=== PATIENT | female | born 1960 | race Two or more races ===

== ENCOUNTER 2023-03-25 09:50 | Emergency (ER) | payer OTHER, SELFPAY ==
[2023-03-25 10:05] VITALS: BP 140/89; PULSE 82; RESP 18; TEMP 36.1; O2SAT 99; BMI 36.6
[2023-03-25 11:07] LABS: MANUAL DIFF FLAG NO
[2023-03-25 11:17] LABS: Basophils Absolute Auto 0.1 X10*3/uL (0.0-0.2); Basophils Percent Auto 1.4 % (0-2); Eosinophils Absolute Auto 0.2 X10*3/uL (0.0-0.4); Eosinophils Percent Auto 2.7 % (0-4); Hematocrit 43.9 % (37.0-47.0); Hemoglobin 14.4 g/dl (12.0-16.0); Imm Gran Pct Auto 1.5 % (0.0-0.4); Lymphocytes Absolute Auto 2.3 X10*3/uL (1.2-4.9); Lymphocytes Percent Auto 34.7 % (20-40); Mean Corpuscular HGB Conc 32.8 g/dl (31.0-35.0); Mean Corpuscular Hemoglobin 30.3 pg (27.0-33.0); Mean Corpuscular Volume 92.4 fL (80.0-98.0); Mean Platelet Volume 10.2 fL (9.4-12.3); Monocytes Absolute Auto 0.6 X10*3/uL (0.1-1.2); Monocytes Percent Auto 8.3 % (2-11); Neutrophils Absolute Auto 3.4 x10*3/uL (2.0-8.3); Neutrophils Percent Auto 51.4 % (45-73); Platelet Count 320 X10*3/uL (160-400); Red Blood Count 4.75 X10*6/uL (4.20-5.50); White Blood Count 6.7 X10*3/uL (4.8-10.8)
[2023-03-25 12:28] LABS: Anion Gap 15 (12-20); Blood Urea Nitrogen 23 mg/dL (9-16); Calcium 9.6 mg/dL (8.4-10.2); Carbon Dioxide 23 mmol/L (22-29); Chloride 108 mmol/L (96-108); Creatinine Clr Calc Pharmacy 94.4; Estimated Glomerular Filt Rate > 60; Glucose Random 105 mg/dL (60-115); Potassium 4.3 mmol/L (3.3-5.1); Sodium 142 mmol/L (135-145)
== END 2023-03-25 19:51 | disposition left against medical advice (07) ==
PROVIDERS: Emergency Provider Emergency Medicine
DX: R20.0 Anesthesia of skin (principal); Z53.21 Procedure and treatment not carried out due to patient leaving prior to being seen by health care provider
CPT/HCPCS: 36415; 80048; 85025; 99281; 99283

== ENCOUNTER 2023-12-01 12:48 | Outpatient (AMB) | payer OTHER, SELFPAY ==
[2023-12-01 13:25] VITALS: BP 138/96; PULSE 99; O2SAT 96; BMI 37.1
--- NOTE | 2023-12-01 13:25 | MHC.OFFVIS ---
Vital Signs 12/01/23 13:25 Height 5 ft 8 in Weight 244 lb BMI 37.1 BP 138/96 H Blood Pressure Location Rt brachial Position Sitting Pulse 99 Pulse Source Pulse Oximeter Pulse Oximetry (%) 96 Oxygen Delivery Method Room Air Intake Visit Reasons: ENP- Trigeminal Neuralgia - CONF Intake Note: Patient presents for trigeminal neuralgia Allergies Penicillins Allergy (Verified 12/01/23 13:28) Rash Medication List - Last Reconciled 12/01/23 by OLGA Haywood acetaminophen ER 650 mg PO TID albuterol sulfate 90 mcg/actuation (Ventolin HFA) inhalation amlodipine 5 mg PO DAILY atorvastatin 80 mg PO DAILY benzonatate 100 mg PO TID ezetimibe mg PO famotidine 20 mg PO DAILY gabapentin 200 mg PO BID hydrochlorothiazide 25 mg PO DAILY levothyroxine 125 mcg PO DAILY losartan 50 mg PO DAILY metoprolol succinate ER 200 mg PO DAILY omeprazole 20 mg PO DAILY oxybutynin chloride ER 5 mg PO DAILY pregabalin 50 mg PO TID sacubitril-valsartan 49-51 mg (Entresto) 1 tab PO BID sumatriptan succinate mg PO HPI Comments Details: Right-handed 63-yr-old female presents for new pt evaluation of headache disorder. Pt is accompanied by her , Russell. Pt reports she has been having a right sided electrical pain headache for at least a year w/o known precipitating causes. The pain runs from a focal spot in the right frontal area (just above the hairline) and runs down into the right eyebrow. The pain is severe. The pain occurs most mornings when she washes her face and then recurs throughout the day- with or without touch. The headache is not a/w photophobia, phonophobia, N/V, red eyes, focal weakness. Sometimes ice helps, some times not. Tylenol helps some. Previously has tried Gabapentin and Pregabalin- does not think these helped. She also has a h/o migraine- her last attack was 3 weeks ago. It is a severe pressure pain in the mid-frontal region and bilateral eyes a/w photophobia, phonophobia, dizziness, N/V, which lasts 1-2 days, and happens at times. Uses Sumatripatn 100mg prn, helps a little, well-tolerated. Head CT, [facility]- unremarkable. She has a strong family h/o aneurysm- her grandmother and maternal cousin and niece have had intracranial aneurysms. PMH and ROS are notable for:? General: Vision has been blurry but not more with the headaches. Had eye exam 2 weeks ago- plans to have left eye cataract surgery. Musculoskeletal disorders or injury: Chronic lower back pain radiates into RLE. Leg cramps at night. History of concussion/head injury: Unsure- once passed out while talking on the pay phone- this was yrs ago. 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 Pertinent denials include: Mood d/o, Sleep d/o, Clotting or hematology d/o, metabolic d/o, History of seizure PFSH Surgical History (Updated 12/01/23 @ 13:32 by OMER Deras) History of cardiac defibrillator placement H/O hernia repair Hx of tonsillectomy Hx of appendectomy H/O: hysterectomy Family History (Updated 12/01/23 @ 13:33 by OMER Deras) Mother Hyperlipidemia Sister Hyperlipidemia Social History (Updated 12/01/23 @ 13:33 by OMER Deras) Alcohol intake: never Patient Tobacco Use Status: Never used Tobacco Physical Exam Vital Signs: Last Vital Signs Pulse 99 12/01/23 13:25 BP 138/96 H 12/01/23 13:25 Pulse Ox 96 12/01/23 13:25 Oxygen Delivery Method Room Air 12/01/23 13:25 BMI result Body Mass Index 37.1 Const Orientation/consciousness: patient oriented x3 Resp Effort & Inspection: normal respiratory effort and able to speak in complete sentences Neuro Other: Palpable tenderness in right supraorbital and trochlear/supratrochlear distributions from right supraorbital notch and right trchlear notch through forehead and frontal region (does not extend into vertex)- this is more tender in supraorbital pathway. Otherwise no palpable tenderness in right temporal or ON distribution. General: patient oriented x3 Cranial nerves: Yes CN's II-XII intact bilaterally ( limits raising rt eyebrow d/t pain, however can raise both symmetrically) Cognition (Neuro): normal cognition Gait exam (Neuro): Normal gait present Motor exam (neuro): 5/5 motor strength present throughout Deep tendon reflexes (DTR's): Right triceps reflex intensity grade: 2+, Left triceps reflex intensity grade: 2+, Rt Biceps (C5, C6): 2+, Left biceps reflex intensity grade: 2+, Right brachioradialis reflex intensity grade: 2+, Left brachioradialis reflex intensity grade: 2+, Right patellar reflex intensity grade: 2+ and Left patellar reflex intensity grade: 2+ Coordination: [id number] test normal, tandem gait normal and Romberg test negative Pupils: Normal pupillary reactivity/response: bilateral Psych Appearance: grossly normal Mental Status: mental status grossly normal Speech and movement: Normal speech and movement present Affect: normal affect Attitude: cooperative Thought process: Normal thought process present Assessment & Plan Assessment & Plan (1) Neuralgia: Code(s): M79.2 - Neuralgia and neuritis, unspecified Category: Medical (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 Category: Medical (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 Check labs for common etiologies. For overall headache management: Optimize good self-care, including but not limited to maintaining a healthy diet, adequate fluid intake, adequate sleep, and engaging in regular physical activity. Track headaches, especially after any treatment regimen changes. For supraorbital and trochlear neuralgia headache: Trial Carbamazepine ER 100mg qhs x's 1 wk, then 100mg bid. Check baseline labs. Future considerations- nerve block For acute migraine headache treatment: Continue Sumatriptan 100mg prn, MR x's 1 in 2hrs. Previous acute migraine medication trials: no known others Acute migraine medication contraindications: None at this time For migraine headache prevention medication: Continue Metoprolol- used for HTN F/u upon review of above and pt to follow-up in in-clinic in 3 months or sooner prn. Orders: Orders CRP High Sensitivity Today E06.3 - Autoimmune thyroiditis, E78.5 - Hyperlipidemia, unspecified, G43.009 - Migraine without aura, not intractable, without status migrainosus, I10 - Essential (primary) hypertension, M79.2 - Neuralgia and neuritis, unspecified, R53.83 - Other fatigue TSH reflex Free T4 Today E06.3 - Autoimmune thyroiditis, E78.5 - Hyperlipidemia, unspecified, G43.009 - Migraine without aura, not intractable, without status migrainosus, I10 - Essential (primary) hypertension, M79.2 - Neuralgia and neuritis, unspecified, R53.83 - Other fatigue Vitamin B12 and Folate Today E06.3 - Autoimmune thyroiditis, E78.5 - Hyperlipidemia, unspecified, G43.009 - Migraine without aura, not intractable, without status migrainosus, I10 - Essential (primary) hypertension, M79.2 - Neuralgia and neuritis, unspecified, R53.83 - Other fatigue Hemoglobin A1c Today E06.3 - Autoimmune thyroiditis, E78.5 - Hyperlipidemia, unspecified, G43.009 - Migraine without aura, not intractable, without status migrainosus, I10 - Essential (primary) hypertension, M79.2 - Neuralgia and neuritis, unspecified, R53.83 - Other fatigue MR head/brain wo/w con Today G50.0 - Trigeminal neuralgia, H49.10 - Fourth [trochlear] nerve palsy, unspecified eye, Z82.49 - Family history of ischemic heart disease and other diseases of the circulatory system, Z85.118 - Personal history of other malignant neoplasm of bronchus and lung Complete Blood Count Auto Diff Today E06.3 - Autoimmune thyroiditis, E78.5 - Hyperlipidemia, unspecified, G43.009 - Migraine without aura, not intractable, without status migrainosus, I10 - Essential (primary) hypertension, M79.2 - Neuralgia and neuritis, unspecified, R53.83 - Other fatigue Comprehensive Met. Panel Today E06.3 - Autoimmune thyroiditis, E78.5 - Hyperlipidemia, unspecified, G43.009 - Migraine without aura, not intractable, without status migrainosus, I10 - Essential (primary) hypertension, M79.2 - Neuralgia and neuritis, unspecified, R53.83 - Other fatigue Erythrocyte Sedimentation Rate Today E06.3 - Autoimmune thyroiditis, E78.5 - Hyperlipidemia, unspecified, G43.009 - Migraine without aura, not intractable, without status migrainosus, I10 - Essential (primary) hypertension, M79.2 - Neuralgia and neuritis, unspecified, R53.83 - Other fatigue Lyme IgG/IgM w/reflex to WB Today E06.3 - Autoimmune thyroiditis, E78.5 - Hyperlipidemia, unspecified, G43.009 - Migraine without aura, not intractable, without status migrainosus, I10 - Essential (primary) hypertension, M79.2 - Neuralgia and neuritis, unspecified, R53.83 - Other fatigue AMANDA Reflex Titer and Pattern Today E06.3 - Autoimmune thyroiditis, E78.5 - Hyperlipidemia, unspecified, G43.009 - Migraine without aura, not intractable, without status migrainosus, I10 - Essential (primary) hypertension, M79.2 - Neuralgia and neuritis, unspecified, R53.83 - Other fatigue Rheumatoid Factor Today E06.3 - Autoimmune thyroiditis, E78.5 - Hyperlipidemia, unspecified, G43.009 - Migraine without aura, not intractable, without status migrainosus, I10 - Essential (primary) hypertension, M79.2 - Neuralgia and neuritis, unspecified, R53.83 - Other fatigue MR angio head wo con Today G50.0 - Trigeminal neuralgia, H49.10 - Fourth [trochlear] nerve palsy, unspecified eye, Z82.49 - Family history of ischemic heart disease and other diseases of the circulatory system Medications: New carbamazepine ER 100 mg PO BID 30 days 60 caps 3RF Coding Level of Care Code New Pt Level 4 (18735) Diagnoses Neuralgia M79.2 Supraorbital neuralgia G50.0 Trochlear nerve disease or syndrome H49.10 Migraine without aura G43.009 Family history of intracranial aneurysms Z82.49
== END 2023-12-01 14:39 | disposition home or self-care (01) ==
PROVIDERS: Visit Provider Nurse Practitioner Family
DX: G50.0 Trigeminal neuralgia (principal); H49.10 Fourth [trochlear] nerve palsy, unspecified eye; G43.009 Migraine without aura, not intractable, without status migrainosus; Z82.49 Family history of ischemic heart disease and other diseases of the circulatory system
CPT/HCPCS: 99204

== ENCOUNTER → 2023-12-01 12:48 | Outpatient (BNVA) | payer OTHER, SELFPAY | PROVIDERS: Visit Provider Nurse Practitioner Family | DX: G43.009 Migraine without aura, not intractable, without status migrainosus (principal); G50.0 Trigeminal neuralgia; H49.10 Fourth [trochlear] nerve palsy, unspecified eye; M54.50 Low back pain, unspecified; G89.29 Other chronic pain; Z82.49 Family history of ischemic heart disease and other diseases of the circulatory system | CPT/HCPCS: 99202 ==

== ENCOUNTER 2023-12-01 14:41 | Outpatient (REF) | payer OTHER, SELFPAY ==
[2023-12-01 17:43] LABS: MANUAL DIFF FLAG NO
[2023-12-01 17:53] LABS: Basophils Absolute Auto 0.1 X10*3/uL (0.0-0.2); Basophils Percent Auto 0.9 % (0-2); Eosinophils Absolute Auto 0.2 X10*3/uL (0.0-0.4); Eosinophils Percent Auto 2.4 % (0-4); Hematocrit 38.4 % (37.0-47.0); Hemoglobin 12.8 g/dl (12.0-16.0); Imm Gran Abs Auto 0.03 X10*3/uL (0.00-0.03); Imm Gran Pct Auto 0.3 % (0.0-0.4); Lymphocytes Absolute Auto 1.8 X10*3/uL (1.2-4.9); Lymphocytes Percent Auto 21.2 % (20-40); Mean Corpuscular HGB Conc 33.3 g/dl (31.0-35.0); Mean Corpuscular Hemoglobin 29.2 pg (27.0-33.0); Mean Corpuscular Volume 87.7 fL (80.0-98.0); Mean Platelet Volume 9.8 fL (9.4-12.3); Monocytes Absolute Auto 0.6 X10*3/uL (0.1-1.2); Monocytes Percent Auto 7.2 % (2-11); Neutrophils Absolute Auto 5.8 x10*3/uL (2.0-8.3); Platelet Count 280 X10*3/uL (160-400); Red Blood Count 4.38 X10*6/uL (4.20-5.50); Red Cell Distribution Width 13.9 % (11.0-16.0); White Blood Count 8.6 X10*3/uL (4.8-10.8)
[2023-12-01 17:55] LABS: Estimated Average Glucose 100 mg/dL; Hemoglobin A1c % 5.1 % (<6.0)
[2023-12-01 18:04] LABS: Alanine Aminotransferase 22 U/L (0-31); Albumin Level 4.5 g/dL (3.5-5.0); Alkaline Phosphatase 75 U/L (39-117); Anion Gap 14 (12-20); Aspartate Amino Transferase 17 U/L (5-31); Bilirubin Total 0.7 mg/dL (0.0-1.0); Blood Urea Nitrogen 20 mg/dL (9-16); Calcium 9.5 mg/dL (8.4-10.2); Carbon Dioxide 25 mmol/L (22-29); Chloride 108 mmol/L (96-108); Estimated Glomerular Filt Rate > 60; Glucose Random 93 mg/dL (60-115); Potassium 3.9 mmol/L (3.3-5.1); Sodium 143 mmol/L (135-145); Total Protein 7.4 g/dL (6.5-8.0)
[2023-12-01 18:19] LABS: TSH reflex Free T4 1.21 uIU/mL (0.32-4.0)
[2023-12-01 18:30] LABS: Rheumatoid Factor < 13.0 IU/mL (<15.0)
[2023-12-01 18:34] LABS: Folate 10.6 ng/mL (> or = 4.0); Vitamin B12 442 pg/mL (200-900)
[2023-12-01 18:36] LABS: Erythrocyte Sedimentation Rate 7 MM/HR (0-20)
[2023-12-02 12:48] LABS: Lyme Abs Screen <0.90 index
[2023-12-02 12:53] LABS: CRP High Sensitivity 4.3 mg/L
[2023-12-07 09:04] LABS: Anti Nuclear Antibody Screen NEGATIVE (NEGATIVE)
== END 2023-12-01 14:42 | disposition home or self-care (01) ==
LOC: HO.HKASLDS 14:41
PROVIDERS: Visit Provider Nurse Practitioner Family
DX: M79.2 Neuralgia and neuritis, unspecified (principal); G43.009 Migraine without aura, not intractable, without status migrainosus; R53.83 Other fatigue; I10 Essential (primary) hypertension; E78.5 Hyperlipidemia, unspecified; E06.3 Autoimmune thyroiditis
CPT/HCPCS: 36415; 80053; 82607; 82746; 83036; 84443; 85025; 85652; 86038; 86141; 86431; 86617; 86618

== ENCOUNTER 2024-02-08 08:28 | Outpatient (AMB) | payer OTHER, SELFPAY ==
[2024-02-08 09:24] VITALS: BMI 37.9
--- NOTE | 2024-02-08 09:24 | A.OFFVIS_ITS ---
Vital Signs 02/08/24 09:24 Height 5 ft 8 in Weight 249 lb BMI 37.9 Intake Visit Reasons: 3mo F/U Intake Note: Patient presents for 3 month follow up. Allergies Penicillins Allergy (Verified 02/08/24 09:27) Rash Medication List - Last Reconciled 02/08/24 by OLGA Haywood acetaminophen ER 650 mg PO TID albuterol sulfate 90 mcg/actuation (Ventolin HFA) inhalation amlodipine 5 mg PO DAILY atorvastatin 80 mg PO DAILY benzonatate 100 mg PO TID carbamazepine ER 100 mg PO BID 30 days ezetimibe mg PO famotidine 20 mg PO DAILY hydrochlorothiazide 25 mg PO DAILY levothyroxine 125 mcg PO DAILY losartan 50 mg PO DAILY metoprolol succinate ER 200 mg PO DAILY omeprazole 20 mg PO DAILY oxybutynin chloride ER 5 mg PO DAILY sacubitril-valsartan 49-51 mg (Entresto) 1 tab PO BID sumatriptan succinate mg PO HPI Comments Details: 63-yr-old female follows up for right-sided head pain. She continues to have up to 3-4 episodes of right sided facial pain.. Today pt clarifies- the headache starts as a severe electrical pain from a focal spot in the right frontal area (just above the hairline) and runs down into the mid right eyebrow, and takes over her eye and right [place] division I region. The pain is severe, repeated severe pains lasting 20 minutes. A/w restlessness, right eyelid swelling, possibly diaphoresis. Sometimes the pain is so severe she drops to he rknees. The worst attacks are at night between 2-4am, but can recurs up to 4 x's per day. Touching her right eye region can trigger an attack, but attacks can be triggered w/o touch. Attacks are not triggered by light tough, chewing, or wind exposure. Started Crabamazepine- has not helped. She had a [facility] ER eval for this last week- was tx'd w/ toradol- pt states was not very helpful. She has never tried Oxygen tx. She has not had brain ZMRI/MRA yet- unsure why not. HPI from 12/01/23: Right-handed 63-yr-old female presents for new pt evaluation of headache disorder. Pt is accompanied by her , Russell. Pt reports she has been having a right sided electrical pain headache for at least a year w/o known precipitating causes. The pain runs from a focal spot in the right frontal area (just above the hairline) and runs down into the right eyebrow. The pain is severe. The pain occurs most mornings when she washes her face and then recurs throughout the day- with or without touch. The headache is not a/w photophobia, phonophobia, N/V, red eyes, focal weakness. Sometimes ice helps, some times not. Tylenol helps some. Previously has tried Gabapentin and Pregabalin- does not think these helped. She also has a h/o migraine- her last attack was 3 weeks ago. It is a severe pressure pain in the mid-frontal region and bilateral eyes a/w photophobia, phonophobia, dizziness, N/V, which lasts 1-2 days, and happens at times. Uses Sumatripatn 100mg prn, helps a little, well-tolerated. Head CT, [facility]- unremarkable. She has a strong family h/o aneurysm- her grandmother and maternal cousin and niece have had intracranial aneurysms. PMH and ROS are notable for:? General: Vision has been blurry but not more with the headaches. Had eye exam 2 weeks ago- plans to have left eye cataract surgery. Musculoskeletal disorders or injury: Chronic lower back pain radiates into RLE. Leg cramps at night. History of concussion/head injury: Unsure- once passed out while talking on the pay phone- this was yrs ago. Respiratory d/o: Asthma COPD CV disease: HTN HLD Endocrine or metabolic d/o: Thyroid d/o History of syncope- unsure if had had more GI d/o: GERD, Constipation: STAFF PSYCHOLOGIST: post-menopausal Family history of migraine or other headache disorder: her dtr and mother. Pertinent denials include: Mood d/o, Sleep d/o, Clotting or hematology d/o, metabolic d/o, History of seizure PFSH Surgical History History of cardiac defibrillator placement H/O hernia repair Hx of tonsillectomy Hx of appendectomy H/O: hysterectomy Family History Mother Hyperlipidemia Sister Hyperlipidemia Social History Alcohol intake: never Patient Tobacco Use Status: Never used Tobacco Physical Exam Vital Signs: BMI result Body Mass Index 37.9 Const Orientation/consciousness: patient oriented x3 Resp Effort & Inspection: normal respiratory effort and able to speak in complete sentences Neuro Other: Pt declined scalp/forehead/orbital/trochlear palpation today- states will induce headache attack. 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 Category: Medical (3) Migraine without aura: Code(s): G43.009 - Migraine without aura, not intractable, without status migrainosus Category: Medical (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 Will check on status. Recheck ESR For overall headache management: * Optimize good self-care, including but not limited to maintaining a healthy diet, adequate fluid intake, adequate sleep, and engaging in regular physical activity. * Track headaches, especially after any treatment regimen changes. For cluster headache: Start Home high flow O2 12-15 lpm via non-rebreather mask at onset of attack- pt will need both M tank and E-tanks. Continue Sumatriptan 100mg prn, MR x's 1 in 2hrs. Future considerations- trial of verapamil. For supraorbital and trochlear neuralgia headache: Increase Carbamazepine ER from 100mg bid to 200mg bid. Trial adding Melatonin 3mg q evening. Recheck labs in 1 month. Future considerations- nerve block For acute migraine headache treatment: Continue Sumatriptan 100mg prn, MR x's 1 in 2hrs. Previous acute migraine medication trials: no known others Acute migraine medication contraindications: None at this time For migraine headache prevention medication: Continue Metoprolol- used for HTN F/u upon review of above and pt to follow-up in in-clinic in 3 months or sooner prn. Orders: Orders 2 Complete Blood Count Auto Diff 1 Month E78.5 - Hyperlipidemia, unspecified, G44.009 - Cluster headache syndrome, unspecified, not intractable, I10 - Essential (primary) hypertension, M79.2 - Neuralgia and neuritis, unspecified Erythrocyte Sedimentation Rate 02/08/24 E78.5 - Hyperlipidemia, unspecified, I10 - Essential (primary) hypertension, M79.2 - Neuralgia and neuritis, unspecified CRP High Sensitivity 02/08/24 E78.5 - Hyperlipidemia, unspecified, I10 - Essential (primary) hypertension, M79.2 - Neuralgia and neuritis, unspecified Comprehensive Met. Panel 1 Month E78.5 - Hyperlipidemia, unspecified, G44.009 - Cluster headache syndrome, unspecified, not intractable, I10 - Essential (primary) hypertension, M79.2 - Neuralgia and neuritis, unspecified Carbamazepine Tegretol 1 Month E78.5 - Hyperlipidemia, unspecified, G40.909 - Epilepsy, unspecified, not intractable, without status epilepticus, G44.009 - Cluster headache syndrome, unspecified, not intractable, I10 - Essential (primary) hypertension, M79.2 - Neuralgia and neuritis, unspecified Medications: New melatonin 3 mg PO BEDTIME 30 days PRN 30 tabs 3RF sleep Oxygen Home Use 10-15 lpm, at onset of headache, via non-rebreather mask x's up to 20 minutes per headache attack. M-tanks and E-tanks. 2 ea 11RF acute cluster headache treatment G44.009 - Cluster headache syndrome, unspecified, not intractable Changed From carbamazepine ER 100 mg PO BID 30 days 60 caps 3RF To carbamazepine ER 200 mg (2 x 100 mg) PO BID 30 days 120 caps 3RF Coding Level of Care Code Est Pt Level 4 (15879) Diagnoses Cluster headache G44.009 Supraorbital neuralgia G50.0 Migraine without aura G43.009 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
== END 2024-02-08 10:57 | disposition home or self-care (01) ==
PROVIDERS: Visit Provider Nurse Practitioner Family
DX: G44.009 Cluster headache syndrome, unspecified, not intractable (principal); G50.0 Trigeminal neuralgia; G43.009 Migraine without aura, not intractable, without status migrainosus; H49.10 Fourth [trochlear] nerve palsy, unspecified eye; M79.2 Neuralgia and neuritis, unspecified; Z82.49 Family history of ischemic heart disease and other diseases of the circulatory system
CPT/HCPCS: 99214

== ENCOUNTER → 2024-02-08 08:28 | Outpatient (BNVA) | payer OTHER, SELFPAY | PROVIDERS: Visit Provider Nurse Practitioner Family | DX: G44.009 Cluster headache syndrome, unspecified, not intractable (principal); G50.0 Trigeminal neuralgia; H49.10 Fourth [trochlear] nerve palsy, unspecified eye; E78.5 Hyperlipidemia, unspecified; I10 Essential (primary) hypertension; Z82.49 Family history of ischemic heart disease and other diseases of the circulatory system | CPT/HCPCS: 99212 ==

== ENCOUNTER 2024-02-08 11:07 | Outpatient (REF) | payer OTHER, SELFPAY ==
[2024-02-08 14:33] LABS: Erythrocyte Sedimentation Rate 10 MM/HR (0-20)
[2024-02-10 17:47] LABS: CRP High Sensitivity 3.4 mg/L
== END 2024-02-08 11:08 | disposition home or self-care (01) ==
LOC: HO.HKASLDS 11:07
PROVIDERS: Visit Provider Nurse Practitioner Family
DX: M79.2 Neuralgia and neuritis, unspecified (principal); I10 Essential (primary) hypertension; E78.5 Hyperlipidemia, unspecified
CPT/HCPCS: 36415; 85652; 86141

== ENCOUNTER 2024-03-30 09:01 | Outpatient (REF) | payer OTHER, SELFPAY ==
--- NOTE | ~2024-03-30 | MR_ITS ---
EXAMINATION: MR BRAIN WITHOUT AND WITH CONTRAST MR ANGIOGRAPHY BRAIN WITHOUT CONTRAST CLINICAL INFORMATION: Trigeminal neuralgia. 4th nerve palsy. COMPARISON: None available. TECHNIQUE: Multiplanar, multisequence MRI of the brain was obtained using a skull base protocol without intravenous contrast. IV access was not able to be obtained. No contrast was utilized during this exam. 3D [id number] MR angiography was performed through the brain without the use of intravenous gadolinium. 3D postprocessing including acquisition of multiplanar MIP reformats are obtained at the technologist workstation and utilized for image interpretation. Stenoses are assessed in accordance with NASCET criteria unless otherwise indicated. FINDINGS: Brain MRI: No focal restricted diffusion is demonstrated to suggest acute or subacute cerebral ischemia. No evidence of acute or chronic hemorrhagic products on heme-sensitive imaging. Normal parenchymal signal characteristics. The ventricles are normal in morphology and size. No abnormal mass effect. No midline shift. Moderate expansion of the sella turcica with flattening of the pituitary gland. Normal positioning of the cerebellar tonsils. No mass of the cerebellopontine angles. Normal appearance of the cranial nerve V, VII, and VIII nerve roots. No edema or vascular loops near the nerve root entry sites. Normal appearance of the internal auditory canals. Normal appearance of the labyrinthine structures without loss of T2 signal. Normal arterial and venous vascular flow voids are present. No abnormal intracranial contrast enhancement. Normal, homogeneous marrow signal. Mild mucosal thickening of the paranasal sinuses. No signal abnormalities within the mastoids. No demonstrated abnormalities of the orbits on limited evaluation. Head MRA: Normal flow-related signal within the anterior circulation without evidence of focal stenosis or occlusion of the intradural internal carotid, middle cerebral, or anterior cerebral arteries. Normal flow-related signal within the posterior circulation without evidence of focal stenosis or occlusion of the intradural vertebral, basilar, superior cerebellar, or posterior cerebral arteries. No demonstrated intradural aneurysms. MR/MR angio head wo con IMPRESSION: 1. No acute intracranial abnormalities. No abnormal intracranial enhancement. 2. No MRI abnormalities to explain the patient's symptoms. 3. Normal MRA of the head. Electronically signed by: Wes Iverson DO 04/02/2024 03:32 PM [facility] [place]
--- NOTE | ~2024-03-30 | MR_ITS ---
EXAMINATION: MR BRAIN WITHOUT AND WITH CONTRAST MR ANGIOGRAPHY BRAIN WITHOUT CONTRAST CLINICAL INFORMATION: Trigeminal neuralgia. 4th nerve palsy. COMPARISON: None available. TECHNIQUE: Multiplanar, multisequence MRI of the brain was obtained using a skull base protocol without intravenous contrast. IV access was not able to be obtained. No contrast was utilized during this exam. 3D [id number] MR angiography was performed through the brain without the use of intravenous gadolinium. 3D postprocessing including acquisition of multiplanar MIP reformats are obtained at the technologist workstation and utilized for image interpretation. Stenoses are assessed in accordance with NASCET criteria unless otherwise indicated. FINDINGS: Brain MRI: No focal restricted diffusion is demonstrated to suggest acute or subacute cerebral ischemia. No evidence of acute or chronic hemorrhagic products on heme-sensitive imaging. Normal parenchymal signal characteristics. The ventricles are normal in morphology and size. No abnormal mass effect. No midline shift. Moderate expansion of the sella turcica with flattening of the pituitary gland. Normal positioning of the cerebellar tonsils. No mass of the cerebellopontine angles. Normal appearance of the cranial nerve V, VII, and VIII nerve roots. No edema or vascular loops near the nerve root entry sites. Normal appearance of the internal auditory canals. Normal appearance of the labyrinthine structures without loss of T2 signal. Normal arterial and venous vascular flow voids are present. No abnormal intracranial contrast enhancement. Normal, homogeneous marrow signal. Mild mucosal thickening of the paranasal sinuses. No signal abnormalities within the mastoids. No demonstrated abnormalities of the orbits on limited evaluation. Head MRA: Normal flow-related signal within the anterior circulation without evidence of focal stenosis or occlusion of the intradural internal carotid, middle cerebral, or anterior cerebral arteries. Normal flow-related signal within the posterior circulation without evidence of focal stenosis or occlusion of the intradural vertebral, basilar, superior cerebellar, or posterior cerebral arteries. No demonstrated intradural aneurysms. MR/MR head/brain wo con IMPRESSION: 1. No acute intracranial abnormalities. No abnormal intracranial enhancement. 2. No MRI abnormalities to explain the patient's symptoms. 3. Normal MRA of the head. Electronically signed by: Wes Iverson DO 04/02/2024 03:32 PM [facility]
--- OUTSIDE RECORDS SUMMARY | 2024-03-30 09:15 | XMS_ITS | Continuity of Care Document ---
Author Organization [facility] Address [address] [place] [address]- Care Team Providers Care Logistics Team Leader Name Role Phone Karime Mar MD, Nery German Primary Care Physicia n [id number] Date(s): 02/28/24 - 02/29/24 [facility] [address] [place] [address]- Discharge Disposition: A-D/C Walkout Attending Physician: Not on Staff, Attending MD Admitting Physician: Not on Staff, Admitting MD Referring Physician: Not on Staff, Referring MD Encounter Type: Disch ES Allergies, Adverse Reactions, Alerts Substance Criticality Severity Reaction Reaction Severity Status penicillin hives/swelling Acti ve Medications acetaminophen 650 mg oral tablet, extended release 0 Refills, Maintenance, 12/02/21 8:50:00 PM EDT, Partial fill upon patient request if the prescription is for a schedule II opioid drug. Start Date: 12/02/21 Status: Ordered Repeat number: 1 aspirin 81 mg oral delayed release tablet 81 mg, By Mouth, Daily, Refills 0, Maintenance, 12/03/21 5:03:00 PM EDT, Partial fill upon patient request if the prescription is for a schedule II opioid drug. Start Date: 12/03/21 Status: Ordered Repeat number: 1 carBAMazepine 100 mg oral tablet, extended release 200 mg, 2, tablet, By Mouth, 2 times a day, # 120 tablet, Refills 0, Tot. Refills 0, Maintenance, 01/28/24 2:44:00 PM EDT, Route to Pharmacy Electronically, [facility]/pharmacy #[id number], Partial fill upon patient request if the prescription is for a schedule II opioid drug., 170, cm, 01/28/24 13:16:00 EDT, Height, 110, kg, 07/15/23 11:11:00 EDT, Dry Weight Start Date: 01/28/24 Stop Date: 02/27/24 Status: Ordered Quantity: 120.0 Unit: tablet Repeat number: 1 diclofenac potassium 50 mg oral tablet TOME PHYLLIS TABLETA DOS VECES AL D A CUANDO SEA NECESARIO Start Date: 12/02/21 Status: Ordered Repeat number: 1 dicyclomine 10 mg oral capsule TAKE 1 CAPSULE BY MOUTH 3 TIMES DAILY NEEDED FOR DIARRHEA Start Date: 12/02/21 Status: Ordered Repeat number: 1 docusate sodium 100 mg oral capsule TOME PHYLILS C PSULA DOS VECES AL D A POR 10 D Start Date: 12/02/21 Status: Ordered Repeat number: 1 ezetimibe 10 mg oral tablet 1 tablet = 10 mg, By Mouth, Daily, 0 Refills, Maintenance, 10/26/23 6:48:00 AM EDT, Partial fill uponpatient request if the prescription is for a schedule II opioid drug. Start Date: 10/26/23 Status: Ordered Repeat number: 1 famotidine 20 mg oral tablet TAKE 1 TABLET BY MOUTH AT BEDTIME NEEDED FOR HEARTBURN. Start Date: 12/02/21 Status: Ordered Repeat number: 1 fluticasone 50 mcg/inh nasal spray 1 sprays, Nares, Both, 2 times a day, # 16 Gm, 0 Refills, Maintenance, 12/02/21 8:50:00 PM EDT, [facility], Partial fill upon patient request if the prescription is for a schedule II opioid drug. Start Date: 12/02/21 Status: Ordered Quantity: 16.0 Unit: g Repeat number: 1 gabapentin 300 mg oral capsule 300 mg, 1, capsule, By Mouth, Daily, Refills 0, Maintenance, 12/02/21 8:55:00 PM EDT, Partial fill upon patient request if the prescription is for a schedule II opioid drug. Start Date: 12/02/21 Status: Ordered Repeat number: 1 hydrochlorothiazide 25 mg oral tablet 25 mg, 1, tablet, By Mouth, Daily, 0 Refills Start Date: 08/05/07 Status: Ordered Repeat number: 1 levothyroxine 0.137 mg oral tablet TOME PHYLLIS TABLETA TODOS LOS D Start Date: 12/02/21 Status: Ordered Repeat number: 1 losartan 50 mg oral tablet TOME PHYLLIS TABLETA ESPINOSA D Start Date: 12/02/21 Status: Ordered Repeat number: 1 ondansetron 4 mg oral tablet, disintegrating 1 tablet = 4 mg, By Mouth, Every 8 hours, PRN Nausea & Vomiting, # 15 tablet, 0 Refills, Acute 03/25/24 3:00:00 AM EST, 02/24/24 3:54:00 AM EST, Tablet, [facility]/pharmacy #[id number], Partial fill upon patient request if the prescription is for a schedule II opioid drug., 173, cm, 02/23/24 22:33:00 EST, Height, 113.4, kg, 02/23/24 22:33:00 EST, Dry Weight Start Date: 02/24/24 Stop Date: 03/25/24 Status: Ordered Quantity: 15.0 Unit: tablet Repeat number: 1 oxybutynin 5 mg/24 hours oral tablet, extended release JOSEPH FERGUSON TABLETA BRUNO D Start Date: 12/02/21 Status: Ordered Repeat number: 1 pregabalin 50 mg oral capsule 1 capsule = 50 mg, By Mouth, 3 times a day, # 42 capsule, 0 Refills, Maintenance, 07/15/23 1:13:00 PM EDT, Capsule, [facility]/pharmacy #[id number], Partial fill upon patient request if the prescription is for a schedule II opioid drug., 173, cm, 07/15/23 11:11:00 EDT, Height, 110, kg, 07/15/23 11:11:00 EDT, DryWeight Start Date: 07/15/23 Stop Date: 07/29/23 Status: Ordered Quantity: 42.0 Unit: capsule Repeat number: 1 ProAir HFA 90 mcg/inh inhalation aerosol with adapter Refills 0, Maintenance, 12/02/21 8:51:00 PM EDT Start Date: 12/02/21 Status: Ordered Repeat number: 1 SUMAtriptan 100 mg oral tablet TAKE 1 TABLET BY MOUTH NEEDED FOR MIGRAINE. MAY RPT ONCE AFTER 2 HRS IF NEEDED MAX 2 TABLETS/DAY Start Date: 12/02/21 Status: Ordered Repeat number: 1 Problem List Condition Confirmation Course Effective Dates Status H ealth Status Informant Hyperlipidemia Confirmed Active Hypothyroid Confirmed Active Migraine Confirmed Active Severe obesity (BMI 35.0-39.9) with comorbidity Confirmed Active Vital Signs Most recent to oldest [Reference Range]: 1 2 Height 173 cm (02/28/24 9:59 PM) 173 cm (02/28/24 9:05 PM) Weight 112.5 kg (02/28/24 9:59 PM) 112.5 kg (02/28/24 9:05 PM) Oxygen Saturation [94-100 %] 100 % (02/29/24 12:49 AM) 99 % (02/28/24:05 PM) Pulse Rate [55-90 bpm] 81 bpm (02/29/24 12:49 AM) 80 bpm (02/28/24:05 PM) Body Mass Index [18.5-24.99 kg/m2] 37.59 kg/m2 *>HHI* (02/28/24:05 PM) Blood Pressure [90-138/55-84 mm Hg] 138/ 83mm Hg (02/29/24 12:49 AM) 151/94mm Hg *H* (02/28/24:05 PM) Respiratory Rate [16-30 br/min] 22 br/mi n (02/28/24:05 PM) Temperature [96.8-100.4 DegF] 98.2 DegF (02/29/24 12:49 AM) 97.7 DegF (02/28/24:05 PM) Mode of Delivery (Oxygen) Room air (02/28/24 9:05 PM) Blood pressure sites Arm, right (02/29/24 12:49 AM) Arm, left (02/28/24 9:05 PM) Temperature Route Oral (02/29/24 12:49 AM) Oral (02/28/24 9:05 PM) Dry Weight 112.5 kg (02/28/24 9:59 PM) 112.5 kg (02/28/24 9:05 PM) Weight Obtained Via Standing scale (02/28/24 9:05 PM) Dry Weight Obtained Via Standing scale (02/28/24 9:05 PM) Patient Care team information Care Team Personnel Name: Nery Valentine MD Position: Reference Physician Member Role: PCP Address: [address] [place] [address] [facility] [place] [phone] [place] [employer]: Care Team Related Persons Name: FAMILIA REN Name: TERRELL OTOOLE Name: YAMILE ROSARIO Insurance Providers Guarantor name: JUAN RASHID Health Plan Information #: 1 Payer: [employer] Member Number: [id number] Policy Number: NA Group Number: NA Health Plan Information #: 2 Payer: [employer] Member Number: [id number] Policy Number: NA Group Number: NA
== END 2024-03-30 09:02 | disposition home or self-care (01) ==
LOC: HO.MRI 09:01
PROVIDERS: PCP Internal Medicine; Visit Provider Nurse Practitioner Family
DX: G50.0 Trigeminal neuralgia (principal); H49.10 Fourth [trochlear] nerve palsy, unspecified eye; Z82.49 Family history of ischemic heart disease and other diseases of the circulatory system
CPT/HCPCS: 70544; 70551

== ENCOUNTER 2024-06-14 09:48 | Outpatient (AMB) | payer OTHER, SELFPAY ==
--- NOTE | 2024-06-14 09:55 | A.OFFVIS_ITS ---
Vital Signs 06/14/24 09:56 Height 5 ft 8 in Weight 245 lb BMI 37.2 BP 140/90 H Blood Pressure Location Rt brachial Position Sitting Pulse 75 Pulse Source Pulse Oximeter Pulse Oximetry (%) 96 Oxygen Delivery Method Room Air Intake Visit Reasons: Follow Up Intake Note: Patient presents follow up headaches. Labs in chart Relief Pilot Services: Relief Pilot Offered & Declined Allergies Penicillins Allergy (Verified 07/03/24 09:09) Rash Medication List - Last Reconciled 06/14/24 by OLGA Haywood acetaminophen ER 650 mg PO TID albuterol sulfate 90 mcg/actuation (Ventolin HFA) inhalation amlodipine 5 mg PO DAILY atorvastatin 80 mg PO DAILY benzonatate 100 mg PO TID carbamazepine ER 200 mg (2 x 100 mg) PO BID 30 days diclofenac potassium 50 mg PO BID PRN 30 days MDD max 15 days per month ezetimibe mg PO famotidine 20 mg PO DAILY hydrochlorothiazide 25 mg PO DAILY levothyroxine 125 mcg PO DAILY losartan 50 mg PO DAILY melatonin 3 mg PO BEDTIME PRN 30 days metoprolol succinate ER 200 mg PO DAILY omeprazole 20 mg PO DAILY oxybutynin chloride ER 5 mg PO DAILY Oxygen Home Use 10-15 lpm, at onset of headache, via non-rebreather mask x's up to 20 minutes per headache attack. M-tanks and E-tanks. sacubitril-valsartan 49-51 mg (Entresto) 1 tab PO BID sumatriptan succinate mg PO HPI Comments Details: History of Present Illness The patient is a 64-year-old female presenting with concerns regarding persistent cluster headaches and right facial pain. Denies significant interval medical history changes or hospitalizations. Her cluster headaches have improved. The cluster headaches still occur mostly during the middle of the night. However, they resolve with using p.r.n. O2 at 25 lpm via a non-rebreather mask after approximately 5 minutes. She continues have right facial pain- described as severe pulse-like bursts of right supratrocheear and right trochlear region. This is also a/w right eye redness/ptosis, Triggers include light touch, cold. Since the last visit, patient started on carbamazepine, which has had partial benefit. She has not has follow-up labs yet. Sumatriptan provides partial relief. Interval March 2024 brain MRI with and without contrast and brain MRA without contrast: Within normal limits 02/08/2024 follow-up HPI: She continues to have up to 3-4 episodes of right sided facial pain.. Today pt clarifies- the headache starts as a severe electrical pain from a focal spot in the right frontal area (just above the hairline) and runs down into the mid right eyebrow, and takes over her eye and right TN division I region. The pain is severe, repeated severe pains lasting 20 minutes. A/w restlessness, right eyelid swelling, possibly diaphoresis. Sometimes the pain is so severe she drops to he rknees. The worst attacks are at night between 2-4am, but can recurs up to 4 x's per day. Touching her right eye region can trigger an attack, but attacks can be triggered w/o touch. Attacks are not triggered by light tough, chewing, or wind exposure. Started Crabamazepine- has not helped. She had a [facility] ER eval for this last week- was tx'd w/ toradol- pt states was not very helpful. She has never tried Oxygen tx. She has not had brain ZMRI/MRA yet- unsure why not. HPI from 12/01/23: Right-handed 63-yr-old female presents for new pt evaluation of headache disorder. Pt is accompanied by her , Russell. Pt reports she has been having a right sided electrical pain headache for at least a year w/o known precipitating causes. The pain runs from a focal spot in the right frontal area (just above the hairline) and runs down into the right eyebrow. The pain is severe. The pain occurs most mornings when she washes her face and then recurs throughout the day- with or without touch. The headache is not a/w photophobia, phonophobia, N/V, red eyes, focal weakness. Sometimes ice helps, some times not. Tylenol helps some. Previously has tried Gabapentin and Pregabalin- does not think these helped. She also has a h/o migraine- her last attack was 3 weeks ago. It is a severe pressure pain in the mid-frontal region and bilateral eyes a/w photophobia, phonophobia, dizziness, N/V, which lasts 1-2 days, and happens at times. Uses Sumatripatn 100mg prn, helps a little, well-tolerated. Head CT, [facility]- unremarkable. She has a strong family h/o aneurysm- her grandmother and maternal cousin and niece have had intracranial aneurysms. PMH and ROS are notable for:? General: Vision has been blurry but not more with the headaches. Had eye exam 2 weeks ago- plans to have left eye cataract surgery. Musculoskeletal disorders or injury: Chronic lower back pain radiates into RLE. Leg cramps at night. History of concussion/head injury: Unsure- once passed out while talking on the pay phone- this was yrs ago. 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 Pertinent denials include: Mood d/o, Sleep d/o, Clotting or hematology d/o, metabolic d/o, History of seizure PFSH Surgical History History of cardiac defibrillator placement H/O hernia repair Hx of tonsillectomy Hx of appendectomy H/O: hysterectomy Family History Mother Hyperlipidemia Sister Hyperlipidemia Social History Alcohol intake: never Patient Tobacco Use Status: Never used Tobacco Physical Exam Vital Signs: Last Vital Signs Pulse 75 06/14/24 09:56 BP 140/90 H 06/14/24 09:56 Pulse Ox 96 06/14/24 09:56 Oxygen Delivery Method Room Air 06/14/24 09:56 BMI result Body Mass Index 37.2 Const Orientation/consciousness: patient oriented x3 Resp Effort & Inspection: normal respiratory effort and able to speak in complete sentences Neuro Other: Right scalp/forehead/orbital- tender to palpation Attempted Right trochlear- however patient reticent to have this area touched General: patient oriented x3 Cranial nerves: Yes CN's II-XII intact bilaterally ( limits raising rt eyebrow d/t pain, however can raise both symmetrically) Cognition (Neuro): normal cognition Gait exam (Neuro): Normal gait present Motor exam (neuro): 08/21 motor strength present throughout Psych Appearance: grossly normal Mental Status: mental status grossly normal Speech and movement: Normal speech and movement present Affect: normal affect Assessment & Plan Assessment & Plan (1) Cluster headache: Code(s): G44.009 - Cluster headache syndrome, unspecified, not intractable Category: Medical Qualifiers: Headache chronicity pattern: unspecified pattern Intractability: not intractable Qualified Code(s): G44.009 - Cluster headache syndrome, unspecified, not intractable (2) Supraorbital neuralgia: Comment: Right Code(s): G50.0 - Trigeminal neuralgia Category: Medical (3) Migraine without aura: Code(s): G43.009 - Migraine without aura, not intractable, without status migrainosus Category: Medical (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 We explored further management options for right facial neuralgia headache, such as increasing carbamazepine dosage and considering nerve block therapy to alleviate facial neuralgia. The necessity for blood tests due to carbamazepine side effects, along with proper monitoring, was emphasized. Referral to a pain clinic for nerve block assessment was agreed upon as a critical step forward. I also advised continuing with sumatriptan for acute headache relief, ensuring that a coordinated approach involving all current therapeutic modalities is maintained. Patient was informed and verbally consented to the use of an ambient scribefor clinic note documentation during this visit. For overall headache management: * Reviewed Brain MRI w/wo and Brain MRA results, which were within normal limits. * Optimize good self-care, including but not limited to maintaining a healthy diet, adequate fluid intake, adequate sleep, and engaging in regular physical activity. * Track headaches, especially after any treatment regimen changes. * Await contact from the pain clinic for potential nerve block evaluation. * Call the clinic if there are any significant changes in symptoms or lack of contact from the pain clinic. For cluster headache: Information shared on patient resources, such as clusterbusters.org. Continue Home high flow O2 15-25 lpm via non-rebreather mask at onset of attack- pt requires both M tank and E-tanks. Continue Sumatriptan 100mg prn, MR blackwell'radha Cadena in 2hrs. Future considerations- trial of verapamil, Emgality 300 mg subQ monthly during cluster attack. For supraorbital and trochlear neuralgia headache: Increase Carbamazepine ER from 100mg bid to 200mg bid. Trial adding Melatonin 3mg q evening. Recheck labs in 1 month. We will request pain management consult. For acute migraine headache treatment: Continue Sumatriptan 100mg prn, MR blackwell'radha 1 in 2hrs. Previous acute migraine medication trials: no known others Acute migraine medication contraindications: None at this time For migraine headache prevention medication: Continue Metoprolol- used for HTN Carbamazepine as ordered above Will follow-up upon review of above and patient to follow-up in clinic in 3-4 months or sooner prn. Orders: Orders Complete Blood Count Auto Diff 06/14/24 G44.009 - Cluster headache syndrome, unspecified, not intractable, H49.10 - Fourth [trochlear] nerve palsy, unspecified eye, G50.0 - Trigeminal neuralgia, I10 - Essential (primary) hypertension Comprehensive Met. Panel 06/14/24 G44.009 - Cluster headache syndrome, unspecified, not intractable, H49.10 - Fourth [trochlear] nerve palsy, unspecified eye, G50.0 - Trigeminal neuralgia, I10 - Essential (primary) hypertension Carbamazepine Tegretol 06/14/24 G40.909 - Epilepsy, unspecified, not intractable, without status epilepticus, G44.009 - Cluster headache syndrome, unspecified, not intractable, H49.10 - Fourth [trochlear] nerve palsy, unspecified eye, G50.0 - Trigeminal neuralgia, I10 - Essential (primary) hypertension Referrals Pain Management Referral H49.10 - Fourth [trochlear] nerve palsy, unspecified eye, G50.0 - Trigeminal neuralgia Coding Level of Care Code Est Pt Level 4 (04192) Complex EM visit Add On G2211 Diagnoses Cluster headache, not intractable, unspecified chronicity pattern G44.009 Headache chronicity pattern: unspecified pattern Intractability: not intractable Supraorbital neuralgia G50.0 Migraine without aura G43.009 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
[2024-06-14 09:56] VITALS: BP 140/90; PULSE 75; O2SAT 96; BMI 37.2
--- OUTSIDE RECORDS SUMMARY | 2024-06-14 11:28 | XMS_ITS | Encounter Summary ---
Author Organization Address [address] [place] [address] Care Team Providers Care Foam Fabricator Name Role Phone Nery Holly MD Primary Care Prov ider Reason for Visit * Reason Onset Date Comments follow up appt 06/12/2024 LVM for patient Encounter Details Date Type Department Care Team ([facility] Contact Info) Description 06/12/2024 Telephone Thoracic Surgery - [place] [address] [facility] [address] [place] [phone] Ivanna Last PA [address] [facility], [address] [id number] follow up appt (LVM for patient) Social History Tobacco Use Types Packs/Day Years [...] for your loved ones. 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 [...] on file documented as of this encounter Functional Status * Are you deaf or do you have serious difficulty hearing? Answer Date of Assessment Author No 03/16/2024 5:37 AM Elaine Cain RN * Are you blind or do you have serious difficulty seeing, even when wearing glasses? Answer Date of Assessment Author No 03/16/2024 5:37 AM Elaine Cain RN * Do you have serious difficulty walking or climbing stairs? Answer Date of Assessment Author No 03/16/2024 5:37 AM Elaine Cain RN * Do you have serious difficulty dressing or bathing? Answer Date of Assessment Author No 03/16/2024 5:37 AM Elaine Cain RN * Because of a physical, mental, or emotional condition, do you have serious difficulty doing errandsalone such as visiting the doctor? Answer Date of Assessment Author No 03/16/2024 5:37 AM Elaine Cain RN documented as of this encounter Mental Status * Because of a physical, mental, or emotional condition, do you have serious difficulty concentrating, remembering, or making decisions? 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 documented in this encounter Plan of Treatment Upcoming Encounters Date Type Department Care Team (Late st Contact Info) Description 08/02/2024 9:00 AM EDT Office Visit Adult Medicine [address] [phone] Nery Holly MD [address] [place] [id number] 09/22/2024 1:30 PM EDT Appointment Radiology Department - [address] [phone] 02/26/2025 9:00 AM EST Office Visit [facility] Hematology Oncology [address] [place] [phone] Darrell Randolph MD [address] [place] [address] documented as of this encounter Visit Diagnoses Not on filedocumented in this encounter Additional Health Concerns Assessment Noted Time PHQ-9 Depression Total Score: 0 04/11/20 9:58 AM EST documented as of this encounter Care Teams Foam Fabricator Relationship Specialty Start Date End Date Nery Holly MD [address] [place] [id number] PCP - General Internal Medicine 02/22/24 documented as of this encounter
--- OUTSIDE RECORDS SUMMARY | 2024-06-14 11:28 | XMS_ITS | Encounter Summary ---
Author Organization [facility] Address [address] [place] [address] Care Team Providers Care Edger Liner Name Role Phone Nery Holly MD Primary Care Prov ider Reason for Referral * Imaging (Routine) - Pending Review Specialty Diagnoses / Procedures Referred By Contac t Referred To Contact Radiology Diagnoses Abnormal CT of spine Procedures MR Cervical Spine wo and w Contrast Nery Holly MD [address] [place] [phone] Phone: tel: fax: [address] [phone] Phone: tel: Referral ID Status Reason Start Date Expiration Date V isits Requested Visits Authorized [id number] Pending Review 05/08/2024 05/08/2025 1 1 Reason for Visit * Imaging (Routine) - Pending Review Specialty Diagnoses / Procedures Referred By Contac t Referred To Contact Radiology Diagnoses Abnormal CT of spine Procedures MR Cervical Spine wo and w Contrast Nery Holly MD [address] [place] [address] Phone: tel: fax: [address] [phone] Phone: tel: Referral ID Status Reason Start Date Expiration Date V isits Requested Visits Authorized [id number] Pending Review 05/08/2024 05/08/2025 1 1 Encounter Details Date Type Department Care Team (Latest Contact Info) Description 05/30/2024 9:57 AM EST - 05/30/2024 11:59 PM EST Hospital Encounter [facility] [address] [place] [address] of spine Discharge Disposition: Home or Self Care Social History Tobacco Use Types Packs/Day Years [...] your loved ones. For example, early childhood special educator or elderly care for an older adult? [...] Elaine Cain RN documented in this encounter Medications at Time of Discharge acetaminophen (TYLENOL 8 HOUR) 650 mg 8 hr tablet Take 1 tablet (650 mg total) by mouth. 10/24/2019 albuterol 2.5 mg /3 mL (0.083 %) nebulizer solution Inhale 3 mL (2.5 mg total) into the lungs. 12/18/2019 aspirin 81 mg EC tablet Take 1 tablet (81 mg total) by mouth 1 (one) time each day. 12/03/2021 carbamide peroxide (Ear Drops, carbamide peroxide,) 6.5 % otic solution Place 5 drops in ear(s). 10/23/2020 cyclobenzaprine (FLEXERIL) 5 mg tablet Take 1 tablet (5 mg total) by mouth. 08/26/2020 diclofenac (VOLTAREN) 1 % topical gelIndications:Prima ry osteoarthritis of right knee,Primary osteoarthritis of left knee,History of recent fall Apply 4 g topically 4 (four) times a day if needed (pain or swelling). 100 g 2 03/22/2024 fluticasone propionate (FLONASE) 50 mcg/actuation nasal spray Two sprays per nostril once daily as needed for allergies 06/24/2020 gabapentin (NEURONTIN) 300 mg capsule Take 1 capsule (300 mg total) by mouth. 06/24/2020 hydroCHLOROthiazide (HYDRODIURIL) 25 mg tabletIndications:Es sential (primary) hypertension TOME 1 TABLETA POR VIA ORAL TODOS LOS BENJAMIN 90 tablet 1 02/22/2024 levothyroxine (SYNTHROID, LEVOTHROID) 150 mcg tablet Take 1 tablet (150 mcg total) by mouth 1 (one) time each day. 90 each 3 05/03/2024 losartan (COZAAR) 50 mg tablet Take 1 tablet (50 mg total) by mouth daily. 06/24/2020 meclizine (ANTIVERT) 25 mg tablet Take 1 tablet (25 mg total) by mouth. 12/18/2019 methocarbamoL (ROBAXIN) 500 mg tablet TAKE 1 TABLET (ORAL) 3 TIMES PER DAY CUANDO SEA NECESARIO FOR 5 DAYS 08/20/2020 ofloxacin (OCUFLOX) 0.3 % ophthalmic solution PUT 1 DROP INTO LEFT EYE 4 TIMES DAILY.. AFTER EYE SHIELD IS REMOVED IN OFFICE DAY AFTER SURGERY 04/18/2024 omeprazole (PriLOSEC) [address] capsule Take 1 capsule (40 mg total) by mouth. 09/12/2020 ondansetron (ZOFRAN) 4 mg tablet Take 1 tablet (4 mg total) by mouth. 09/05/2019 oxyBUTYnin XL (DITROPAN-XL) 5 mg 24 hr tablet Take 1 tablet (5 mg total) by mouth daily. 06/24/2020 oxyCODONE (ROXICODONE) 5 mg immediate release tablet TOME PHYLLIS TABLETA POR V A ORAL CADA CUATRO A SEIS HORAS CUANDO SEA NECESARIO PARA EL DOLOR 11/12/2020 senna 8.6 mg tablet TOME DOS TABLETAS POR V A ORAL AL ACOSTARSE 11/15/2020 sucralfate (CARAFATE) 1 gram tablet TAKE 1 TABLET BY MOUTH 2 TIMES DAILY (BEFORE MEALS) 11/11/2020 SUMAtriptan (IMITREX) 100 mg tablet Take 1 tablet (100 mg total) by mouth. 10/24/2019 documented as of this encounter Discharge Disposition Disposition Code Departure Means Destination Home or Self Care documented in this encounter Plan of Treatment Upcoming Encounters Date Type Department Care Team (Late st Contact Info) Description 08/02/2024 9:00 AM EDT Office Visit Adult Medicine [address] [phone] Nery Holly MD [address] [place] [phone] 09/22/2024 1:30 PM EDT Appointment Radiology Department - [address] [phone] 02/26/2025 9:00 AM EST Office Visit [facility] Hematology Oncology [address] [place] [phone] Darrell Randolph MD [address] [place] [address] documented as of this encounter Procedures Procedure Name Priority Date/Time Associated Diagnosis Comments MR CERVICAL SPINE WO AND W CONTRAST Routine 05/30/2024 11:[address] of spine documented in this encounter Results * MR Cervical Spine wo and w Contrast (05/30/2024 11:14 AM EST) Anatomical Region Laterality Modality C-spine, Spine Magnetic Resonan ce 05/30/2024 11:1 5 AM EST Impressions 05/30/2024 11:28 AM EST Stable subcentimeter enhancing intramedullary lesion at the level of C4 which may reflect sequelae of remote neurocysticercosis or a benign cavernous malformation, unchanged dating back to 2021. -------- FINAL REPORT -------- Dictated By: PRINCESS VEGA Dictated Date: 05/30/2024 11:15 ET Assigned Physician: PRINCESS VEGA Reviewed and Electronically Signed By: PRINCESS VEGA Signed Date: 05/30/2024 11:28 ET Workstation ID: [id number] Transcribed By: Self Edit Transcribed Date: 05/30/2024 11:15 ET Narrative 05/30/2024 11:28 AM EST PROCEDURE: Cervical spine MRI INDICATION: Abnormal CT, mass TECHNIQUE: Multiplanar, multisequence MRI of the Cervical spine without and with contrast. ??20 mL Dotarem injected intravenously without complication. COMPARISON: ??12/14/2021, 12/27/2021 FINDINGS: Mild anterolisthesis at C6-7 and C7-T1 related to degenerative facet arthritis. No fracture or suspicious marrow replacing lesion. Mild multilevel degenerative loss of normal disc height and signal with associated degenerative discogenic endplate change. 5 mm intramedullary signal abnormality at the level of C4 is similar compared to 2021 and demonstrates peripheral T1 hyperintensity and central low signal corresponding to calcification seen on CT. ??There is unchanged mild enhancement associated with lesions. No new cord signal abnormality or new abnormal enhancement within the spinal canal. ??No epidural collection. Paraspinal muscles are within normal limits. ??Foramen magnum and visualized intracranial structures are normal. Findings by level: C2-C3: No foraminal or spinal canal stenosis C3-C4: Mild right and no left foraminal stenosis secondary to uncovertebral spurring and facet arthropathy. ??No spinal canal stenosis. C4-C5: No foraminal or spinal canal stenosis C5-C6: No foraminal or spinal canal stenosis C6-C7: No foraminal or spinal canal stenosis C7-T1: Right facet arthropathy results in mild right and no left foraminal stenosis. ??No spinal canal stenosis. Procedure Note Princess Vega MD - 05/30/2024 PROCEDURE: Cervical spine MRI INDICATION: Abnormal CT, mass TECHNIQUE: Multiplanar, multisequence MRI of the Cervical spine withoutand with contrast. 20 mL Dotarem injected intravenously withoutcomplication. COMPARISON: 12/14/2021, 12/27/2021 FINDINGS: Mild anterolisthesis at C6-7 and C7-T1 related to degenerative facetarthritis. No fracture or suspicious marrow replacing lesion. Mild multilevel degenerative loss of normal disc height and signal withassociated degenerative discogenic endplate change. 5 mm intramedullary signal abnormality at the level of C4 is similarcompared to 2021 and demonstrates peripheral T1 hyperintensity and centrallow signal corresponding to calcification seen on CT. There is unchangedmild enhancement associated with lesions. No new cord signal abnormality or new abnormal enhancement within thespinal canal. No epidural collection. Paraspinal muscles are within normal limits. Foramen magnum andvisualized intracranial structures are normal. Findings by level: C2-C3: No foraminal or spinal canal stenosis C3-C4: Mild right and no left foraminal stenosis secondary touncovertebral spurring and facet arthropathy. No spinal canal stenosis. C4-C5: No foraminal or spinal canal stenosis C5-C6: No foraminal or spinal canal stenosis C6-C7: No foraminal or spinal canal stenosis C7-T1: Right facet arthropathy results in mild right and no left foraminalstenosis. No spinal canal stenosis. IMPRESSION: Stable subcentimeter enhancing intramedullary lesion at the level of [id number] may reflect sequelae of remote neurocysticercosis or a benigncavernous malformation, unchanged dating back to 2021. -------- FINAL REPORT -------- Dictated By: PRINCESS VEGA Dictated Date: 05/30/2024 11:15 ET Assigned Physician: PRINCESS VEGA Reviewed and Electronically Signed By: PRINCESS VEGA Signed Date: 05/30/2024 11:28 ET Workstation ID: [id number] Transcribed By: Self Edit Transcribed Date: 05/30/2024 11:15 ET Nery Holly MD IMG MRI PROCEDURES Final Result documented in this encounter Visit Diagnoses Diagnosis Abnormal CT of spine documented in this encounter Administered Medications Inactive Administered Medications - up to 3 most recent administrations Medication Order MAR Action Action Date Dose Rate Site gadoterate meglumine (CLARISCAN, DOTAREM) injection 20 mL 20 mL, intravenous, Once in imaging, Starting on Tu05/30/24 at 1036, For 1 dose Given 05/30/2024 11:14 AM EST 20 mL documented in this encounter Orders Medications Ordered That Cornell ht Not Have Been Administered Count Last Ordered Date First Ordered Date gadoterate meglumine (FLORENCE CAN, DOTAREM) injection 20 mL 1 05/30/2024 documented in this encounter Additional Health Concerns Assessment Noted Time PHQ-9 Depression Total Score: 0 04/11/20 9:58 AM EST documented as of this encounter Care Teams Edger Liner Relationship Specialty Start Date End Date Nery Holly MD [address] [place] [phone] PCP - General Internal Medicine 02/22/24 documented as of this encounter
--- OUTSIDE RECORDS SUMMARY | 2024-06-14 11:28 | XMS_ITS | Encounter Summary ---
Author Organization [facility] Address [address] [place] [address] Care Team Providers Care Mercerizer Name Role Phone María Cruz MD Primary Care Provider Mary wick Encounter Details Date Type Department Care Team (Late st Contact Info) Description 01/27/2024 9:30 AM EDT Hospital Encounter TH HISTORIC ENCOUNTERS EASTERN CONVERSION ONLY Darrell Randolph MD [address] [place] [phone] Social History Tobacco Use Types Packs/Day Years [...] for your loved ones. For example, child life assistant or elderly care for an older adult? [...] 9:00 AM EDT Office Visit Adult Medicine [facility] - [address] [phone] Nery Holly MD [address] [place] [phone] 09/22/2024 1:30 PM EDT Appointment Radiology Department - [address] [phone] 02/26/2025 9:00 AM EST Office Visit [facility] Hematology Oncology [address] [place] [phone] Darrell Randolph MD [address] [place] [phone] documented as of this encounter Visit Diagnoses Not on filedocumented in this encounter Care Teams Mercerizer Relationship Specialty Start Date End Date María Cruz MD Need Updated Address PCP - General 01/27/24 02/21/24 documented as of this encounter
--- OUTSIDE RECORDS SUMMARY | 2024-06-14 11:28 | XMS_ITS | Encounter Summary ---
Author Organization [facility] Address [address] [place] [address] Care Team Providers Care Fire Protection Specialist Name Role Phone María Cruz MD Primary Care Provider Mary wick Encounter Details Date Type Department Care Team (Late st Contact Info) Description 01/27/2024 8:40 AM EDT Hospital Encounter TH HISTORIC ENCOUNTERS EASTERN CONVERSION ONLY Darrell Randolph MD [address] [place] [phone] Social History Tobacco Use Types Packs/Day Years [...] for your loved ones. For example, child day care center worker or elderly care for an older adult? [...] is a 63 y.o. female. HPI: 63-year-old Kittitian-speaking female (history and physical done with the [...] respiratory symptom and have work-up by a meteorological observer including CT scan that showed left lung [...] lung (HCC) ADENOCARCINOMA OF LEFT LUNG 63-year-old Kittitian-speaking female, history and physical done with the [...] 9:00 AM EDT Office Visit Adult Medicine [address] [phone] Nery Holly MD [address] [place] [address] 09/22/2024 1:30 PM EDT Appointment Radiology Department - [address] [phone] 02/26/2025 9:00 AM EST Office Visit [facility] Hematology Oncology [address] [place] [phone] Darrell Randolph MD [address] [place] [address] documented as of this encounter Visit Diagnoses Not on filedocumented in this encounter Care Teams Fire Protection Specialist Relationship Specialty Start Date End Date María Cruz MD Need Updated Address PCP - General 01/27/24 02/21/24 documented as of this encounter
--- OUTSIDE RECORDS SUMMARY | 2024-06-14 11:28 | XMS_ITS | Clinical Summary ---
Author Organization [facility] Address [address] [place] [address] Phone Care Team Providers Care Travel Med Surg Rn Name Role Phone Nery Holly MD Primary Care Prov ider Allergies Active Allergy Reactions Criticality Noted Date Comments Penicillins Hives 09/02/2010 Medications acetaminophen (TYLENOL 8 HOUR) 650 mg 8 hr tablet Take 1 tablet (650 mg total) by mouth. 0 Active albuterol 2.5 mg /3 mL (0.083 %) nebulizer solution Inhale 3 mL (2.5 mg total) into the lungs. 0 Active carbamide peroxide (Ear Drops, carbamide peroxide,) 6.5 % otic solution Place 5 drops in ear(s). 1 Active cyclobenzaprine (FLEXERIL) 5 mg tablet Take 1 tablet (5 mg total) by mouth. 1 Active fluticasone propionate (FLONASE) 50 mcg/actuation nasal spray Two sprays per nostril once daily as needed for allergies 1 Active gabapentin (NEURONTIN) 300 mg capsule Take 1 capsule (300 mg total) by mouth. 1 Active losartan (COZAAR) 50 mg tablet Take 1 tablet (50 mg total) by mouth daily. 1 Active meclizine (ANTIVERT) 25 mg tablet Take 1 tablet (25 mg total) by mouth. 0 Active methocarbamoL (ROBAXIN) 500 mg tablet TAKE 1 TABLET (ORAL) 3 TIMES PER DAY CUANDO SEA NECESARIO FOR 5 DAYS 1 Active omeprazole (PriLOSEC) [address] capsule Take 1 capsule (40 mg total) by mouth. 1 Active ondansetron (ZOFRAN) 4 mg tablet Take 1 tablet (4 mg total) by mouth. 0 Active oxyBUTYnin XL (DITROPAN-XL) 5 mg 24 hr tablet Take 1 tablet (5 mg total) by mouth daily. 1 Active oxyCODONE (ROXICODONE) 5 mg immediate release tablet TOME PHYLLIS TABLETA POR V A ORAL CADA CUATRO A SEIS HORAS CUANDO SEA NECESARIO PARA EL DOLOR 1 Active senna 8.6 mg tablet TOME DOS TABLETAS POR V A ORAL AL ACOSTARSE 1 Active sucralfate (CARAFATE) 1 gram tablet TAKE 1 TABLET BY MOUTH 2 TIMES DAILY (BEFORE MEALS) 1 Active SUMAtriptan (IMITREX) 100 mg tablet Take 1 tablet (100 mg total) by mouth. 0 Active hydroCHLOROthiazid e (HYDRODIURIL) 25 mg tabletIndications: Essential (primary) hypertension TOME 1 TABLETA POR VIA ORAL TODOS LOS BENJAMIN 90 tablet 1 4 Active diclofenac (VOLTAREN) 1 % topical gelIndications:Susan manoj osteoarthritis of right knee,Primary osteoarthritis of left knee,History of recent fall Apply 4 g topically 4 (four) times a day if needed (pain or swelling). 100 g 2 4 Active aspirin 81 mg EC tablet Take 1 tablet (81 mg total) by mouth 1 (one) time each day. 2 Active ofloxacin (OCUFLOX) 0.3 % ophthalmic solution PUT 1 DROP INTO LEFT EYE 4 TIMES DAILY.. AFTER EYE SHIELD IS REMOVED IN OFFICE DAY AFTER SURGERY 4 Active levothyroxine (SYNTHROID, LEVOTHROID) 150 mcg tablet Take 1 tablet (150 mcg total) by mouth 1 (one) time each day. 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 States that her symptoms overall have decreased, but does continue to have some discomfort over her left chest wall. Even with her ongoing discomfort she states she is sleeping better and the pain she is experiencing currently is not interfering with her daily activities. ?? Patient continues to decline referral to a pain specialist. She would like to continue on the current dose of gabapentin. ?? I have sent in a refill for gabapentin 100 mg capsules with instructions to take 1 capsule 3 times daily. ?? Given that this is becoming a chronic medication for her, I would suggest the primary care physician take over this medication for closer monitoring and management. Patient is educated to call the office should she have any questions or concerns prior to her next appointment which will be following her CT scan in October 2023. Kati's thyroiditis 10/09/2022 Thyroid nodule 05/26/2022 Enlarged thyroid 05/07/2022 Overview (05/02/2024): Last Assessment & Plan: Palpably diffusely enlarged. No discrete nodules palpated. I recommended an US and if abnormal, will refer to PCP and ENT. She agrees to schedule this. Rhinitis 11/28/2021 Acute cystitis without hematuria 11/28/2021 Hyperlipidemia 11/20/2020 Assessment & Plan (05/05/2024 5:42 PM EST): Not on medications. Last LDL was 173. Pending to recheck labs and restart statins. She follows regularly with cardiology. Will recheck a lipid profile before her next visit. Orders: Lipid panel with reflex to direct LDL; Future DJD (degenerative joint disease) of knee 021 Fatty liver 07/12/2020 Overview (01/07/2024): Noted on US 2020 Helicobacter pylori gastritis 10/02/2019 Overview (01/07/2024): On EGD 09/26/2019 (Dr. Miller) Migraine without status migrainosus, not intract able 09/05/2019 Venous insufficiency 02/23/2018 Asthma-COPD overlap syndrome 08/27/2017 Assessment & Plan (05/05/2024 5:42 PM EST): No recent exacerbations, no visits to ER. Continue albuterol prn. Will continue to monitor. Pneumonitis 08/27/2017 Lung cancer 11/20/2014 Overview (01/07/2024): Left PET scan done [facility] 11/15/14 CT 07/11/2020 enlarging : Wedge resection converted to Left lower Lobectomy 10/29/2020 w/ pos intraoperative DX HTN (hypertension) 10/27/2013 Assessment & Plan (05/05/2024 5:42 PM EST): Today 102/72. Patient currently on Losartan, hctz. Recommended to follow a low- salt diet and exercise as much as she can. Mastalgia 02/20/2013 Sebaceous cyst 02/20/2013 Overview (05/02/2024): Last Assessment & Plan: I counseled her these are not worrisome. She is bothered by them and will return for excision. Diverticulitis 02/07/2013 Overview (01/07/2024): 01/2013 [facility] Lumbar facet arthropathy 01/21/2011 Hypothyroidism 09/02/2010 Assessment & Plan (05/05/2024 5:42 PM EST): Recent TSH 17.5. Will increase levothyroxine to 150mcg. Will recheck levels in 6 weeks. Orders: Thyroid stimulating hormone; Future Encounters Date Type Department Care Team Description 06/12/2024 Telephone Thoracic Surgery - [place] [address] [phone] Ivanna Last PA follow up appt (LVM for patient) 06/08/2024 Telephone Thoracic Surgery - [place] [address] [phone] Vanessa Gibbs MA 05/30/2024 9:57 AM EST - 05/30/2024 11:59 PM EST Hospital Encounter [facility] MRI [address] [place] [phone] of spine Discharge Disposition: Home or Self Care 05/08/2024 Telephone Adult Medicine [address] [phone] Nery Eden MD 05/04/2024 11:00 AM EST Office Visit Orthopedic [facility] [address] [phone] Yajaira Kunz NP Primary osteoarthritis of right knee (Primary Dx); Contusion of right knee, subsequent encounter; History of recent fall 05/03/2024 10:00 AM EST Office Visit Adult Medicine [address] [phone] Nery Eden MD Primary hypertension (Primary Dx); Mixed hyperlipidemia; Hypothyroidism, unspecified type; Asthma-COPD overlap syndrome (CMS/HCC) 05/01/2024 9:30 AM EST Office Visit [facility] Hematology Oncology [address] [place] [phone] Darrell Randolph MD Malignant neoplasm of lower lobe of left lung (CMS/HCC) (Primary Dx) 04/20/2024 Telephone Adult Medicine [address] [phone] Nery Eden MD offfice notes 04/11/2024 10:00 AM EST Consult Adult Medicine [address] [phone] Dominic Gramajo MD Preop examination (Primary Dx) 03/22/2024 11:30 AM EST Office Visit Orthopedic [facility] [address] [phone] Yajaira Kunz NP Primary osteoarthritis of right knee (Primary Dx); Primary osteoarthritis of left knee; History of recent fall; Contusion of right knee, subsequent encounter 03/16/2024 4:57 AM EST - 03/16/2024 10:33 AM EST Emergency [facility] Emergency [address] [place] [address] Contusion of soft tissue (Primary Dx) Discharge Disposition: Home or Self Care from Last 3 Months Surgical History Surgery Date Site/Laterality Comments EYE SURGERY PROCEDURE: HISTORICAL EYE SURGERY; COMMENT: left eye - glaucoma HERNIA REPAIR PROCEDURE: HISTORICAL HERNIA REPAIR/ING; COMMENT: left HYSTERECTOMY PROCEDURE: HISTORICAL TOTAL HYSTERECTOMY WITH BSO; COMMENT: in 3 different operations CHOLECYSTECTOMY PROCEDURE: HISTORICAL CHOLECYSTECTOMY CARPAL TUNNEL RELEASE PROCEDURE: HISTORICAL CARPAL TUNNEL REL; COMMENT: left COLONOSCOPY 11/10/2013 PROCEDURE: HISTORICAL COLONOSCOPY; COMMENT: tics; repeat in 10 yrs OTHER SURGICAL HISTORY 10/29/2020 PROCEDURE: HISTORY OTHER; COMMENT: VATS LLL lobectomy BREAST SURGERY 04/19/2016 Right PROCEDURE: MO UNLISTED PROCEDURE BREAST; COMMENT: neg Medical History Medical History Date Comments Essential hypertension, benign D X:Essential hypertension, benign Hypothyroidism DX:Hypothyroidis m Hyperlipidemia DX:Hyperlipidemi a Diverticulitis 02/07/2013 DX:Diverticuliti s; COMMENT: 01/2013 [facility] Sebaceous cyst 02/20/2013 DX:Sebaceous cys t Mastalgia 02/20/2013 DX:Mastalgia Moderate persistent asthma w ithout complication 04/08/2016 DX:Moderate persistent asthm a without complication Lumbar facet arthropathy 01/21/2011 DX:Lumb ar facet arthropathy Venous insufficiency 02/23/2018 DX:Venous i nsufficiency DJD (degenerative joint dise ase) of knee 09/19/2020 DX:DJD (degenerative joint d isease) of knee Lung cancer ([facility]/HCC) 11/20/2014 DX:Lung ca ncer (HCC); COMMENT: Left PET scan done [facility] 11/15/14 CT 07/11/2020 enlarging : Wedge resection converted to Left lower Lobectomy 10/29/2020 w/ pos intraoperative DX Family History Medical History Relation Name Comments Other: brain tumor Aunt 1 maternal maternal Breast cancer Aunt 2 maternal Hypertension Mother thyroid disorde r, hypercholesterolemia, arthritis Lung cancer Mother Other: brain tumor Other maternal first cou sin Colon cancer Neg Hx Diabetes Neg Hx Ovarian cancer Neg Hx Pancreatic cancer Neg Hx Prostate cancer Neg Hx Uterine cancer Neg Hx Relation Name Status Comments Aunt 1 maternal Aunt 2 maternal Alive Aunt 3 Daughter Alive Father Mother Other maternal Sister x 5 Alive Son x 4 Alive Social History Tobacco Use Types Packs/Day Years Used Date Smoking Tobacco: Never Smokeless Tobacco: Never Tobacco Cessation:Counseling Given: Not Answered Alcohol Use Standard Drinks/Week Comments No 0 [...] your loved ones. For example, child welfare manager or elderly care for an older [...] on file Sexual Orientation Not on file Obstetrics History Last Filed Vital Signs Vital Sign Reading Time Taken Comments Blood Pressure 108/72 05/03/2024 10:06 AM EST Pulse 92 05/03/2024 10:06 AM EST Temperature 36.2 ??C (97.1 ??F) 05/03/2024 10:[address] Respiratory Rate 16 05/03/2024 10:06 AM EST Oxygen Saturation 99% 05/01/2024 9:31 AM EST Inhaled Oxygen Concentration - - Weight 112 kg (246 lb) 05/03/2024 10:06 AM EST Height 170.2 cm (5' 7 ) 04/11/2024 9:58 AM EST Body Mass Index 38.53 04/11/2024 9:58 AM EST Plan of Treatment Upcoming Encounters Date Type Department Care Team (Late st Contact Info) Description 08/02/2024 9:00 AM EDT Office Visit Adult Medicine [address] [phone] Nery Holly MD [address] [place] [address] 09/22/2024 1:30 PM EDT Appointment Radiology Department - [address] [phone] 02/26/2025 9:00 AM EST Office Visit [facility] Hematology Oncology [address] [place] [phone] Darrell Randolph MD [address] [place] [address] Health Maintenance Due Date Last Done Comments Zoster Vaccines (1 of 2) 1980 Pneumococcal Vaccine: 50+ Years (2 of 2 - PCV) 04/30/2017 04/30/2016 Pneumococcal Vaccine: Pediatrics (0 to 5 Years) and At-Risk Patients (6 to 64 Years) (2 of 2 - PCV) 04/30/2017 04/30/2016 RSV Immunization Patients 60+ Years Old (1 - Risk 60-74 years 1-dose series) 2021 Colorectal Cancer Screening: Colonoscopy 03/28/2022 HIV Screening 03/28/2022 Hepatitis C Screening 03/28/2022 COVID-19 Vaccine ( season) 2023 06/09/2022, 06/14/2021, 10/09/2020, Additional history exists Influenza Vaccine (#1) 2023 12/24/2022, 2020 Hypertension/CHF/CAD Annual BMP Blood Test 03/22/2025 03/22/2024, 03/16/2024, 08/20/2023 Depression Screening 04/11/2025 04/11/2024 Social Influencers of Health Screening 04/11/2025 04/11/2024 Breast Cancer Screening 09/09/2025 09/10/19, 09/10/2023, 03/24/2023, Additional history exists Cholesterol Screening (Lipid Panel) 03/22/2029 03/22/2024 DTaP,Tdap,and Td Vaccines (3 - Td or Tdap) 10/23/2030 10/23/2020, 09/02/2010 HIB Vaccines Aged Out No longer eligi ble based on patient's age to complete this topic HPV Vaccines Aged Out No longer eligi ble based on patient's age to complete this topic Hepatitis A Vaccines Aged Out No long er eligible based on patient's age to complete this topic Hepatitis B Vaccines Aged Out No long er eligible based on patient's age to complete this topic IPV Vaccines Aged Out No longer eligi ble based on patient's age to complete this topic MMR Vaccines Aged Out No longer eligi ble based on patient's age to complete this topic Meningococcal ACWY Vaccine Aged Out N o longer eligible based on patient's age to complete this topic Meningococcal B Vacine Aged Out No lo nger eligible based on patient's age to complete this topic RSV Immunization Patients Under 20 months Aged Out No longer eligible based on patient's age to complete this topic Varicella Vaccines Aged Out No longer eligible based on patient's age to complete this topic Procedures Procedure Name Priority Date/Time Associated Diagnosis Comments MR CERVICAL SPINE WO AND W CONTRAST Routine 05/30/2024 11:[address] of spine MO ARTHROCENTESIS/ASPIRA TION/INJECTION MAJOR JOINT/BURSA W/O U/S GUIDANCE Routine 05/04/2024 11:00 AM EST Primary osteoarthritis of right knee ..MISCELLANEOUS REFERENCE LAB TEST 05/01/2024 THYROID STIMULATING HORMONE Routine 04/14/2024 9:50 AM EST Hypothyroidism, unspecified type LIPID PANEL WITH REFLEX TO DIRECT LDL Routine 03/22/2024 1:01 PM EST Hypothyroidism, adult Hematuria syndrome Essential hypertension, malignant THYROID STIMULATING HORMONE Routine 03/22/2024 1:01 PM EST Hypothyroidism, adult Hematuria syndrome Essential hypertension, malignant BASIC METABOLIC PANEL Routine 03/22/2024 1:01 PM EST Hypothyroidism, adult Hematuria syndrome Essential hypertension, malignant XR TIBIA FIBULA 2 VIEWS LEFT STAT 03/16/2024 9:16 AM EST XR KNEE 1-2 VIEWS RIGHT STAT 03/16/2024 9:16 AM EST XR ANKLE 3+ VIEWS RIGHT STAT 03/16/2024 9:16 AM EST XR FOOT 3+ VIEWS RIGHT STAT 03/16/2024 9:16 AM EST TROPONIN I HIGH SENSITIVITY STAT 03/16/2024 7:[address] CHEST WO CONTRAST STAT 03/16/2024 7:[address] CERVICAL SPINE WO CONTRAST STAT 03/16/2024 7:[address] MAXILLOFACIAL WO CONTRAST STAT 03/16/2024 7:[address] HEAD WO CONTRAST STAT 03/16/2024 7 :28 AM EST CBC WITH AUTO DIFFERENTIAL STAT 03/16/2024 6:10 AM EST TROPONIN I HIGH SENSITIVITY STAT 03/16/2024 6:10 AM EST MAGNESIUM STAT 03/16/2024 6:10 AM EST BASIC METABOLIC PANEL STAT 03/16/2024 6:10 AM EST CBC AND DIFFERENTIAL STAT 03/16/2024 6:10 AM EST ECG 12-LEAD STAT 03/16/2024 5:55 AM EST ECG ANNOTATED 03/16/2024 DIAGNOSTIC MAMMOGRAPHY INCLUDING CAD BILATERAL Routine 09/10/2023 1:06 PM EDT Other abnormal and inconclusive findings on diagnostic imaging of breast from Last 3 Months or Most Recently Relevant to Health Maintenance Results * MR Cervical Spine wo and [...] 2021. -------- FINAL REPORT -------- Dictated By: AMBROCIO HALL Dictated Date: 05/30/2024 11:15 ET Assigned Physician: AMBROCIO HALL Reviewed and Electronically Signed By: AMBROCIO HALL Signed Date: 05/30/2024 11:28 ET Workstation ID: [id number] Transcribed By: Self Edit Transcribed Date: 05/30/2024 [...] stenosis. ??No spinal canal stenosis. Procedure Note Ambrocio Hall MD - 05/30/2024 PROCEDURE: Cervical spine MRI [...] enhancing intramedullary lesion at the level of [id number] may reflect sequelae of remote neurocysticercosis or a benigncavernous malformation, unchanged dating back to 2021. -------- FINAL REPORT -------- Dictated By: AMBROCIO HALL Dictated Date: 05/30/2024 11:15 ET Assigned Physician: AMBROCIO HALL Reviewed and Electronically Signed By: AMBROCIO HALL Signed Date: 05/30/2024 11:28 ET Workstation ID: [id number] Transcribed By: Self Edit Transcribed Date: 05/30/2024 11:15 ET Nery Holly MD IMG MRI PROCEDURES Final Result * MO ARTHROCENTESIS/ASPIRATION/INJECTION MAJOR JOINT/BURSA W/O U/S GUIDANCE (05/04/2024 11:00 AM EST) Narrative Cedric Whitehead MD - 05/04/2024 11:00 AM EST Yajaira Kunz NP ? 05/05/2024 11:45 AM L Inj/Asp: R knee Indications: pain Details: 25 G needle, anterolateral approach Medications: 40 mg triamcinolone acetonide 40 mg/mL Outcome: tolerated well, no immediate complications Informed Consent: ??Laterality: ??Right ??Relevant images/test results available and reviewed: yes ?Health status cleared: ??Yes ??Procedure/treatment, purpose, treatment alternatives, risks/potential complications and benefits explained: yes ?Patient questions answered: yes ?Patient agrees, verbalizes understanding, and wants to proceed: yes ?Consent given by: ??Patient ??Informed consent discussion completed by Physician/MANUEL with patient: ?? Verbal ??Pre-procedure timeout performed: yes ?? Yajaira Kunz NP IN CLINIC/BEDSIDE ORDER SHADI Final Result * Miscellaneous reference lab test (05/01/2024) Provider Onbase LAB BLOOD ORDERABLES Final Re sult * (ABNORMAL) Thyroid stimulating hormone (04/14/2024 9:50 AM EST) Only the most recent of2 resultswithin the time period is included. TSH 17.50(H) 0.40 - 4.00 mcIU/mL LAB CHEMISTRY METHOD 04/14/2024 10:53 AM [facility] Blood Venous blood specimen / Unknown Venipuncture / Unknown 04/14/2024 9:50 AM EST 04/14/2024 10:04 AM EST Nery Holly MD LAB BLOOD ORDERABL ES Final Result [facility] [address] [place] [address], * (ABNORMAL) Lipid panel with reflex to direct LDL (03/22/2024 1:01 PM EST) Cholesterol 308(H) 0 - 200 mg/dL LAB CHEMISTRY METHOD 03/22/2024 4:43 PM EST [facility] Triglycerides 447(H) 0 - 150 mg/dL LAB CHEMISTRY METHOD 03/22/2024 4:43 PM [facility] HDL 46 >=40 mg/dL LAB CHEMISTRY METHOD 03/22/2024 4:43 PM EST [facility] LDL Calculated 173(H) 0 - 100 mg/dL LAB CHEMISTRY METHOD 03/22/2024 4:43 PM [facility] Comment:Unable to calculate when triglycerides >400 mg/dL. VLDL Cholesterol Daniel 89.4 mg/dL LAB CHEMISTRY METHOD 03/22/2024 4:43 PM [facility] Comment:Unable to calculate when triglycerides >400 mg/dL. Non HDL Chol. (LDL+VLDL) 262(H) <145 mg/dL LAB CHEMISTRY METHOD 03/22/2024 4:43 PM [facility] Comment:Unable to calculate when triglycerides >400 mg/dL. Chol/HDL Ratio 6.7(H) 0.0 - 4.4 LAB CHEMISTRY METHOD 03/22/2024 4:43 PM [facility] Blood Venous blood specimen / Unknown Venipuncture / Unknown 03/22/2024 1:01 PM EST 03/22/2024 1:01 PM EST us Nery Holly MD LAB BLOOD ORDERABL ES Final Result [facility] [address] [place] [address], * (ABNORMAL) Basic metabolic panel (03/22/2024 1:01 PM EST) Only the most recent of2 resultswithin the time period is included. Sodium 143 133 - 145 mmol/L LAB CHEMISTRY METHOD 03/22/2024 4:39 PM [facility] Potassium 3.8 3.5 - 5.5 mmol/L LAB CHEMISTRY METHOD 03/22/2024 4:39 PM [facility] Chloride 109 96 - 110 mmol/L LAB CHEMISTRY METHOD 03/22/2024 4:39 PM [facility] CO2 27 21 - 32 mmol/L LAB CHEMISTRY METHOD 03/22/2024 4:39 PM [facility] Anion Gap 7 3 - 11 LAB CHEMISTRY METHOD 03/22/2024 4:39 PM [facility] Glucose 107(H) 70 - 100 mg/dL LAB CHEMISTRY METHOD 03/22/2024 4:39 PM [facility] BUN 22 5 - 25 mg/dL LAB CHEMISTRY METHOD 03/22/2024 4:39 PM [facility] Creatinine 0.83 0.50 - 1.10 mg/dL LAB CHEMISTRY METHOD 03/22/2024 4:39 PM [facility] eGFR 79 >=60 mL/min/1. 73m2 LAB CHEMISTRY METHOD 03/22/2024 4:39 PM [facility] Comment:Calculation based on the??Chronic Kidney Disease Epidemiology Collaboration (CKD-EPI) equation refit??without adjustment for race. BUN/Creatinine Ratio 26.5 LAB CHEMISTRY METHOD 03/22/2024 4:39 PM [facility] Calcium 9.2 8.5 - 10.5 mg/dL LAB CHEMISTRY METHOD 03/22/2024 4:39 PM [facility] Blood Venous blood specimen / Unknown Venipuncture / Unknown 03/22/2024 1:01 PM EST 03/22/2024 1:01 PM EST us Nery Holly MD LAB BLOOD ORDERABL ES Final Result [facility] [address] [place] [address], [place] [phone] * XR Foot 3+ Views Right (03/16/2024 9:16 AM EST) Anatomical Region Laterality Modality Lower Extremities, Foot Right [facility] 03/16/2024 9:22 AM EST Impressions 03/16/2024 9:23 AM EST No acute findings. -------- FINAL REPORT -------- Dictated By: Silviano Levi Dictated Date: 03/16/2024 09:22 ET Assigned Physician: Silviano Levi Reviewed and Electronically Signed By: Silviano Levi Signed Date: 03/16/2024 09:23 ET Workstation ID: [id number] Transcribed By: Self Edit Transcribed Date: 03/16/2024 09:22 ET Narrative 03/16/2024 9:23 AM EST Multiple views of the right foot, 03/16/2024. HISTORY: accidental fall. COMPARISON: None. FINDINGS: Bones appear demineralized. ??Mild degenerative changes throughout the interphalangeal joints. ??No fracture or focal bony lesion. ??Normal soft tissues. Procedure Note Silviano Levi MD - 03/16/2024 Multiple views of the right foot, 03/16/2024. HISTORY: accidental fall. COMPARISON: None. FINDINGS: Bones appear demineralized. Mild degenerative changes throughout theinterphalangeal joints. No fracture or focal bony lesion. Normal softtissues. IMPRESSION: No acute findings. -------- FINAL REPORT -------- Dictated By: Silviano Levi Dictated Date: 03/16/2024 09:22 ET Assigned Physician: Silviano Levi Reviewed and Electronically Signed By: Silviano Levi Signed Date: 03/16/2024 09:23 ET Workstation ID: [id number] Transcribed By: Self Edit Transcribed Date: 03/16/2024 09:22 ET [facility] XR PROCEDURES Final Result * XR Ankle 3+ Views Right (03/16/2024 9:16 AM EST) Anatomical Region Laterality Modality Lower Extremities, Ankle Right Radiogr [facility] Imaging 03/16/2024 9:23 AM EST Impressions 03/16/2024 9:24 AM EST No acute findings. -------- FINAL REPORT -------- Dictated By: Silviano Levi Dictated Date: 03/16/2024 09:23 ET Assigned Physician: Silviano Levi Reviewed and Electronically Signed By: Silviano Levi Signed Date: 03/16/2024 09:24 ET Workstation ID: [id number] Transcribed By: Self Edit Transcribed Date: 03/16/2024 09:23 ET Narrative 03/16/2024 9:24 AM EST Multiple views of the right ankle, 03/16/2024. HISTORY: accidental fall. COMPARISON: None. FINDINGS: Bones appear demineralized. ??Symmetric mortise. ??Normal talar dome. ??No joint effusion. ??Normal soft tissues. Procedure Note Silviano Levi MD - 03/16/2024 Multiple views of the right ankle, 03/16/2024. HISTORY: accidental fall. COMPARISON: None. FINDINGS: Bones appear demineralized. Symmetric mortise. Normal talar dome. Nojoint effusion. Normal soft tissues. IMPRESSION: No acute findings. -------- FINAL REPORT -------- Dictated By: Silviano Levi Dictated Date: 03/16/2024 09:23 ET Assigned Physician: Silviano Levi Reviewed and Electronically Signed By: Silviano Levi Signed Date: 03/16/2024 09:24 ET Workstation ID: [id number] Transcribed By: Self Edit Transcribed Date: 03/16/2024 09:23 ET [facility] IM[facility] XR PROCEDURES Final Result * XR Tibia Fibula 2 Views Left (03/16/2024 9:16 AM EST) Anatomical Region Laterality Modality Lower Extremities, Lower Leg Left Rad iographic Imaging 03/16/2024 9:24 AM EST Impressions 03/16/2024 9:24 AM EST No acute findings. -------- FINAL REPORT -------- Dictated By: Silviano Levi Dictated Date: 03/16/2024 09:24 ET Assigned Physician: Silviano Levi Reviewed and Electronically Signed By: Silviano Levi Signed Date: 03/16/2024 09:24 ET Workstation ID: [id number] Transcribed By: Self Edit Transcribed Date: 03/16/2024 09:24 ET Narrative 03/16/2024 9:24 AM EST Multiple views of the left tibia and fibula, 03/16/2024. HISTORY: accidental fall. COMPARISON: None. FINDINGS: Bones appear demineralized. ??Mild degenerative changes of the knee. ??No focal bony lesion or fracture. ??Soft tissues are unremarkable. Procedure Note Silviano Levi MD - 03/16/2024 Multiple views of the left tibia and fibula, 03/16/2024. HISTORY: accidental fall. COMPARISON: None. FINDINGS: Bones appear demineralized. Mild degenerative changes of the knee. Nofocal bony lesion or fracture. Soft tissues are unremarkable. IMPRESSION: No acute findings. -------- FINAL REPORT -------- Dictated By: Silviano Levi Dictated Date: 03/16/2024 09:24 ET Assigned Physician: Silviano Levi Reviewed and Electronically Signed By: Silviano Levi Signed Date: 03/16/2024 09:24 ET Workstation ID: [id number] Transcribed By: Self Edit Transcribed Date: 03/16/2024 09:24 ET [facility] XR PROCEDURES Final Result * XR Knee 1-2 Views Right (03/16/2024 9:16 AM EST) Anatomical Region Laterality Modality Lower Extremities, Knee Right [facility] 03/16/2024 9:20 AM EST Impressions 03/16/2024 9:22 AM EST No acute findings. -------- FINAL REPORT -------- Dictated By: Silviano Levi Dictated Date: 03/16/2024 09:20 ET Assigned Physician: Silviano Levi Reviewed and Electronically Signed By: Silviano Levi Signed Date: 03/16/2024 09:22 ET Workstation ID: [id number] Transcribed By: Self Edit Transcribed Date: 03/16/2024 09:20 ET Narrative 03/16/2024 9:22 AM EST Multiple radiographs of the right knee, 03/16/2024 9:20 AM. HISTORY: accidental fall. COMPARISON: None. FINDINGS: No joint effusion. ??Bones appear mildly demineralized. ??No focal bony lesion or fracture. ??Mild degenerative irregularity of the patellofemoral compartment. ??Small quadriceps insertion enthesophyte. Procedure Note Silviano Levi MD - 03/16/2024 Multiple radiographs of the right knee, 03/16/2024 9:20 AM. HISTORY: accidental fall. COMPARISON: None. FINDINGS: No joint effusion. Bones appear mildly demineralized. No focal bonylesion or fracture. Mild degenerative irregularity of the patellofemoralcompartment. Small quadriceps insertion enthesophyte. IMPRESSION: No acute findings. -------- FINAL REPORT -------- Dictated By: Silviano Levi Dictated Date: 03/16/2024 09:20 ET Assigned Physician: Silviano Levi Reviewed and Electronically Signed By: Silviano Levi Signed Date: 03/16/2024 09:22 ET Workstation ID: [id number] Transcribed By: Self Edit Transcribed Date: 03/16/2024 09:20 ET [facility] XR PROCEDURES Final Result * Troponin I high sensitivity (03/16/2024 7:44 AM EST) Only the most recent of2 resultswithin the time period is included. High Sensitivity Troponin I 10 <=54 ng/L LAB CHEMISTRY METHOD 03/16/2024 8:26 AM EST [facility] Blood Venous blood specimen / Unknown Venipuncture / Unknown 03/16/2024 7:44 AM EST 03/16/2024 7:56 AM EST Narrative [facility] - 03/16/2024 8:26 AM EST High levels of biotin in samples may falsely decrease hsTroponin values. ??Use caution when interpreting hsTroponin results in patients taking biotin who exhibit renal impairment (eGFR <60) or in patients taking more than 20 mg/day of biotin. us [facility] LAB BLOOD ORDERABLES Final Resul t [facility] [place] ([facility] [address] [place] [address], [place] [phone] * CT Cervical Spine wo Contrast (03/16/2024 7:28 AM EST) Anatomical Region Laterality Modality Spine, C-spine Computed Tomogra phy 03/16/2024 8:23 AM EST Impressions 03/16/2024 8:37 AM EST 1. ??No acute fracture or traumatic subluxation of the cervical spine. 2. ??Calcification in the anterior cervical cord at C4-5. ??Recommend further evaluation with a contrast-enhanced MRI of the cervical spine to exclude an associated mass. -------- FINAL REPORT -------- Dictated By: Silviano Levi Dictated Date: 03/16/2024 08:23 ET Assigned Physician: Silviano Levi Reviewed and Electronically Signed By: Silviano Levi Signed Date: 03/16/2024 08:37 ET Workstation ID: [id number] Transcribed By: Self Edit Transcribed Date: 03/16/2024 08:23 ET Narrative 03/16/2024 8:[address] cervical spine, 03/16/2024. HISTORY: Neck trauma, midline tenderness (Age 16-64y). TECHNIQUE: Noncontrast CT of the cervical spine with coronal and sagittal reformats. COMPARISON: None. Dose length product: ??Total for all concurrently acquired exams was 4439 mGy- cm. FINDINGS: Scattered atherosclerotic calcifications. ??Partially visible cardiac pacemaker leads. ??Mildly enlarged thyroid gland with suggestion of a small left thyroid nodule. ??The thyroid gland be better evaluated with ultrasound. ??Visualized lung apices are clear. No prevertebral soft tissue swelling or CT evidence of an acute epidural hematoma. There is a small calcification in the anterior cervical cord at C4-5. ??On axial images (series 8, image 93) there is a possible rim calcified structure to the right of the calcification. ??This is only seen on one axial image and may be artifactual. The visualized portions of the skull base are normal. Slight anterolisthesis at C7-T1. ??No fracture. ??Mild degenerative irregularity of the vertebral endplates and facet joints. ??No significant spinal stenosis. Procedure Note Silviano Levi MD - 03/16/2024 CT cervical spine, 03/16/2024. HISTORY: Neck trauma, midline tenderness (Age 16-64y). TECHNIQUE: Noncontrast CT of the cervical spine with coronal and sagittalreformats. COMPARISON: None. Dose length product: Total for all concurrently acquired exams was 4439mGy-cm. FINDINGS: Scattered atherosclerotic calcifications. Partially visible cardiacpacemaker leads. Mildly enlarged thyroid gland with suggestion of a smallleft thyroid nodule. The thyroid gland be better evaluated withultrasound. Visualized lung apices are clear. No prevertebral soft tissue swelling or CT evidence of an acute epiduralhematoma. There is a small calcification in the anterior cervical cord at C4-5. Onaxial images (series 8, image 93) there is a possible rim calcifiedstructure to the right of the calcification. This is only seen on oneaxial image and may be artifactual. The visualized portions of the skull base are normal. Slight anterolisthesis at C7-T1. No fracture. Mild degenerativeirregularity of the vertebral endplates and facet joints. No significantspinal stenosis. IMPRESSION: 1. No acute fracture or traumatic subluxation of the cervical spine. 2. Calcification in the anterior cervical cord at C4-5. Recommendfurther evaluation with a contrast-enhanced MRI of the cervical spine toexclude an associated mass. -------- FINAL REPORT -------- Dictated By: Silviano Levi Dictated Date: 03/16/2024 08:23 ET Assigned Physician: Silviano Levi Reviewed and Electronically Signed By: Silviano Levi Signed Date: 03/16/2024 08:37 ET Workstation ID: [id number] Transcribed By: Self Edit Transcribed Date: 03/16/2024 08:23 ET us [facility] CT PROCEDURES Final Result * CT Chest wo Contrast (03/16/2024 7:28 AM EST) Anatomical Region Laterality Modality Body Computed Tomogra phy 03/16/2024 8:23 AM EST Impressions 03/16/2024 8:33 AM EST 1. ??No acute traumatic findings. 2. ??4 mm right lower lobe pulmonary nodule. ??This does not require further follow-up per current [employer] society recommendations in the absence of risk factors for lung cancer. ??If there are lung cancer risk factors, recommendations are for an optional follow-up CT in one year. -------- FINAL REPORT -------- Dictated By: Silviano Levi Dictated Date: 03/16/2024 08:23 ET Assigned Physician: Silviano Levi Reviewed and Electronically Signed By: Silviano Levi Signed Date: 03/16/2024 08:33 ET Workstation ID: [id number] Transcribed By: Self Edit Transcribed Date: 03/16/2024 08:23 ET Narrative 03/16/2024 8:[address], 03/16/2024. TECHNIQUE: CT of the chest without intravenous contrast administration. ??Coronal and sagittal reformats and MIP reconstructions were created. Dose length product: Total for all concurrently acquired exams was 4439 mGy-cm. HISTORY: Chest trauma, minor COMPARISON: 02/15/2024. FINDINGS: Lungs/pleura: The central airways are clear and normal in caliber. ??Mild dependent atelectasis bilaterally. ??4 mm nodule at the right costophrenic angle, series 16 image 224. Lungs are otherwise clear. ??No pleural effusion. ??No pneumothorax. Mediastinum/jl: Mildly prominent heterogeneous thyroid gland with a possible nodule on the left. ??The thyroid could be further evaluated with ultrasound. ??No mediastinal mass or lymphadenopathy. ??No appreciable hilar lymphadenopathy on limited noncontrast evaluation. Vasculature: Normal caliber pulmonary arteries. ??Mild atherosclerotic calcifications. Cardiac: Biventricular and right atrial pacemaker leads. ??Upper normal heart size. Chest wall: Pacemaker generator in the left anterior chest wall. ??No mass or lymphadenopathy. Limited abdomen: Small low-attenuation lesion in the liver dome, probably a cyst but too small for definitive characterization. ??Benign-appearing rim calcified structure in the posterior right hepatic lobe. ??Cholecystectomy clips. Bones: No fracture. ??Degenerative changes of the spine. Procedure Note Silviano Levi MD - 03/16/[address], 03/16/2024. TECHNIQUE: CT of the chest without intravenous contrast administration.Coronal and sagittal reformats and MIP reconstructions were created. Dose length product: Total for all concurrently acquired exams was 4439mGy-cm. HISTORY: Chest trauma, minor COMPARISON: 02/15/2024. FINDINGS: Lungs/pleura: The central airways are clear and normal in caliber. Milddependent atelectasis bilaterally. 4 mm nodule at the right costophrenicangle, series 16 image 224. Lungs are otherwise clear. No pleuraleffusion. No pneumothorax. Mediastinum/lj: Mildly prominent heterogeneous thyroid gland with apossible nodule on the left. The thyroid could be further evaluated withultrasound. No mediastinal mass or lymphadenopathy. No appreciable hilarlymphadenopathy on limited noncontrast evaluation. Vasculature: Normal caliber pulmonary arteries. Mild atheroscleroticcalcifications. Cardiac: Biventricular and right atrial pacemaker leads. Upper normalheart size. Chest wall: Pacemaker generator in the left anterior chest wall. No massor lymphadenopathy. Limited abdomen: Small low-attenuation lesion in the liver dome, probablya cyst but too small for definitive characterization. Benign-appearingrim calcified structure in the posterior right hepatic lobe.Cholecystectomy clips. Bones: No fracture. Degenerative changes of the spine. IMPRESSION: 1. No acute traumatic findings. 2. 4 mm right lower lobe pulmonary nodule. This does not require furtherfollow- up per current Dejuan society recommendations in the absence ofrisk factors for lung cancer. If there are lung cancer risk factors,recommendations are for an optional follow-up CT in one year. -------- FINAL REPORT -------- Dictated By: Silviano Levi Dictated Date: 03/16/2024 08:23 ET Assigned Physician: Silviano Levi Reviewed and Electronically Signed By: Silviano Levi Signed Date: 03/16/2024 08:33 ET Workstation ID: [id number] Transcribed By: Self Edit Transcribed Date: 03/16/2024 08:23 ET [facility] CT PROCEDURES Final Result * CT Maxillofacial wo Contrast (03/16/2024 7:28 AM EST) Anatomical Region Laterality Modality Head and Neck Computed Tomogra phy 03/16/2024 8:10 AM EST Impressions 03/16/2024 8:17 AM EST No facial fracture. Small calcification in the anterior cervical cord at C4-5. ??Please see the discussion on accompanying cervical spine CT report. -------- FINAL REPORT -------- Dictated By: Silviano Levi Dictated Date: 03/16/2024 08:10 ET Assigned Physician: Silviano Levi Reviewed and Electronically Signed By: Silviano Levi Signed Date: 03/16/2024 08:17 ET Workstation ID: [id number] Transcribed By: Self Edit Transcribed Date: 03/16/2024 08:10 ET Narrative 03/16/2024 8:[address] of the face, 03/16/2024. HISTORY: Facial trauma. ??Fall. COMPARISON: None. TECHNIQUE: Noncontrast CT of the face with coronal and sagittal reformats. Dose length product: Total for all concurrently acquired exams was 4439 mGy-cm. FINDINGS: There is a small calcification in the anterior cervical cord at C4-5. ??Mild scattered atherosclerotic calcifications. ??Skull base soft tissues are otherwise unremarkable. Orbits are normal. Mastoids and middle ear spaces are clear. ??Skull base foramina are normal. ??The paranasal sinuses are clear. ??There is a small right maria d bullosa and slight leftward bowing of the inferior nasal septum. No fracture or suspicious bony lesion. ??Partially visible mild degenerative changes of the cervical spine. Procedure Note Silviano Levi MD - 03/16/2024 CT of the face, 03/16/2024. HISTORY: Facial trauma. Fall. COMPARISON: None. TECHNIQUE: Noncontrast CT of the face with coronal and sagittalreformats. Dose length product: Total for all concurrently acquired exams was 4439mGy-cm. FINDINGS: There is a small calcification in the anterior cervical cord at C4-5.Mild scattered atherosclerotic calcifications. Skull base soft tissuesare otherwise unremarkable. Orbits are normal. Mastoids and middle ear spaces are clear. Skull base foramina are normal.The paranasal sinuses are clear. There is a small right maria d bullosaand slight leftward bowing of the inferior nasal septum. No fracture or suspicious bony lesion. Partially visible milddegenerative changes of the cervical spine. IMPRESSION: No facial fracture. Small calcification in the anterior cervical cord at C4-5. Please see thediscussion on accompanying cervical spine CT report. -------- FINAL REPORT -------- Dictated By: Silviano Levi Dictated Date: 03/16/2024 08:10 ET Assigned Physician: Silviano Levi Reviewed and Electronically Signed By: Silviano Levi Signed Date: 03/16/2024 08:17 ET Workstation ID: [id number] Transcribed By: Self Edit Transcribed Date: 03/16/2024 08:10 ET [facility] CT PROCEDURES Final Result * CT Head wo Contrast (03/16/2024 7:28 AM EST) Anatomical Region Laterality Modality Head and Neck Computed Tomogra phy 03/16/2024 8:17 AM EST Impressions 03/16/2024 8:19 AM EST No acute intracranial findings. -------- FINAL REPORT -------- Dictated By: Silviano Lvei Dictated Date: 03/16/2024 08:17 ET Assigned Physician: Silviano Levi Reviewed and Electronically Signed By: Silviano Levi Signed Date: 03/16/2024 08:19 ET Workstation ID: [id number] Transcribed By: Self Edit Transcribed Date: 03/16/2024 08:17 ET Narrative 03/16/2024 8:[address] dated 03/16/2024. HISTORY: Head trauma, minor, normal mental status (Age 19-64y). COMPARISON: None. TECHNIQUE: Noncontrast head CT with coronal and sagittal reformats. Dose length product: Total for all concurrently acquired exams was 4439 ??mGy- cm. FINDINGS: Brain: No hemorrhage, edema, mass, or extra-axial fluid collection. ??No CT evidence of an acute large vessel infarct. ??Ventricles and sulci are age commensurate. ??Small partially empty sella. Sinuses/mastoids: The paranasal sinuses are clear. ??Hypoplastic right and non pneumatized left frontal sinus. Orbits: Normal. Calvarium: Normal. Other: The skull base soft tissues are normal. Procedure Note Silviano Levi MD - 03/16/[address] dated 03/16/2024. HISTORY: Head trauma, minor, normal mental status (Age 19-64y). COMPARISON: None. TECHNIQUE: Noncontrast head CT with coronal and sagittal reformats. Dose length product: Total for all concurrently acquired exams was 4439mGy-cm. FINDINGS: Brain: No hemorrhage, edema, mass, or extra-axial fluid collection. No CTevidence of an acute large vessel infarct. Ventricles and sulci are agecommensurate. Small partially empty sella. Sinuses/mastoids: The paranasal sinuses are clear. Hypoplastic right andnon pneumatized left frontal sinus. Orbits: Normal. Calvarium: Normal. Other: The skull base soft tissues are normal. IMPRESSION: No acute intracranial findings. -------- FINAL REPORT -------- Dictated By: Silviano Levi Dictated Date: 03/16/2024 08:17 ET Assigned Physician: Silviano Levi Reviewed and Electronically Signed By: Silviano Levi Signed Date: 03/16/2024 08:19 ET Workstation ID: [id number] Transcribed By: Self Edit Transcribed Date: 03/16/2024 08:17 ET [facility] CT PROCEDURES Final Result * CBC auto differential (03/16/2024 6:10 AM EST) [facility] WBC 8.2 4.8 - 10.8 K/mcL LAB HEMETOLOGY METHOD 03/16/2024 6:31 AM [facility] RBC 4.20 3.80 - 4.80 M/mcL LAB HEMETOLOGY METHOD 03/16/2024 6:31 AM [facility] Hemoglobin 12.3 11.5 - 16.0 g/dL LAB HEMETOLOGY METHOD 03/16/2024 6:31 AM [facility] Hematocrit 37.2 35.0 - 47.0 % LAB HEMETOLOGY METHOD 03/16/2024 6:31 AM [facility] MCV 89.6 79.0 - 98.0 FL LAB HEMETOLOGY METHOD 03/16/2024 6:31 AM [facility] MCH 29.6 27.0 - 32.0 pcg LAB HEMETOLOGY METHOD 03/16/2024 6:31 AM [facility] MCHC 33.1 32.0 - 37.0 g/dL LAB HEMETOLOGY METHOD 03/16/2024 6:31 AM [facility] RDW 14.0 11.0 - 15.0 % LAB HEMETOLOGY METHOD 03/16/2024 6:31 AM [facility] Platelets 273 130 - 400 K/[facility] LAB HEMETOLOGY METHOD 03/16/2024 6:31 AM [facility] MPV 9.3 7.0 - 11.0 FL LAB HEMETOLOGY METHOD 03/16/2024 6:31 AM [facility] NRBC 0.0 <1.0 % LAB HEMETOLOGY METHOD 03/16/2024 6:31 AM [facility] NRBC Absolute 0.00 <0.10 K/mcL LAB HEMETOLOGY METHOD 03/16/2024 6:31 AM [facility] Neutrophils Relative 75.8 % LAB HEMETOLOGY METHOD 03/16/2024 6:31 AM [facility] Lymphocytes Relative 13.9 % LAB HEMETOLOGY METHOD 03/16/2024 6:31 AM [facility] Monocytes Relative 7.6 % LAB HEMETOLOGY METHOD 03/16/2024 6:31 AM [facility] Eosinophils Relative 1.8 % LAB HEMETOLOGY METHOD 03/16/2024 6:31 AM [facility] Basophils Relative 0.7 % LAB HEMETOLOGY METHOD 03/16/2024 6:31 AM [facility] Immature Granulocytes Relative 0.2 % LAB HEMETOLOGY METHOD 03/16/2024 6:31 AM [facility] Neutrophils Absolute 6.22 1.50 - 7.00 K/mcL LAB HEMETOLOGY METHOD 03/16/2024 6:31 AM [facility] Lymphocytes Absolute 1.14 1.00 - 5.00 K/mcL LAB HEMETOLOGY METHOD 03/16/2024 6:31 AM [facility] Monocytes Absolute 0.62 0.20 - 1.00 K/mcL LAB HEMETOLOGY METHOD 03/16/2024 6:31 AM [facility] Eosinophils Absolute 0.15 0.00 - 0.50 K/mcL LAB HEMETOLOGY METHOD 03/16/2024 6:31 AM [facility] Basophils Absolute 0.06 0.00 - 0.20 K/mcL LAB HEMETOLOGY METHOD 03/16/2024 6:31 AM [facility] Immature Granulocytes Absolute 0.02 0.00 - 0.03 K/mcL LAB HEMETOLOGY METHOD 03/16/2024 6:31 AM [facility] Blood Venous blood specimen / Unknown Venipuncture / Unknown 03/16/2024 6:10 AM EST 03/16/2024 6:16 AM EST [facility] LAB BLOOD ORDERABLES Final Resul t [facility] [address] [place] [address], [place] [phone] * Magnesium (03/16/2024 6:10 AM EST) Magnesium 1.9 1.9 - 2.6 mg/dL LAB CHEMISTRY METHOD 03/16/2024 6:48 AM EST [facility] Blood Venous blood specimen / Unknown Venipuncture / Unknown 03/16/2024 6:10 AM EST 03/16/2024 6:16 AM EST [facility] LAB BLOOD ORDERABLES Final Resul t Performing Organization Address [facility] Co de Phone Number [facility] [address] [place] [address], [place] [phone] * ECG 12 lead (03/16/2024 5:55 AM EST) Ventricular Rate ECG 77 BPM [facility] Atrial Rate 77 BPM [facility] P-R Interval 156 ms [facility] QRS Duration 138 ms GEM[facility] Q-T Interval 452 ms GEM[facility] QTc 511 ms GEMUSE P Wave [place] 57 degrees GEMUSE R [place] 22 degrees GEMUSE T [place] 52 degrees GEMUSE ECG Interpretation Atrial-sensed ventricular-pa olu rhythm Abnormal ECG When compared with ECG of 16-MAR-2023 16:01, Electronic ventricular pacemaker has replaced Sinus rhythm Confirmed by ANA MARIA MOYER ([id number]) on 03/16/2024 2:31:01 PM [facility] 03/16/2024 5:55 AM EST 03/16/2024 2:31 PM EST [facility] ECG ORDERABLES Final Result Performing Organization Address City/[facility]/ZIP Co de Phone Number GEMUSE * ECG-Annotated (03/16/2024) us Provider Onbase ECG ORDERABLES Final Result * DIAGNOSTIC MAMMOGRAPHY INCLUDING CAD BILATERAL (09/10/2023 1:06 PM EDT) Anatomical Region Laterality Modality Mammography 03/24/2023 9:06 AM EST Narrative 09/10/2023 1:55 PM EDT This is a summary report. The complete report is available in the patient's medical record. If you cannot access the medical record, please contact the sending organization for a detailed fax or copy. Bilateral mammogram. History follow-up on asymmetric opacity in the right breast. Full-field digital 2D C views and tomosynthesis mammograms of both breast were obtained as well as spot compression views of the right breast with 2D and tomosynthesis in CC and MLO projections. ??Compared with prior studies, latest from 03/24/2023. Asymmetry of concern in the upper central right breast appears to be less conspicuous. ??There is no new suspicious masses, architectural distortion or microcalcifications. Conclusions: Probably benign asymmetric opacity in the right upper breast. ??Follow-up mammogram in 1 year with additional set of spot compression views. ??Appointment is scheduled. BI-RADS 3, probably benign findings. Procedure Note Anne Archibald MD - 12/06/2023 This is a summary report. The complete report is available in thepatient's medical record. If you cannot access the medical record, pleasecontact the sending organization for a detailed fax or copy. Bilateral mammogram. History follow-up on asymmetric opacity in the right breast. Full-field digital 2D C views and tomosynthesis mammograms of both breastwere obtained as well as spot compression views of the right breast with2D and tomosynthesis in CC and MLO projections. Compared with priorstudies, latest from 03/24/2023. Asymmetry of concern in the upper central right breast appears to be lessconspicuous. There is no new suspicious masses, architectural distortionor microcalcifications. Conclusions: Probably benign asymmetric opacity in the right upper breast.Follow-up mammogram in 1 year with additional set of spot compressionviews. Appointment is scheduled. BI-RADS 3, probably benign findings. us Addis Cope MD IMG BI PROCEDURES Final Res ult from Last 3 Months or Most Recently Relevant to Health Maintenance Insurance [facility] [employer] Care Teams Travel Med Surg Rn Relationship Specialty Start Date End Date Nery Holly MD [address] [place] [id number] PCP - General Internal Medicine 02/22/24
--- OUTSIDE RECORDS SUMMARY | 2024-06-14 11:28 | XMS_ITS | Encounter Summary ---
[facility] Address [address] [place] [address] Care Team Providers Care Tester Food Products Name Role Phone Nery Holly MD Primary Care Prov ider Reason for Referral * Imaging (Routine) - Pending Review Specialty Diagnoses / Procedures Referred By Contac t Referred To Contact Radiology Diagnoses Abnormal CT of spine Procedures MR Cervical Spine wo and w Contrast Nery Holly MD [address] [place] [address] Phone: tel: fax: [address] [address] Phone: tel: Referral ID Status Reason Start Date Expiration Date V isits Requested Visits Authorized [id number] Pending Review 05/08/2024 05/08/2025 1 1 Encounter Details Date Type Department Care Team (Late st Contact Info) Description 05/08/2024 Telephone Adult Medicine [address] [phone] Nery Holly MD [address] [place] [address] Social History Tobacco Use Types Packs/Day Years [...] documented in this encounter Progress Notes * Cassi Borja RN - 05/16/2024 1:18 PM EST Call to the pt and advised per provider A gentleman translating for her gave her the information * Nery Holly MD - 05/08/2024 1:28 PM EST Please call this patient and let her know that I ordered an MRI of her cervical spine as per radiology recommendation. * Nery Holly MD - 05/08/2024 1:26 PM EST ----- Message from Cassandra Harmon sent at 05/08/2024 8:49 AM EST ----- The attached patient report was identified in the FIND (Following INcidental Disease) Program. The recommendation of the Radiology Department is for your patient be scheduled for a??thyroid ultrasound and a cervical spine MRI, if appropriate. ? If it is not appropriate for the patient to receive this follow up or if patient has already received follow-up elsewhere or declined, please let us know so we can close this patients case.?? Otherwise, please move forward with ordering or scheduling the follow-up for your patient.?? Any questions,please contact us directly at [phone] [place] ([phone]). Kind Regards, [facility] FIND (Following INcidental Disease) Program documented in this encounter Plan of Treatment Upcoming Encounters Date Type Department Care Team (Late st Contact Info) Description 08/02/2024 9:00 AM EDT Office Visit Adult Medicine [address] [phone] Nery Holly MD [address] [place] [address] 09/22/2024 1:30 PM EDT Appointment Radiology Department [address] [phone] 02/26/2025 9:00 AM EST Office Visit [facility] Hematology Oncology [address] [place] [phone] Darrell Randolph MD [address] [place] [address] documented as of this encounter Results * MR Cervical Spine [...] Signed Date: 05/30/2024 11:28 ET Workstation ID: [id number] Transcribed By: Self Edit Transcribed Date: 05/30/2024 [...] enhancing intramedullary lesion at the level of R0vexxy may reflect sequelae of remote neurocysticercosis or a benigncavernous malformation, unchanged dating back to 2021. -------- FINAL REPORT -------- Dictated By: PRINCESS VEGA Dictated Date: 05/30/2024 11:15 ET Assigned Physician: PRINCESS VEGA Reviewed and Electronically Signed By: PRINCESS VEGA Signed Date: 05/30/2024 11:28 ET Workstation ID: [id number] Transcribed By: Self Edit Transcribed Date: 05/30/2024 11:15 ET us Nery Holly MD IMG MRI PROCEDURES Final Result documented in this encounter Visit Diagnoses Diagnosis Abnormal CT of spine- Primary Abnormal CT of spine documented in this encounter Additional Health Concerns Assessment Noted Time PHQ-9 Depression Total Score: 0 04/11/20 9:58 AM EST documented as of this encounter Care Teams Tester Food Products Relationship Specialty Start Date End Date Nery Holly MD [address] [place] [id number] PCP - General Internal Medicine 02/22/24 documented as of this encounter
--- OUTSIDE RECORDS SUMMARY | 2024-06-14 11:28 | XMS_ITS | Clinical Summary ---
[facility] Address [address] [place] [address] Care Team Providers Care Laborer/Grade Check Name Role Phone María Cruz MD Primary Care Provider [phone] Allergies Active Allergy Reactions Criticality Noted Date Comments Penicillins Hives 09/02/2010 Medications Medication Sig Dispensed Refills Start Date End Date Status acetaminophen (TYLENOL) 650 MG CR tablet Take 1 tablet (650 mg total) by mouth. 0 10/24/2019 Active albuterol (PROVENTIL) (2.5 MG/3ML) 0.083% nebulizer solution Inhale 3 mL (2.5 mg total) into the lungs. 0 12/18/2019 Active carbamide peroxide (DEBROX) 6.5 % otic solution Place 5 drops in ear(s). 0 10/23/2020 Active cyclobenzaprine (FLEXERIL) 5 MG tablet Take 1 tablet (5 mg total) by mouth. 0 08/26/2020 Active fluticasone (FLONASE) 50 MCG/ACT nasal spray Two sprays per nostril once daily as needed for allergies 0 06/24/2020 Active gabapentin (NEURONTIN) 300 MG capsule Take 1 capsule (300 mg total) by mouth. 0 06/24/2020 Active hydroCHLOROthiazide (HYDRODIURIL) tablet 25 mg Take 1 tablet (25 mg total) by mouth daily. 0 06/24/2020 Active levothyroxine (SYNTHROID) tablet 137 mcg Take 1 tablet (137 mcg total) by mouth daily. 0 11/18/2020 Active losartan (COZAAR) tablet 50 mg Take 1 tablet (50 mg total) by mouth daily. 0 06/24/2020 Active meclizine (ANTIVERT) 25 MG tablet Take 1 tablet (25 mg total) by mouth. 0 12/18/2019 Active methocarbamol (ROBAXIN) 500 MG tablet TAKE 1 TABLET (ORAL) 3 TIMES PER DAY CUANDO SEA NECESARIO FOR 5 DAYS 0 08/20/2020 Active omeprazole (PriLOSEC) 40 MG capsule Take 1 capsule (40 mg total) by mouth. 0 09/12/2020 Active ondansetron (ZOFRAN) 4 MG tablet Take 1 tablet (4 mg total) by mouth. 0 09/05/2019 Active oxybutynin (DITROPAN-XL) 5 MG 24 hr tablet Take 1 tablet (5 mg total) by mouth daily. 0 06/24/2020 Active oxyCODONE (ROXICODONE) 5 MG immediate release tablet TOME PHYLLIS TABLETA POR V A ORAL CADA CUATRO A SEIS HORAS CUANDO SEA NECESARIO PARA EL DOLOR 0 11/12/2020 Active Senna-Time 8.6 MG tablet TOME DOS TABLETAS POR V A ORAL AL ACOSTARSE 0 11/15/2020 Active sucralfate (CARAFATE) 1 g tablet TAKE 1 TABLET BY MOUTH 2 TIMES DAILY (BEFORE MEALS) 0 11/11/2020 Active SUMAtriptan (IMITREX) 100 MG tablet Take 1 tablet (100 mg total) by mouth. 0 10/24/2019 Active Active Problems Problem Noted Date Diagnosed Date Hyperlipidemia 11/20/2020 DJD (degenerative joint disease) of knee 021 Fatty liver 07/12/2020 Overview: Noted on US 2020 Helicobacter pylori gastritis 10/02/2019 Overview: On EGD 09/26/2019 (Dr. Miller) Migraine without status migrainosus, not intract able 09/05/2019 Venous insufficiency 02/23/2018 Asthma-COPD overlap syndrome 08/27/2017 Pneumonitis 08/27/2017 Lung cancer 11/20/2014 Overview: Left PET scan done [facility] 11/15/14 CT 07/11/2020 enlarging : Wedge resection converted to Left lower Lobectomy 10/29/2020 w/ pos intraoperative DX HTN (hypertension) 10/27/2013 Mastalgia 02/20/2013 Diverticulitis 02/07/2013 Overview: 01/[address] [facility] Lumbar facet arthropathy 01/21/2011 Hypothyroidism 09/02/2010 Family History Medical History Relation Name Comments Cancer Maternal Aunt Breast Cancer Mother Thyroid Relation Name Status Comments Maternal Aunt Mother Social History Tobacco Use Types Packs/Day Years Used Date Smoking Tobacco: Never Smokeless Tobacco: Never Alcohol Use Standard Drinks/Week Comments Never 0 (1 standard drink = 0.6 oz pur e alcohol) Sex and Gender Information Value Date Recorded Sex Assigned at Not on file Gender Identity Not on file Sexual Orientation Not on file Job Start Date Occupation Industry Not on file Not on file Not on file Last Filed Vital Signs Vital Sign Reading Time Taken Comments Blood Pressure 157/94 01/27/2024 9:32 AM EDT Pulse 83 01/27/2024 9:32 AM EDT Temperature 36.6 ??C (97.9 ??F) 01/27/2024 9:32 AM ED T Respiratory Rate - - Oxygen Saturation 100% 01/27/2024 9:32 AM EDT Inhaled Oxygen Concentration - - Weight 112 kg (247 lb) 01/27/2024 9:32 AM EDT Height 168.9 cm (5' 6.5 ) 08/10/2023 10:01 AM ED T Body Mass Index 39.27 08/10/2023 10:01 AM EDT Plan of Treatment Health Maintenance Due Date Last Done Comments Hepatitis C Screening 1961 COVID-19 Vaccine (#1) 1966 Depression Screening 1973 Preventative Health Evaluation 1979 Shingrix-Zoster Vaccine (1 o f 2) 1980 Cervical Cancer Screening (Pap Smear) 1982 Colon Cancer Screening (Colonoscopy) 2006 Breast Cancer Screening (Mammogram) 2011 Pneumococcal Vaccine (2 of 2 - PCV) 04/30/2017 04/30/2016 RSV Adult > 60+ Yrs or (1 - Risk 60-74 years 1-dose series) 2021 Influenza Vaccine (#1) 2023 3, 03/05/2021 DTap / Tdap / Td (3 - Td or Tdap) 10/23/2030 10/23/2020, 09/02/2010 Hepatitis B Vaccines Aged Out No long er eligible based on patient's age to complete this topic RSV Ped < 20 months Aged Out No longe r eligible based on patient's age to complete this topic Care Teams Laborer/Grade Check Relationship Specialty Start Date End Date María Cruz MD PCP - General Internal Medicine 11/13/20
--- OUTSIDE RECORDS SUMMARY | 2024-06-14 11:28 | XMS_ITS | Encounter Summary ---
Author Organization [facility] Address [address] [place] [address] Care Team Providers Care Stone Hand Name Role Phone Nery Holly MD Primary Care Prov ider Encounter Details Date Type Department Care Team ([facility] st Contact Info) Description 06/08/2024 Telephone Thoracic Surgery - [place] [address] [place] [address] Vanessa Gibbs MA Social History Tobacco Use Types Packs/Day Years [...] care for your loved ones. For example, director child development center or elderly care for an older adult? [...] Elaine Cain RN documented in this encounter Plan of Treatment Upcoming Encounters Date Type Department Care Team (Late st Contact Info) Description 08/02/2024 9:00 AM EDT Office Visit Adult Medicine East - [address] [phone] Nery Holly MD [address] [place] [address] 09/22/2024 1:30 PM EDT Appointment Radiology Department - [address] [phone] 02/26/2025 9:00 AM EST Office Visit [facility] Hematology Oncology [address] [place] [phone] Darrell Randolph MD [address] [place] [address] documented as of this encounter Visit Diagnoses Not on filedocumented in this encounter Additional Health Concerns Assessment Noted Time PHQ-9 Depression Total Score: 0 04/11/20 9:58 AM EST documented as of this encounter Care Teams Stone Hand Relationship Specialty Start Date End Date Nery Holly MD [address] [place] [address] PCP - General Internal Medicine 02/22/24 documented as of this encounter
== END 2024-06-14 10:36 | disposition home or self-care (01) ==
PROVIDERS: Visit Provider Nurse Practitioner Family
DX: G44.009 Cluster headache syndrome, unspecified, not intractable (principal); G50.0 Trigeminal neuralgia; G43.009 Migraine without aura, not intractable, without status migrainosus; H49.10 Fourth [trochlear] nerve palsy, unspecified eye; M79.2 Neuralgia and neuritis, unspecified; Z82.49 Family history of ischemic heart disease and other diseases of the circulatory system
CPT/HCPCS: 99214; G2211

== ENCOUNTER 2024-06-14 09:48 | Outpatient (REF) | payer OTHER, SELFPAY ==
--- OUTSIDE RECORDS SUMMARY | 2024-06-14 13:55 | XMS_ITS | Encounter Summary ---
[facility] Address [address] [place] [address] Care Team Providers Care Clinical Psychiatrist Name Role Phone Nery Holly MD Primary Care Prov ider Reason for Referral * Imaging (Routine) - Pending Review Specialty Diagnoses / Procedures Referred By Contac t Referred To Contact Radiology Diagnoses Abnormal CT of spine Procedures MR Cervical Spine wo and w Contrast Nery Holly MD [address] [place] [address] Phone: tel: fax: [address] [phone] Phone: tel: Referral ID Status Reason Start Date Expiration Date V isits Requested Visits Authorized [id number] Pending Review 05/08/2024 05/08/2025 1 1 Encounter Details Date Type Department Care Team (Late st Contact Info) Description 05/08/2024 Telephone Adult Medicine [address] [phone] Nery Holly MD [address] [place] [address] Social History Tobacco Use Types Packs/Day Years [...] care for your loved ones. For example, children teacher or elderly care for an older adult? [...] patient.?? Any questions,please contact us directly at [phone] [employer] ([phone]). Kind Regards, [facility] FIND (Following INcidental Disease) Program documented in this encounter Plan of Treatment Upcoming Encounters Date Type Department Care Team (Late st Contact Info) Description 08/02/2024 9:00 AM EDT Office Visit Adult Medicine [address] [phone] Nery Holly MD [address] [place] [address] 09/22/2024 1:30 PM EDT Appointment Radiology Department [address] [phone] 02/26/2025 9:00 AM EST Office Visit [facility] Hematology Oncology [address] [place] [phone] Darrell Randolph MD [address] [place] [address] documented as of this encounter Results * [...] Signed Date: 05/30/2024 11:28 ET Workstation ID: [id number] Transcribed By: Self Edit Transcribed Date: 05/30/2024 [...] enhancing intramedullary lesion at the level of [id number] may reflect sequelae of remote neurocysticercosis or a benigncavernous malformation, unchanged dating back to 2021. -------- FINAL REPORT -------- Dictated By: PRINCESS VEGA Dictated Date: 05/30/2024 11:15 ET Assigned Physician: PRINCESS VEGA Reviewed and Electronically Signed By: PRINCESS VEGA Signed Date: 05/30/2024 11:28 ET Workstation ID: [id number] Transcribed By: Self Edit Transcribed Date: 05/30/2024 11:15 ET us Nery Holly MD IMG MRI PROCEDURES Final Result documented in this encounter Visit Diagnoses Diagnosis Abnormal CT of spine- Primary Abnormal CT of spine documented in this encounter Additional Health Concerns Assessment Noted Time PHQ-9 Depression Total Score: 0 04/11/20 9:58 AM EST documented as of this encounter Care Teams Clinical Psychiatrist Relationship Specialty Start Date End Date Nery Holly MD [address] [place] [id number] PCP - General Internal Medicine 02/22/24 documented as of this encounter
--- OUTSIDE RECORDS SUMMARY | 2024-06-14 13:55 | XMS_ITS | Encounter Summary ---
Author Organization [facility] Address [address] [place] [address] Care Team Providers Care Manufacturing Operator Name Role Phone Nery Holly MD Primary Care Prov ider Encounter Details Date Type Department Care Team ([facility] st Contact Info) Description 06/08/2024 Telephone Thoracic Surgery - [place] [address] [place] [address] Vanessa Gibbs MA Social History [...] loved ones. For example, child day care provider or elderly care for an older adult? [...] EDT Office Visit Adult Medicine East - [address] [phone] Nery Holly MD [address] [place] [address] 09/22/2024 1:30 PM EDT Appointment Radiology Department - [address] [phone] 02/26/2025 9:00 AM EST Office Visit [facility] Hematology Oncology [address] [place] [address] Darrell Randolph MD [address] [place] [address] documented as of this encounter Visit Diagnoses Not on filedocumented in this encounter Additional Health Concerns Assessment Noted Time PHQ-9 Depression Total Score: 0 04/11/20 9:58 AM EST documented as of this encounter Care Teams Manufacturing Operator Relationship Specialty Start Date End Date Nery Holly MD [address] [place] [address] PCP - General Internal Medicine 02/22/24 documented as of this encounter
--- OUTSIDE RECORDS SUMMARY | 2024-06-14 13:55 | XMS_ITS | Encounter Summary ---
Author Organization [facility] Address [address] [place] [address] Care Team Providers Care Muffler Hand Name Role Phone María Cruz MD Primary Care Provider Mary wick Encounter Details Date Type Department Care Team (Late st Contact Info) Description 01/27/2024 8:40 AM EDT Hospital Encounter TH HISTORIC ENCOUNTERS EASTERN CONVERSION ONLY Darrell Randolph MD [address] [place] [phone] Social History Tobacco Use Types Packs/Day Years [...] for your loved ones. For example, children's tutor nursery or elderly care for an older adult? [...] is a 63 y.o. female. HPI: 63-year-old [place]-speaking female (history and physical done with the [...] respiratory symptom and have work-up by a welder tech including CT scan that showed left lung [...] lung (HCC) ADENOCARCINOMA OF LEFT LUNG 63-year-old [place]-speaking female, history and physical done with the [...] AM EDT Office Visit Adult Medicine [address] [phone] Nery Holly MD [address] [place] [address] 09/22/2024 1:30 PM EDT Appointment Radiology Department - [address] [phone] 02/26/2025 9:00 AM EST Office Visit [facility] Hematology Oncology [address] [place] [phone] Darrell Randolph MD [address] [place] [address] documented as of this encounter Visit Diagnoses Not on filedocumented in this encounter Care Teams Muffler Hand Relationship Specialty Start Date End Date María Cruz MD Need Updated Address PCP - General 01/27/24 02/21/24 documented as of this encounter
--- OUTSIDE RECORDS SUMMARY | 2024-06-14 13:55 | XMS_ITS | Clinical Summary ---
Author Organization [facility] Address [address] [place] [address] Phone Care Team Providers Care Button Breaker Name Role Phone Nery Holly MD Primary [...] 11/20/2014 Overview (01/07/2024): Left PET scan done [facility] 11/15/14 CT 07/11/2020 enlarging : Wedge resection [...] for excision. Diverticulitis 02/07/2013 Overview (01/07/2024): 01/2013 [facility] Lumbar facet arthropathy 01/21/2011 Hypothyroidism 09/02/2010 Assessment & Plan (05/05/2024 5:42 PM EST): Recent TSH 17.5. Will increase levothyroxine to 150mcg. Will recheck levels in 6 weeks. Orders: Thyroid stimulating hormone; Future Encounters Date Type Department Care Team Description 06/12/2024 Telephone Thoracic Surgery - [place] [address] [phone] Ivanna Last PA follow up appt (LVM for patient) 06/08/2024 Telephone Thoracic Surgery - [place] [address] [phone] Vanessa Gibbs MA 05/30/2024 9:57 AM EST - 05/30/2024 11:59 PM EST Hospital Encounter [facility] MRI [address] [place] [phone] of spine Discharge Disposition: Home or Self Care 05/08/2024 Telephone Adult Medicine [address] [phone] Nery Eden MD 05/04/2024 11:00 AM EST Office Visit Orthopedic [facility] [address] [phone] Yajaira Kunz NP Primary osteoarthritis of right knee (Primary Dx); Contusion of right knee, subsequent encounter; History of recent fall 05/03/2024 10:00 AM EST Office Visit Adult Medicine [address] [phone] Nery Eden MD Primary hypertension (Primary Dx); Mixed hyperlipidemia; Hypothyroidism, unspecified type; Asthma-COPD overlap syndrome (CMS/HCC) 05/01/2024 9:30 AM EST Office Visit [facility] Hematology Oncology [address] [place] [phone] Darrell Randolph MD Malignant neoplasm of lower lobe of left lung (CMS/HCC) (Primary Dx) 04/20/2024 Telephone Adult Medicine [address] [phone] Nery Eden MD offfice notes 04/11/2024 10:00 AM EST Consult Adult Medicine [address] [phone] Dominic Gramajo MD Preop examination (Primary Dx) 03/22/2024 11:30 AM EST Office Visit Orthopedic [facility] [address] [phone] Yajaira Kunz NP Primary osteoarthritis of right knee (Primary Dx); Primary osteoarthritis of left knee; History of recent fall; Contusion of right knee, subsequent encounter 03/16/2024 4:57 AM EST - 03/16/2024 10:33 AM EST Emergency [facility] Emergency [address] [place] [address] Contusion of soft tissue (Primary [...] LLL lobectomy BREAST SURGERY 04/19/2016 Right PROCEDURE: OK UNLISTED PROCEDURE BREAST; COMMENT: neg Medical History Medical History Date Comments Essential hypertension, benign D X:Essential hypertension, benign Hypothyroidism DX:Hypothyroidis m Hyperlipidemia DX:Hyperlipidemi a Diverticulitis 02/07/2013 DX:Diverticuliti s; COMMENT: 01/2013 [facility] Sebaceous cyst 02/20/2013 DX:Sebaceous cys t Mastalgia 02/20/2013 DX:Mastalgia Moderate persistent asthma w ithout complication 04/08/2016 DX:Moderate persistent asthm a without complication Lumbar facet arthropathy 01/21/2011 DX:Lumb ar facet arthropathy Venous insufficiency 02/23/2018 DX:Venous i nsufficiency DJD (degenerative joint dise ase) of knee 09/19/2020 DX:DJD (degenerative joint d isease) of knee Lung cancer ([facility]/HCC) 11/20/2014 DX:Lung ca ncer (HCC); COMMENT: Left PET scan done [facility] 11/15/14 CT 07/11/2020 enlarging : Wedge resection [...] for your loved ones. For example, children's service supervisor or elderly care for an older adult? [...] 9:00 AM EDT Office Visit Adult Medicine [address] [phone] Nery Holly MD [address] [place] [address] 09/22/2024 1:30 PM EDT Appointment Radiology Department - [address] [phone] 02/26/2025 9:00 AM EST Office Visit [facility] Hematology Oncology [address] [place] [phone] Darrell Randolph MD [address] [place] [address] Health Maintenance Due Date Last Done Comments [...] 11:[address] of spine [place] ARTHROCENTESIS/ASPIRA TION/INJECTION MAJOR JOINT/BURSA W/O U/S GUIDANCE [...] Signed Date: 05/30/2024 11:28 ET Workstation ID: [id number] Transcribed By: Self Edit Transcribed Date: 05/30/2024 [...] enhancing intramedullary lesion at the level of A2lrylf may reflect sequelae of remote neurocysticercosis or a benigncavernous malformation, unchanged dating back to 2021. -------- FINAL REPORT -------- Dictated By: AMBROCIO HALL Dictated Date: 05/30/2024 11:15 ET Assigned Physician: AMBROCIO HALL Reviewed and Electronically Signed By: AMBROCIO HALL Signed Date: 05/30/2024 11:28 ET Workstation ID: [id number] Transcribed By: Self Edit Transcribed Date: 05/30/2024 11:15 ET Nery Holly MD IMG MRI PROCEDURES Final Result * OK ARTHROCENTESIS/ASPIRATION/INJECTION MAJOR JOINT/BURSA W/O U/S GUIDANCE (05/04/2024 [...] mcIU/mL LAB CHEMISTRY METHOD 04/14/2024 10:53 AM [facility] Blood Venous blood specimen / Unknown Venipuncture / Unknown 04/14/2024 9:50 AM EST 04/14/2024 10:04 AM EST Nery Holly MD LAB BLOOD ORDERABL ES Final Result [facility] [address] [place] [address], * (ABNORMAL) Lipid panel with reflex to direct LDL (03/22/2024 1:01 PM EST) Cholesterol 308(H) 0 - 200 mg/dL LAB CHEMISTRY METHOD 03/22/2024 4:43 PM EST [facility] Triglycerides 447(H) 0 - 150 mg/dL LAB CHEMISTRY METHOD 03/22/2024 4:43 PM [facility] HDL 46 >=40 mg/dL LAB CHEMISTRY METHOD 03/22/2024 4:43 PM EST [facility] LDL Calculated 173(H) 0 - 100 mg/dL LAB CHEMISTRY METHOD 03/22/2024 4:43 PM [facility] Comment:Unable to calculate when triglycerides >400 mg/dL. VLDL Cholesterol Daniel 89.4 mg/dL LAB CHEMISTRY METHOD 03/22/2024 4:43 PM [facility] Comment:Unable to calculate when triglycerides >400 mg/dL. Non HDL Chol. (LDL+VLDL) 262(H) <145 mg/dL LAB CHEMISTRY METHOD 03/22/2024 4:43 PM [facility] Comment:Unable to calculate when triglycerides >400 mg/dL. Chol/HDL Ratio 6.7(H) 0.0 - 4.4 LAB CHEMISTRY METHOD 03/22/2024 4:43 PM [facility] Blood Venous blood specimen / Unknown Venipuncture / Unknown 03/22/2024 1:01 PM EST 03/22/2024 1:01 PM EST us Nery Holly MD LAB BLOOD ORDERABL ES Final Result [facility] [address] [place] [address], * (ABNORMAL) Basic metabolic panel (03/22/2024 1:01 PM EST) Only the most recent of2 resultswithin the time period is included. Sodium 143 133 - 145 mmol/L LAB CHEMISTRY METHOD 03/22/2024 4:39 PM [facility] Potassium 3.8 3.5 - 5.5 mmol/L LAB CHEMISTRY METHOD 03/22/2024 4:39 PM [facility] Chloride 109 96 - 110 mmol/L LAB CHEMISTRY METHOD 03/22/2024 4:39 PM [facility] CO2 27 21 - 32 mmol/L LAB CHEMISTRY METHOD 03/22/2024 4:39 PM [facility] Anion Gap 7 3 - 11 LAB CHEMISTRY METHOD 03/22/2024 4:39 PM [facility] Glucose 107(H) 70 - 100 mg/dL LAB CHEMISTRY METHOD 03/22/2024 4:39 PM [facility] BUN 22 5 - 25 mg/dL LAB CHEMISTRY METHOD 03/22/2024 4:39 PM [facility] Creatinine 0.83 0.50 - 1.10 mg/dL LAB CHEMISTRY METHOD 03/22/2024 4:39 PM [facility] eGFR 79 >=60 mL/min/1. 73m2 LAB CHEMISTRY METHOD 03/22/2024 4:39 PM [facility] Comment:Calculation based on the??Chronic Kidney Disease Epidemiology Collaboration (CKD-EPI) equation refit??without adjustment for race. BUN/Creatinine Ratio 26.5 LAB CHEMISTRY METHOD 03/22/2024 4:39 PM [facility] Calcium 9.2 8.5 - 10.5 mg/dL LAB CHEMISTRY METHOD 03/22/2024 4:39 PM [facility] Blood Venous blood specimen / Unknown Venipuncture / Unknown 03/22/2024 1:01 PM EST 03/22/2024 1:01 PM EST us Nery Holly MD LAB BLOOD ORDERABL ES Final Result [facility] [address] [place] [address], [place] [phone] * XR Foot 3+ Views Right (03/16/2024 [...] Signed Date: 03/16/2024 09:23 ET Workstation ID: [id number] Transcribed By: Self Edit Transcribed Date: 03/16/2024 [...] Signed Date: 03/16/2024 09:23 ET Workstation ID: [id number] Transcribed By: Self Edit Transcribed Date: 03/16/2024 [...] Signed Date: 03/16/2024 09:24 ET Workstation ID: [id number] Transcribed By: Self Edit Transcribed Date: 03/16/2024 09:23 ET Narrative 03/16/2024 9:24 AM EST Multiple views of the right ankle, 03/16/2024. HISTORY: accidental fall. COMPARISON: None. FINDINGS: Bones appear demineralized. ??Symmetric mortise. ??Normal talar dome. ??No joint effusion. ??Normal soft tissues. Procedure Note iSlviano Levi MD - 03/16/2024 Multiple views of [...] Signed Date: 03/16/2024 09:24 ET Workstation ID: [id number] Transcribed By: Self Edit Transcribed Date: 03/16/2024 [...] Signed Date: 03/16/2024 09:24 ET Workstation ID: [id number] Transcribed By: Self Edit Transcribed Date: 03/16/2024 [...] Signed Date: 03/16/2024 09:24 ET Workstation ID: [id number] Transcribed By: Self Edit Transcribed Date: 03/16/2024 [...] Signed Date: 03/16/2024 09:22 ET Workstation ID: [id number] Transcribed By: Self Edit Transcribed Date: 03/16/2024 [...] Signed Date: 03/16/2024 09:22 ET Workstation ID: [id number] Transcribed By: Self Edit Transcribed Date: 03/16/2024 09:20 ET [facility] IMG XR PROCEDURES Final Result * Troponin I high sensitivity (03/16/2024 7:44 AM EST) Only the most recent of2 resultswithin the time period is included. High Sensitivity Troponin I 10 <=54 ng/L LAB CHEMISTRY METHOD 03/16/2024 8:26 AM EST [facility] Blood Venous blood specimen / Unknown Venipuncture / Unknown 03/16/2024 7:44 AM EST 03/16/2024 7:56 AM EST Narrative [facility] - 03/16/2024 8:26 AM EST High levels of biotin in samples may falsely decrease hsTroponin values. ??Use caution when interpreting hsTroponin results in patients taking biotin who exhibit renal impairment (eGFR <60) or in patients taking more than 20 mg/day of biotin. us [facility] LAB BLOOD ORDERABLES Final Resul t [facility] ([facility]) [facility] [address] [place] [address], [place] [phone] * CT Cervical Spine wo Contrast (03/16/2024 [...] Signed Date: 03/16/2024 08:37 ET Workstation ID: [id number] Transcribed By: Self Edit Transcribed Date: 03/16/2024 [...] Signed Date: 03/16/2024 08:37 ET Workstation ID: [id number] Transcribed By: Self Edit Transcribed Date: 03/16/2024 08:23 ET us [facility] [place] PROCEDURES Final Result * CT Chest [...] Signed Date: 03/16/2024 08:33 ET Workstation ID: [id number] Transcribed By: Self Edit Transcribed Date: 03/16/2024 [...] are otherwise clear. No pleuraleffusion. No pneumothorax. Mediastinum/jl: Mildly prominent heterogeneous thyroid gland with apossible [...] Signed Date: 03/16/2024 08:33 ET Workstation ID: [id number] Transcribed By: Self Edit Transcribed Date: 03/16/2024 08:23 ET [facility] [place] PROCEDURES Final Result * CT Maxillofacial [...] Signed Date: 03/16/2024 08:17 ET Workstation ID: [id number] Transcribed By: Self Edit Transcribed Date: 03/16/2024 [...] -------- FINAL REPORT -------- Dictated By: Silviano eLvi Dictated Date: 03/16/2024 08:10 ET Assigned Physician: Silviano Levi Reviewed and Electronically Signed By: Silviano Levi Signed Date: 03/16/2024 08:17 ET Workstation ID: [id number] Transcribed By: Self Edit Transcribed Date: 03/16/2024 08:10 ET [facility] [place] PROCEDURES Final Result * CT Head [...] Signed Date: 03/16/2024 08:19 ET Workstation ID: [id number] Transcribed By: Self Edit Transcribed Date: 03/16/2024 [...] Signed Date: 03/16/2024 08:19 ET Workstation ID: [id number] Transcribed By: Self Edit Transcribed Date: 03/16/2024 08:17 ET [facility] [place] PROCEDURES Final Result * CBC auto differential (03/16/2024 6:10 AM EST) [facility] WBC 8.2 4.8 - 10.8 K/mcL LAB HEMETOLOGY METHOD 03/16/2024 6:31 AM [facility] RBC 4.20 3.80 - 4.80 M/mcL LAB HEMETOLOGY METHOD 03/16/2024 6:31 AM [facility] Hemoglobin 12.3 11.5 - 16.0 g/dL LAB HEMETOLOGY METHOD 03/16/2024 6:31 AM [facility] Hematocrit 37.2 35.0 - 47.0 % LAB HEMETOLOGY METHOD 03/16/2024 6:31 AM [facility] MCV 89.6 79.0 - 98.0 FL LAB HEMETOLOGY METHOD 03/16/2024 6:31 AM [facility] MCH 29.6 27.0 - 32.0 pcg LAB HEMETOLOGY METHOD 03/16/2024 6:31 AM [facility] MCHC 33.1 32.0 - 37.0 g/dL LAB HEMETOLOGY METHOD 03/16/2024 6:31 AM [facility] RDW 14.0 11.0 - 15.0 % LAB HEMETOLOGY METHOD 03/16/2024 6:31 AM [facility] Platelets 273 130 - 400 K/[facility] LAB HEMETOLOGY METHOD 03/16/2024 6:31 AM [facility] MPV 9.3 7.0 - 11.0 FL LAB HEMETOLOGY METHOD 03/16/2024 6:31 AM [facility] NRBC 0.0 <1.0 % LAB HEMETOLOGY METHOD 03/16/2024 6:31 AM [facility] NRBC Absolute 0.00 <0.10 K/mcL LAB HEMETOLOGY METHOD 03/16/2024 6:31 AM [facility] Neutrophils Relative 75.8 % LAB HEMETOLOGY METHOD 03/16/2024 6:31 AM [facility] Lymphocytes Relative 13.9 % LAB HEMETOLOGY METHOD 03/16/2024 6:31 AM [facility] Monocytes Relative 7.6 % LAB HEMETOLOGY METHOD 03/16/2024 6:31 AM [facility] Eosinophils Relative 1.8 % LAB HEMETOLOGY METHOD 03/16/2024 6:31 AM [facility] Basophils Relative 0.7 % LAB HEMETOLOGY METHOD 03/16/2024 6:31 AM [facility] Immature Granulocytes Relative 0.2 % LAB HEMETOLOGY METHOD 03/16/2024 6:31 AM [facility] Neutrophils Absolute 6.22 1.50 - 7.00 K/mcL LAB HEMETOLOGY METHOD 03/16/2024 6:31 AM [facility] Lymphocytes Absolute 1.14 1.00 - 5.00 K/mcL LAB HEMETOLOGY METHOD 03/16/2024 6:31 AM [facility] Monocytes Absolute 0.62 0.20 - 1.00 K/mcL LAB HEMETOLOGY METHOD 03/16/2024 6:31 AM [facility] Eosinophils Absolute 0.15 0.00 - 0.50 K/mcL LAB HEMETOLOGY METHOD 03/16/2024 6:31 AM [facility] Basophils Absolute 0.06 0.00 - 0.20 K/mcL LAB HEMETOLOGY METHOD 03/16/2024 6:31 AM [facility] Immature Granulocytes Absolute 0.02 0.00 - 0.03 K/mcL LAB HEMETOLOGY METHOD 03/16/2024 6:31 AM [facility] Blood Venous blood specimen / Unknown Venipuncture / Unknown 03/16/2024 6:10 AM EST 03/16/2024 6:16 AM EST [facility] LAB BLOOD ORDERABLES Final Resul t [facility] [address] [place] [address], [place] [phone] * Magnesium (03/16/2024 6:10 AM EST) Magnesium 1.9 1.9 - 2.6 mg/dL LAB CHEMISTRY METHOD 03/16/2024 6:48 AM EST [facility] Blood Venous blood specimen / Unknown Venipuncture / Unknown 03/16/2024 6:10 AM EST 03/16/2024 6:16 AM EST [facility] LAB BLOOD ORDERABLES Final Resul t Performing Organization Address [facility] Co de Phone Number [facility] [address] [place] [address], [place] [phone] * ECG 12 lead (03/16/2024 5:55 AM EST) Ventricular Rate ECG 77 BPM G[facility] Atrial Rate 77 BPM G[facility] P-R Interval 156 ms GEMUSE QRS Duration 138 ms GEMUSE Q-T Interval 452 ms GEMUSE QTc 511 ms GEMUSE P Wave [place] 57 degrees GEMUSE R [place] 22 degrees GEMUSE T [place] 52 degrees GEMUSE ECG Interpretation Atrial-sensed ventricular-pa olu rhythm Abnormal ECG When compared with ECG of 16-MAR-2023 16:01, Electronic ventricular pacemaker has replaced Sinus rhythm Confirmed by ANA MARIA MOYER ([id number]) on 03/16/2024 2:31:01 PM GEM[facility] 03/16/2024 5:55 AM EST 03/16/2024 2:31 PM EST [facility] ECG ORDERABLES Final Result Performing Organization Address City/[facility]/ZIP Co de Phone Number GEMUSE * [...] Most Recently Relevant to Health Maintenance Insurance [place] [address] Care Teams Button Breaker Relationship Specialty Start Date End Date Nery Holly MD [address] [place] [address] PCP - General Internal Medicine 02/22/24
--- OUTSIDE RECORDS SUMMARY | 2024-06-14 13:55 | XMS_ITS | Encounter Summary ---
Author Organization [facility] Address [address] [place] [address] Care Team Providers Care Seamless Tube Mill Operator Name Role Phone Nery Holly MD Primary Care Prov ider Reason for Visit * Reason Onset Date Comments follow up appt 06/12/2024 LVM for patient Encounter Details Date Type Department Care Team ([facility] Contact Info) Description 06/12/2024 Telephone Thoracic Surgery - [place] 299 [facility] [address] [place] [phone] Ivanna Last [place] 299 [facility], [address] [address] follow up appt (LVM for patient) Social [...] for your loved ones. For example, child support officer or elderly care for an older adult? [...] AM EST LVM for patient through a radarman, that she needs to rescheduled her appt with Yumiko ANGEL to go over results of her Ct-Scan. documented in this encounter Plan of Treatment Upcoming Encounters Date Type Department Care Team (Late st Contact Info) Description 08/02/2024 9:00 AM EDT Office Visit Adult Medicine [address] [phone] Nery Holly MD [address] [place] [address] 09/22/2024 1:30 PM EDT Appointment Radiology Department - [address] [phone] 02/26/2025 9:00 AM EST Office Visit [facility] Hematology Oncology [address] [place] [phone] Darrell Randolph MD [address] [place] [address] documented as of this encounter Visit Diagnoses Not on filedocumented in this encounter Additional Health Concerns Assessment Noted Time PHQ-9 Depression Total Score: 0 04/11/20 9:58 AM EST documented as of this encounter Care Teams Seamless Tube Mill Operator Relationship Specialty Start Date End Date Nery Holly MD [address] [place] [phone] PCP - General Internal Medicine 02/22/24 documented as of this encounter
--- OUTSIDE RECORDS SUMMARY | 2024-06-14 13:55 | XMS_ITS | Encounter Summary ---
Author Organization [facility] Address [address] [place] [address] Care Team Providers Care Dancer Or Choreographer Name Role Phone Nery Holly MD Primary Care Prov ider Reason for Referral * Imaging (Routine) - Pending Review Specialty Diagnoses / Procedures Referred By Contac t Referred To Contact Radiology Diagnoses Abnormal CT of spine Procedures MR Cervical Spine wo and w Contrast Nery Holly MD [address] [place] [address] Phone: tel: fax: [address] [address] Phone: tel: Referral ID Status Reason Start Date Expiration Date V isits Requested Visits Authorized [id number] Pending Review 05/08/2024 05/08/2025 1 1 Reason for Visit * Imaging (Routine) - Pending Review Specialty Diagnoses / Procedures Referred By Contac t Referred To Contact Radiology Diagnoses Abnormal CT of spine Procedures MR Cervical Spine wo and w Contrast Nery Holly MD [address] [place] [address] Phone: tel: fax: [address] [phone] Phone: tel: Referral ID Status Reason Start Date Expiration Date V isits Requested Visits Authorized [id number] Pending Review 05/08/2024 05/08/2025 1 1 Encounter Details Date Type Department Care Team (Latest Contact Info) Description 05/30/2024 9:57 AM EST - 05/30/2024 11:59 PM EST Hospital Encounter [facility] MRI [address] [place] [address] of spine Discharge [...] care for your loved ones. For example, school child care attendant or elderly care for an older adult? [...] 9:00 AM EDT Office Visit Adult Medicine [address] [phone] Nery Holly MD [address] [place] [address] 09/22/2024 1:30 PM EDT Appointment Radiology Department - [address] [phone] 02/26/2025 9:00 AM EST Office Visit [facility] Hematology Oncology [address] [place] [phone] Darrell Randolph MD [address] [place] [address] documented as of this encounter Procedures Procedure [...] PRINCESS VEGA Reviewed and Electronically Signed By: RPINCESS VEGA Signed Date: 05/30/2024 11:28 ET Workstation ID: [id number] Transcribed By: Self Edit Transcribed Date: 05/30/2024 [...] enhancing intramedullary lesion at the level of C8conti may reflect sequelae of remote neurocysticercosis or a benigncavernous malformation, unchanged dating back to 2021. -------- FINAL REPORT -------- Dictated By: PRINCESS VEGA Dictated Date: 05/30/2024 11:15 ET Assigned Physician: PRINCESS VEGA Reviewed and Electronically Signed By: PRINCESS VEGA Signed Date: 05/30/2024 11:28 ET Workstation ID: [id number] Transcribed By: Self Edit Transcribed Date: 05/30/2024 [...] documented as of this encounter Care Teams Dancer Or Choreographer Relationship Specialty Start Date End Date Nery Holly MD [address] [place] [phone] PCP - General Internal Medicine 02/22/24 documented as of this encounter
--- OUTSIDE RECORDS SUMMARY | 2024-06-14 13:55 | XMS_ITS | Encounter Summary ---
Author Organization [facility] Address [address] [place] [address] Care Team Providers Care Practice Nurse Name Role Phone María Cruz MD Primary Care Provider Mary wick Encounter Details Date Type Department Care Team (Late st Contact Info) Description 01/27/2024 9:30 AM EDT Hospital Encounter TH HISTORIC ENCOUNTERS EASTERN CONVERSION ONLY Darrell Randolph MD [address] [place] [phone] Social History Tobacco Use Types Packs/Day Years [...] your loved ones. For example, child development associate teacher or elderly care for an older [...] 9:00 AM EDT Office Visit Adult Medicine [facility] - [address] [phone] Nery Holly MD [address] [place] [address] 09/22/2024 1:30 PM EDT Appointment Radiology Department - [address] [phone] 02/26/2025 9:00 AM EST Office Visit [facility] Hematology Oncology [address] [place] [phone] Darrell Randolph MD [address] [place] [phone] documented as of this encounter Visit Diagnoses Not on filedocumented in this encounter Care Teams Practice Nurse Relationship Specialty Start Date End Date María Cruz MD Need Updated Address PCP - General 01/27/24 02/21/24 documented as of this encounter
--- OUTSIDE RECORDS SUMMARY | 2024-06-14 13:55 | XMS_ITS | Clinical Summary ---
Author Organization [facility] Address [address] [place] [address] Care Team Providers Care Public Events Facilities Rental Manager Name Role Phone María Cruz MD Primary Care Provider [phone] Allergies Active Allergy Reactions Criticality Noted Date [...] cancer 11/20/2014 Overview: Left PET scan done [facility] 11/15/14 CT 07/11/2020 enlarging : Wedge resection converted to Left lower Lobectomy 10/29/2020 w/ pos intraoperative DX HTN (hypertension) 10/27/2013 Mastalgia 02/20/2013 Diverticulitis 02/07/2013 Overview: 01/2013 [facility] Lumbar facet arthropathy 01/21/2011 Hypothyroidism 09/02/2010 [...] age to complete this topic Care Teams Public Events Facilities Rental Manager Relationship Specialty Start Date End Date María Cruz MD PCP - General Internal Medicine 11/13/20
[2024-06-14 18:35] LABS: MANUAL DIFF FLAG NO
[2024-06-14 18:48] LABS: Basophils Absolute Auto 0.1 X10*3/uL (0.0-0.2); Eosinophils Absolute Auto 0.1 X10*3/uL (0.0-0.4); Eosinophils Percent Auto 1.8 % (0-4); Hematocrit 37.3 % (37.0-47.0); Hemoglobin 12.7 g/dl (12.0-16.0); Imm Gran Abs Auto 0.02 X10*3/uL (0.00-0.03); Imm Gran Pct Auto 0.3 % (0.0-0.4); Lymphocytes Absolute Auto 1.3 X10*3/uL (1.2-4.9); Lymphocytes Percent Auto 21.8 % (20-40); Mean Corpuscular Volume 88.2 fL (80.0-98.0); Mean Platelet Volume 9.6 fL (9.4-12.3); Monocytes Absolute Auto 0.5 X10*3/uL (0.1-1.2); Monocytes Percent Auto 7.5 % (2-11); Neutrophils Absolute Auto 4.1 x10*3/uL (2.0-8.3); Neutrophils Percent Auto 67.6 % (45-73); Platelet Count 297 X10*3/uL (160-400); Red Blood Count 4.23 X10*6/uL (4.20-5.50); Red Cell Distribution Width 13.9 % (11.0-16.0); White Blood Count 6.1 X10*3/uL (4.8-10.8)
[2024-06-14 19:01] LABS: Alanine Aminotransferase 27 U/L (0-31); Albumin Level 4.2 g/dL (3.5-5.0); Alkaline Phosphatase 83 U/L (39-117); Anion Gap 11 (12-20); Aspartate Amino Transferase 22 U/L (5-31); Bilirubin Total 0.3 mg/dL (0.0-1.0); Blood Urea Nitrogen 18 mg/dL (9-16); Calcium 9.4 mg/dL (8.4-10.2); Carbon Dioxide 26 mmol/L (22-29); Chloride 107 mmol/L (96-108); Estimated Glomerular Filt Rate > 60; Glucose Random 81 mg/dL (60-115); Potassium 3.9 mmol/L (3.3-5.1); Sodium 140 mmol/L (135-145); Total Protein 7.2 g/dL (6.5-8.0)
[2024-06-14 19:03] LABS: Carbamazepine Tegretol 6.4 mcg/mL (5.0-12.0)
== END 2024-06-14 09:49 | disposition home or self-care (01) ==
LOC: HO.HKASLDS 09:48
PROVIDERS: Visit Provider Nurse Practitioner Family
DX: M79.2 Neuralgia and neuritis, unspecified (principal); I10 Essential (primary) hypertension; E78.5 Hyperlipidemia, unspecified; G44.009 Cluster headache syndrome, unspecified, not intractable; G40.909 Epilepsy, unspecified, not intractable, without status epilepticus
CPT/HCPCS: 36415; 80053; 80156; 85025

== ENCOUNTER 2024-07-03 08:50 | Outpatient (AMB) | payer OTHER, SELFPAY ==
--- NOTE | 2024-07-03 09:05 | A.OFFVIS_ITS ---
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, unspecified eye Assistant Public Defender Required: Yes Assistant Public Defender Services: Assistant Public Defender Present Assistant Public Defender Name: Pamela [phone] Allergies Penicillins Allergy (Verified 07/03/24 09:09) Rash Medication List - Last Reconciled 07/03/24 by Cyndy Bhakta LPN acetaminophen ER 650 mg PO TID albuterol sulfate 90 mcg/actuation (Ventolin HFA) inhalation amlodipine 5 mg PO DAILY atorvastatin 80 mg PO DAILY benzonatate 100 mg PO TID carbamazepine ER 200 mg (2 x 100 mg) PO BID 30 days diclofenac potassium 50 mg PO BID PRN 30 days MDD max 15 days per month ezetimibe mg PO famotidine 20 mg PO DAILY hydrochlorothiazide 25 mg PO DAILY levothyroxine 125 mcg PO DAILY losartan 50 mg PO DAILY metoprolol succinate ER 200 mg PO DAILY omeprazole 20 mg PO DAILY oxybutynin chloride ER 5 mg PO DAILY Oxygen Home Use 10-15 lpm, at onset of headache, via non-rebreather mask x's up to 20 minutes per headache attack. M-tanks and E-tanks. 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 The pain began one year prior, affecting the right periorbital region and right roman catholic. It is characterized as an aching and stabbing sensation, peaking at 10/10 in severity. The condition worsens at night, preventing restful sleep, but remains at a lower intensity of 4 to 5/10 during the day. Despite the intensity, she maintains a full-time work schedule. Treatment with carbamazepine 100 mg extended release has been initiated. Oxygen therapy has provided limited symptomatic relief. She was referred by neurology for further intervention through nerve block injections. Pain Description - Onset: One year ago - Quality and Character: Aching, stabbing sensation - Primary Location: Right periorbital area, right roman catholic - Severity: 10/10 at night, 4-5/10 during the day - Timing: Worse at night - Exacerbating Factors: Nighttime - Relieving Factors: Carbamazepine has been marginally effective; minimal relief from oxygen therapy - Interference: Sleep interference and daily activities, despite maintaining full-time work Physical Exam - Appears afebrile. - Alert and oriented. - Mood and affect appropriate. - Follows and participates in conversation appropriately. - Respiratory effort is unlabored. - Able to transition from sit to stand unassisted. - Ambulates with bilaterally normal heel strike and toe off. - Able to stand and walk on toes and heels. Pain Management - Affect: Significant interference with sleep and daily activities - Analgesia: Currently on carbamazepine 100 mg extended release; pain intensity varies (10/10 at night, 4-5/10 during the day) - Adverse Effects: None explicitly discussed - Activities of Daily Living: Pain is impacting sleep; patient continues full- time work - Aberrant Drug Related Behaviors: None reported Procedure - Right supraribital and supratrochlear nerve blocks were administered. - Informed consent was obtained. - The procedure involved the use of a 27-gauge needle to inject 0.5% ropivacaine (0.5 mL) at the specified nerve sites based on landmark techniques. - The patient tolerated the procedure well and was discharged in stable condition. [facility] Surgical History History of cardiac defibrillator placement H/O hernia repair Hx of tonsillectomy Hx of appendectomy H/O: hysterectomy Family History Mother Hyperlipidemia Sister Hyperlipidemia Social History Alcohol intake: never Patient Tobacco Use Status: Never used Tobacco Physical Exam Vital Signs: Last Vital Signs Pulse 101 H 07/03/24 09:08 Resp 16 07/03/24 09:08 BP 131/85 07/03/24 09:08 Pulse Ox 95 07/03/24 09:08 Oxygen Delivery Method Room Air 07/03/24 09:08 BMI result Body Mass Index 39.8 Assessment & Plan Assessment & Plan (1) Cluster headache: Code(s): G44.009 - Cluster headache syndrome, unspecified, not intractable Category: Medical Qualifiers: Headache chronicity pattern: unspecified pattern Intractability: not intractable Qualified Code(s): G44.009 - Cluster headache syndrome, unspecified, not intractable (2) Supraorbital neuralgia: Comment: Right Code(s): G50.0 - Trigeminal neuralgia Category: Medical Plan Plan We administered right supraribital and supratrochlear nerve blocks to manage chronic periorbital pain. Informed consent was obtained, and the procedure proceeded without complications. The patient expressed understanding that repeating the injection series might be necessary based on the relief diagnostics today. Follow-up is scheduled for one month to assess efficacy and determine the continuation of this management approach. Patient was informed and verbally consented to the use of an ambient scribe for clinic note documentation during this visit. Discussion Notes I discussed with the patient the chronic nature of her right-sided periorbital pain and the rationale for using nerve block injections as a diagnostic and therapeutic intervention. We reviewed the potential risks and benefits of the nerve block procedure, and the patient consented to proceed. I explained the necessity for ongoing treatment evaluations and the possibility of repeating the procedures for sustained relief if successful. The patient expressed gratitude and an understanding of the follow-up care plan, which includes reassessment in one month. Patient Instructions - Monitor pain levels and maintain a log of any changes in pain intensity. - Adhere to prescribed medication regimen for carbamazepine 100 mg extended release. - Follow up in one month for evaluation of relief from nerve blocks. - Contact medical care if experiencing new or worsening symptoms. Coding Level of Care Code Est Pt Level 3 (61782) Diagnoses Cluster headache, not intractable, unspecified chronicity pattern G44.009 Headache chronicity pattern: unspecified pattern Intractability: not intractable Supraorbital neuralgia G50.0
[2024-07-03 09:08] VITALS: BP 131/85; PULSE 101; RESP 16; O2SAT 95; BMI 39.8
== END 2024-07-03 10:02 | disposition home or self-care (01) ==
LOC: HO.PMC 08:50
PROVIDERS: Referring Provider Nurse Practitioner Family; Visit Provider Internal Medicine
DX: G50.0 Trigeminal neuralgia (principal); G44.009 Cluster headache syndrome, unspecified, not intractable
CPT/HCPCS: 99213

== ENCOUNTER → 2024-07-03 08:50 | Outpatient (BNVA) | payer OTHER, SELFPAY | PROVIDERS: Referring Provider Nurse Practitioner Family; Visit Provider Internal Medicine | DX: G44.009 Cluster headache syndrome, unspecified, not intractable (principal); G50.0 Trigeminal neuralgia | CPT/HCPCS: 99212 ==

== ENCOUNTER 2024-07-31 08:38 | Outpatient (AMB) | payer OTHER, SELFPAY ==
--- NOTE | 2024-07-31 08:45 | A.OFFVIS_ITS ---
Vital Signs 07/31/24 08:46 Height 5 ft 8 in Weight 244 lb BMI 37.1 BP 132/83 Blood Pressure Location Lt brachial Position Sitting Respiration 16 Pulse 88 Pulse Source Pulse Oximeter Pulse Oximetry (%) 98 Oxygen Delivery Method Room Air Intake Visit Reasons: 1 month FU Wood Hacker Required: Yes Wood Hacker Services: Wood Hacker Offered & Declined Wood Hacker Name: Prefers to translate Artificial Breast Fabricator: Artificial Breast Fabricator Present Accompanied by: Farrukh Brandt Allergies Penicillins Allergy (Verified 07/31/24 08:47) Rash Medication List - Last Reconciled 07/31/24 by Cyndy Bhakta LPN acetaminophen ER 650 mg PO TID albuterol sulfate 90 mcg/actuation (Ventolin HFA) inhalation amlodipine 5 mg PO DAILY atorvastatin 80 mg PO DAILY benzonatate 100 mg PO TID carbamazepine ER 200 mg (2 x 100 mg) PO BID 30 days diclofenac potassium 50 mg PO BID PRN 30 days MDD max 15 days per month ezetimibe mg PO famotidine 20 mg PO DAILY hydrochlorothiazide 25 mg PO DAILY levothyroxine 125 mcg PO DAILY losartan 50 mg PO DAILY metoprolol succinate ER 200 mg PO DAILY omeprazole 20 mg PO DAILY oxybutynin chloride ER 5 mg PO DAILY Oxygen Home Use 10-15 lpm, at onset of headache, via non-rebreather mask x's up to 20 minutes per headache attack. M-tanks and E-tanks. sacubitril-valsartan 49-51 mg (Entresto) 1 tab PO BID sumatriptan succinate mg PO HPI HPI 1 month FU: Details: History of Present Illness The patient is a 64-year-old female presenting with chronic headaches and low back pain. One month ago, she received a superorbital intraoperative nerve block, resulting in more than 80% improvement in her headache pain, with minor residual discomfort remaining. Due to the significant improvement, another injection is not being pursued at this time. The patient also reports long-standing low back pain, which remains mild in severity at a 2 out of 10 but is resistant to physical therapy. The pain sometimes radiates down her leg, and she experiences stomach upset with ibuprofen, so she relies on acetaminophen. No prior MRI has been conducted on her lumbar spine. Given the non-response to previous conservative management, I ordered an MRI of the lumbar spine and discussed the potential for insurance denial requiring further physical therapy. The patient's history of having an intracardiac defibrillator was acknowledged and noted for consideration with any imaging studies. Pain Description - Onset and timing: Chronic low back pain, long-standing in duration. - Quality and character: Radiating down leg at times. - Primary location: Low back. - Areas of radiation: Radiates to leg. - Exacerbating factors: Non-responsive to physical therapy. - Relieving factors: Acetaminophen; avoids ibuprofen due to abdominal discomfort. - Interference with activities: Pain level at 2 out of 10, manageable but persistent. Physical Exam - Appears afebrile. - Alert and oriented. - Mood and affect appropriate. - Follows and participates in conversation appropriately. - Respiratory effort is unlabored. - Able to transition from sit to stand unassisted. - Ambulates with bilaterally normal heel strike and toe off. - Able to stand and walk on toes and heels. Pain Management - Affect: Reports improvement in mood and discomfort after headache treatment. - Analgesia: Current pain level reported as 2 out of 10 for low back pain. Goal pain level to maintain or reduce intensive discomfort. - Adverse Effects: Stomach upset prevents use of ibuprofen; tolerates acetaminophen. - Activities of Daily Living: Manages daily activities despite low back pain, no significant interference reported. - Aberrant Drug Related Behaviors: No indications of medication misuse reported. [facility] Surgical History History of cardiac defibrillator placement H/O hernia repair Hx of tonsillectomy Hx of appendectomy H/O: hysterectomy Family History Mother Hyperlipidemia Sister Hyperlipidemia Social History Alcohol intake: never Patient Tobacco Use Status: Never used Tobacco Physical Exam Vital Signs: Last Vital Signs Pulse 88 07/31/24 08:46 Resp 16 07/31/24 08:46 BP 132/83 07/31/24 08:46 Pulse Ox 98 07/31/24 08:46 Oxygen Delivery Method Room Air 07/31/24 08:46 BMI result Body Mass Index 37.1 Assessment & Plan Assessment & Plan (1) Lumbago with sciatica: Code(s): M54.40 - Lumbago with sciatica, unspecified side Category: Medical (2) Supraorbital neuralgia: Comment: Right Code(s): G50.0 - Trigeminal neuralgia Category: Medical Plan Plan Chronic headache management includes potential for repeat superorbital nerve block contingent on symptom recurrence as current status post-procedure shows significant improvement. An MRI of the lumbar spine has been ordered to explore underlying causes of the patient's chronic low back pain, with consideration given to a potential insurance denial for lack of recent physical therapy, which may necessitate resuming therapy. The patient will continue acetaminophen for low back pain with avoidance of ibuprofen. The patient's existing intracardiac defibrillator and its compatibility with MRI were duly noted. Patient was informed and verbally consented to the use of an ambient scribe for clinic note documentation during this visit. Discussion Notes During the visit, I reviewed the patient's response to prior superorbital nerve block treatment, noting an 80% improvement in headache symptoms without immediate need for additional intervention. We discussed the lack of efficacy of prior physical therapy on her low back pain and the rationale behind obtaining an MRI to better understand the underlying etiology. I explained the possibility of insurance requiring additional physical therapy sessions prior to approving imaging and that the presence of her intracardiac defibrillator should not pose a barrier to MRI as no prior incidents have occurred. Follow-up care involves reassessing the headache pain and implementing additional interventions if needed, while the low back pain will be further addressed upon receipt of MRI findings. Patient Instructions - Continue using acetaminophen as needed for low back pain. - Avoid ibuprofen due to potential for stomach irritation. - Schedule and complete the lumbar spine MRI. - Resume physical therapy if required by insurance for MRI approval. - Return for follow-up after MRI results to discuss further management options. Orders: Orders MR lumbar spine wo con Today M54.40 - Lumbago with sciatica, unspecified side Coding Level of Care Code Est Pt Level 4 (54488) Diagnoses Lumbago with sciatica M54.40 Supraorbital neuralgia G50.0
[2024-07-31 08:46] VITALS: BP 132/83; PULSE 88; RESP 16; O2SAT 98; BMI 37.1
--- OUTSIDE RECORDS SUMMARY | 2024-07-31 09:09 | XMS_ITS | Encounter Summary ---
Author Organization [facility] Address [address] [place] [address] Care Team Providers Care Shift Superintendent Name Role Phone María Cruz MD Primary Care Provider Mary wick Encounter Details Date Type Department Care Team (Late st Contact Info) Description 01/27/2024 9:30 AM EDT Hospital Encounter TH HISTORIC ENCOUNTERS [facility]AST[facility] CONVERSION ONLY Darrell Randolph MD [address] [place] [id number] Social History Tobacco Use Types Packs/Day Years [...] your loved ones. For example, child care lead teacher or elderly care for an older [...] 9:00 AM EDT Office Visit Adult Medicine [facility] - [address] [phone] Nery Holly MD [address] [place] [phone] 09/22/2024 1:30 PM EDT Appointment Radiology Department - [address] [phone] 02/26/2025 9:00 AM EST Office Visit [facility] Hematology Oncology [address] [place] [phone] Darrell Randolph MD [address] [place] [phone] documented as of this encounter Visit Diagnoses Not on filedocumented in this encounter Care Teams Shift Superintendent Relationship Specialty Start Date End Date María Cruz MD Need Updated Address PCP - General 01/27/24 02/21/24 documented as of this encounter
--- OUTSIDE RECORDS SUMMARY | 2024-07-31 09:09 | XMS_ITS | Encounter Summary ---
Author Organization [facility] Address [address] [place] [address] Care Team Providers Care Supervisor Sample Preparation Name Role Phone María Cruz MD Primary Care Provider Mary wick Encounter Details Date Type Department Care Team (Late st Contact Info) Description 01/27/2024 8:40 AM EDT Hospital Encounter TH HISTORIC ENCOUNTERS EASTERN CONVERSION ONLY Darrell Randolph MD [address] [place] [id number] Social History Tobacco Use Types Packs/Day Years [...] for your loved ones. For example, child and adolescent therapist or elderly care for an older adult? [...] is a 63 y.o. female. HPI: 63-year-old Chadian-speaking female (history and physical done with the [...] respiratory symptom and have work-up by a web production assistant including CT scan that showed left lung [...] lung (HCC) ADENOCARCINOMA OF LEFT LUNG 63-year-old Chadian-speaking female, history and physical done with the [...] 9:00 AM EDT Office Visit Adult Medicine [address] [phone] Nery Holly MD [address] [place] [address] 09/22/2024 1:30 PM EDT Appointment Radiology Department - [address] [phone] 02/26/2025 9:00 AM EST Office Visit [facility] Hematology Oncology [address] [place] [phone] Darrell Randolph MD [address] [place] [address] documented as of this encounter Visit Diagnoses Not on filedocumented in this encounter Care Teams Supervisor Sample Preparation Relationship Specialty Start Date End Date María Cruz MD Need Updated Address PCP - General 01/27/24 02/21/24 documented as of this encounter
--- OUTSIDE RECORDS SUMMARY | 2024-07-31 09:09 | XMS_ITS | Clinical Summary ---
[facility] Organization [facility] Address [address] [place] [address] Care Team Providers Care Specimen Collector Name Role Phone María Cruz MD Primary Care Provider [phone] Allergies Active Allergy Reactions Criticality Noted Date [...] cancer 11/20/2014 Overview: Left PET scan done [facility] 11/15/14 CT 07/11/2020 enlarging : Wedge resection converted to Left lower Lobectomy 10/29/2020 w/ pos intraoperative DX HTN (hypertension) 10/27/2013 Mastalgia 02/20/2013 Diverticulitis 02/07/2013 Overview: 01/2013 [facility] Lumbar facet arthropathy 01/21/2011 Hypothyroidism 09/02/2010 [...] age to complete this topic Care Teams Specimen Collector Relationship Specialty Start Date End Date María Cruz MD PCP - General Internal Medicine 11/13/20
--- OUTSIDE RECORDS SUMMARY | 2024-07-31 09:10 | XMS_ITS | Clinical Summary ---
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 Continue albuterol prn. Will continue to monitor. Pneumonitis 08/27/2017 Lung cancer ([facility] [place], [facility] V28) 5 Overview (01/07/2024): Left PET scan done [facility] 11/15/14 CT 07/11/2020 enlarging : [...] for excision. Diverticulitis 02/07/2013 Overview (01/07/2024): 01/2013 [facility] Lumbar facet arthropathy 01/21/2011 Hypothyroidism 09/02/2010 Assessment & Plan (05/05/2024 5:42 PM EST): Recent TSH 17.5. Will increase levothyroxine to 150mcg. Will recheck levels in 6 weeks. Orders: Thyroid stimulating hormone; Future Encounters Date Type Department Care Team Description 06/12/2024 Telephone Thoracic Surgery - [address] [place] [address] Ivanna Last PA follow up appt (LVM for patient) 06/08/2024 Telephone Thoracic Surgery [facility] [address] [place] [phone] Vanessa Inman i, [place] 05/30/2024 9:57 AM EST - 05/30/2024 11:59 PM EST Hospital Encounter [facility] MRI [address] [place] [phone] of spine Discharge Disposition: Home or Self Care 05/08/2024 Telephone Adult Medicine [facility] [address] [place] [address] Nery Friend MD 05/04/2024 11:00 AM EST Office Visit Orthopedic Surgery [facility] [address] [facility] [address] [place] [phone] Yajaira Kunz NP Primary osteoarthritis of right knee (Primary Dx); Contusion of right knee, subsequent encounter; History of recent fall 05/03/2024 10:00 AM EST Office Visit Adult Medicine [facility] [address] [place] [address] Nery Friend MD Primary hypertension (Primary Dx); Mixed hyperlipidemia; Hypothyroidism, unspecified type; Asthma-COPD overlap syndrome (CMS/HCC V24, CMS/HCC V28) from Last 3 Months Surgical History Surgery [...] LLL lobectomy BREAST SURGERY 04/19/2016 Right PROCEDURE: CA UNLISTED PROCEDURE BREAST; COMMENT: neg Medical History Medical History Date Comments Essential hypertension, benign D X:Essential hypertension, benign Hypothyroidism DX:Hypothyroidis m Hyperlipidemia DX:Hyperlipidemi a Diverticulitis 02/07/2013 DX:Diverticuliti s; COMMENT: 01/2013 [facility] Sebaceous cyst 02/20/2013 DX:Sebaceous cys t Mastalgia 02/20/2013 DX:Mastalgia Moderate persistent asthma w ithout complication 04/08/2016 DX:Moderate persistent asthm a without complication Lumbar facet arthropathy 01/21/2011 DX:Lumb ar facet arthropathy Venous insufficiency 02/23/2018 DX:Venous i nsufficiency DJD (degenerative joint dise ase) of knee 09/19/2020 DX:DJD (degenerative joint d isease) of knee Lung cancer ([facility] V24, [facility] V28) 11/20/2014 DX:Lung cancer (HCC); COMMEN T: Left PET scan done [facility] 11/15/14 CT 07/11/2020 enlarging : [...] your loved ones. For example, child and youth program assistant or elderly care for an older [...] EDT Office Visit Adult Medicine [facility] - [address] [phone] Nery Holly MD [address] [place], [place] 09/22/2024 1:30 PM EDT Appointment Radiology Department - [address] [phone] 02/26/2025 9:00 AM EST Office Visit [facility] Hematology Oncology [address] [place] [phone] Darrell Randolph MD [address] [place] [address] Health Maintenance Due Date Last Done Comments Zoster Vaccines (1 of 2) 1980 Pneumococcal Vaccine: 50+ Years (2 of 2 - PCV) 04/30/2017 04/30/2016 Pneumococcal Vaccine: Pediatrics (0 to 5 Years) and At-Risk Patients (6 to 64 Years) (2 of 2 - PCV) 04/30/2017 04/30/2016 RSV Immunization Adult Patients (1 - Risk 60-74 years 1-dose series) 2021 Colorectal Cancer Screening: Colonoscopy 03/28/2022 HIV Screening 03/28/2022 Hepatitis C Screening 03/28/2022 COVID-19 Vaccine ( season) 2023 06/09/2022, 06/14/2021, 10/09/2020, Additional history exists Influenza Vaccine (Season Ended) 2024 12/24/2022, 03/05/2021 Hypertension/CHF/CAD Annual BMP Blood Test 03/22/2025 03/22/2024, [...] age to complete this topic Meningococcal B Vaccine Aged Out No l onger eligible based on patient's age to complete [...] 11:[address] of spine CA ARTHROCENTESIS/ASPI RATION/INJECTION MAJOR JOINT/BURSA W/O U/S GUIDANCE Routine 05/04/2024 11:00 AM EST Primary osteoarthritis of right knee BASIC METABOLIC PANEL Routine 03/22/2024 1:01 PM EST Hypothyroidism, adult Hematuria syndrome Essential hypertension, malignant LIPID PANEL WITH REFLEX TO DIRECT LDL Routine 03/22/2024 1:01 PM EST Hypothyroidism, adult Hematuria syndrome Essential hypertension, malignant DIAGNOSTIC MAMMOGRAPHY INCLUDING CAD BILATERAL Routine 09/10/2023 [...] -------- FINAL REPORT -------- Dictated By: AMBROCIO VEGA Dictated Date: 05/30/2024 11:15 ET Assigned Physician: AMBROCIO VEGA Reviewed and Electronically Signed By: AMBROCIO VEGA Signed Date: 05/30/2024 11:28 ET Workstation ID: [id number] Transcribed By: Self Edit Transcribed Date: 05/30/2024 [...] ??No spinal canal stenosis. Procedure Note Ambrocio Vega MD - 05/30/2024 PROCEDURE: Cervical spine [...] enhancing intramedullary lesion at the level of [id number] may reflect sequelae of remote neurocysticercosis or a benigncavernous malformation, unchanged dating back to 2021. -------- FINAL REPORT -------- Dictated By: AMBROCIO VEGA Dictated Date: 05/30/2024 11:15 ET Assigned Physician: AMBROCIO VEGA Reviewed and Electronically Signed By: AMBROCIO VEGA Signed Date: 05/30/2024 11:28 ET Workstation ID: [id number] Transcribed By: Self Edit Transcribed Date: 05/30/2024 11:15 ET us Nrey Holly MD IMG MRI PROCEDURES Final Result * CA ARTHROCENTESIS/ASPIRATION/INJECTION MAJOR JOINT/BURSA W/O U/S GUIDANCE (05/04/2024 [...] ?? Verbal ??Pre-procedure timeout performed: yes ?? us Yajaira Kunz [facility]IC/BEDSIDE ORDER SHADI Final Result * (ABNORMAL) Lipid panel with reflex to direct LDL (03/22/2024 1:01 PM EST) Cholesterol 308(H) 0 - 200 mg/dL LAB CHEMISTRY METHOD 03/22/2024 4:43 PM EST [facility] Triglycerides 447(H) 0 - 150 mg/dL LAB CHEMISTRY METHOD 03/22/2024 4:43 PM EST [facility] HDL 46 >=40 mg/dL LAB CHEMISTRY METHOD 03/22/2024 4:43 PM EST [facility] LDL Calculated 173(H) 0 - 100 mg/dL LAB CHEMISTRY METHOD 03/22/2024 4:43 PM EST [facility] Comment:Unable to calculate when triglycerides >400 mg/dL. VLDL Cholesterol Daniel 89.4 mg/dL LAB CHEMISTRY METHOD 03/22/2024 4:43 PM [facility] Comment:Unable to calculate when triglycerides >400 mg/dL. Non HDL Chol. (LDL+VLDL) 262(H) <145 mg/dL LAB CHEMISTRY METHOD 03/22/2024 4:43 PM [facility] Comment:Unable to calculate when triglycerides >400 mg/dL. Chol/HDL Ratio 6.7(H) 0.0 - 4.4 LAB CHEMISTRY METHOD 03/22/2024 4:43 PM [facility] Blood Venous blood specimen / Unknown Venipuncture / Unknown 03/22/2024 1:01 PM EST 03/22/2024 1:01 PM EST us Nery Holly MD LAB BLOOD ORDERABL ES Final Result [facility] [address] [place] [address], [place] [phone] * (ABNORMAL) Basic metabolic panel (03/22/2024 1:01 PM EST) Sodium 143 133 - 145 mmol/L LAB CHEMISTRY METHOD 03/22/2024 4:39 PM [facility] Potassium 3.8 3.5 - 5.5 mmol/L LAB CHEMISTRY METHOD 03/22/2024 4:39 PM [facility] Chloride 109 96 - 110 mmol/L LAB CHEMISTRY METHOD 03/22/2024 4:39 PM [facility] CO2 27 21 - 32 mmol/L LAB CHEMISTRY METHOD 03/22/2024 4:39 PM [facility] Anion Gap 7 3 - 11 LAB CHEMISTRY METHOD 03/22/2024 4:39 PM [facility] Glucose 107(H) 70 - 100 mg/dL LAB CHEMISTRY METHOD 03/22/2024 4:39 PM EST [facility] BUN 22 5 - 25 mg/dL LAB CHEMISTRY METHOD 03/22/2024 4:39 PM [facility] Creatinine 0.83 0.50 - 1.10 mg/dL LAB CHEMISTRY METHOD 03/22/2024 4:39 PM [facility] eGFR 79 >=60 mL/min/1. 73m2 LAB CHEMISTRY METHOD 03/22/2024 4:39 PM [facility] Comment:Calculation based on the??Chronic Kidney Disease Epidemiology Collaboration (CKD-EPI) equation refit??without adjustment for race. BUN/Creatinine Ratio 26.5 LAB CHEMISTRY METHOD 03/22/2024 4:39 PM [facility] Calcium 9.2 8.5 - 10.5 mg/dL LAB CHEMISTRY METHOD 03/22/2024 4:39 PM [facility] Blood Venous blood specimen / Unknown Venipuncture / Unknown 03/22/2024 1:01 PM EST 03/22/2024 1:01 PM EST us Nery Holly MD LAB BLOOD ORDERABL ES Final Result [facility] [address] [place] [address], * DIAGNOSTIC MAMMOGRAPHY INCLUDING CAD BILATERAL (09/10/2023 [...] is scheduled. BI-RADS 3, probably benign findings. Addis Cope MD IM BI PROCEDURES Final Res ult from Last 3 Months or Most Recently Relevant to Health Maintenance Insurance [facility] [employer] Care Teams Aviation Support Equipment Repairer Relationship Specialty Start Date End Date Nery Holly MD [address] [place] [phone] PCP - General Internal Medicine 02/22/24
== END 2024-07-31 09:44 | disposition home or self-care (01) ==
LOC: HO.PMC 08:38
PROVIDERS: Visit Provider Internal Medicine
DX: M54.40 Lumbago with sciatica, unspecified side (principal); G50.0 Trigeminal neuralgia
CPT/HCPCS: 99214

== ENCOUNTER → 2024-07-31 08:38 | Outpatient (BNVA) | payer OTHER, SELFPAY | PROVIDERS: Visit Provider Internal Medicine | DX: M54.40 Lumbago with sciatica, unspecified side (principal); G50.0 Trigeminal neuralgia | CPT/HCPCS: 99212 ==

== ENCOUNTER 2024-09-14 11:14 | Outpatient (REF) | payer OTHER, SELFPAY ==
--- NOTE | ~2024-09-14 | MR_ITS ---
CLINICAL HISTORY: M54.40 - Lumbago with sciatica, unspecified side MR lumbar spine without gadolinium Comparison: None Findings: Normal alignment. No acute fracture or pathologic bone lesion. Cauda equina and conus medullaris within normal limits. No significant spinal canal or foraminal stenoses. There is minimal broad-based degenerative disc bulge at multiple levels. Paraspinous musculature intact. IMPRESSION: No acute findings. This document has been electronically signed by: Esteban Zambrano MD on 09/15/2024 09:27:38
== END 2024-09-14 11:15 | disposition home or self-care (01) ==
LOC: HO.MRI 11:14
PROVIDERS: PCP Internal Medicine; Visit Provider Internal Medicine
DX: M54.50 Low back pain, unspecified (principal)
CPT/HCPCS: 72148

== ENCOUNTER → 2024-09-14 11:14 | Outpatient (BNV) | payer OTHER, SELFPAY | PROVIDERS: PCP Internal Medicine; Visit Provider Specialist | DX: M54.40 Lumbago with sciatica, unspecified side (principal) | CPT/HCPCS: 72148 ==

== ENCOUNTER 2024-12-01 10:02 | Outpatient (AMB) | payer OTHER, SELFPAY ==
--- NOTE | 2024-12-01 10:51 | A.OFFVIS_ITS ---
Vital Signs 12/01/24 10:53 Height 5 ft 8 in Weight 244 lb BMI 37.1 BP 181/100 H Blood Pressure Location Lt brachial Position Sitting Respiration 16 Pulse 78 Pulse Source Pulse Oximeter Pulse Oximetry (%) 98 Oxygen Delivery Method Room Air Intake Visit Reasons: Back pain Metal Products Fabricator Assembler Required: Yes Metal Products Fabricator Assembler Services: Metal Products Fabricator Assembler Present Metal Products Fabricator Assembler Name: [id number] Tahira Allergies Penicillins Allergy (Verified 12/01/24 10:55) Rash Medication List - Last Reconciled 12/01/24 by Cyndy Bhakta LPN acetaminophen ER 650 mg PO TID albuterol sulfate 90 mcg/actuation (Ventolin HFA) inhalation amlodipine 5 mg PO DAILY atorvastatin 80 mg PO DAILY benzonatate 100 mg PO TID carbamazepine ER 200 mg (2 x 100 mg) PO BID 30 days diclofenac potassium 50 mg PO BID PRN 30 days MDD max 15 days per month ezetimibe mg PO famotidine 20 mg PO DAILY hydrochlorothiazide 25 mg PO DAILY levothyroxine 125 mcg PO DAILY losartan 50 mg PO DAILY metoprolol succinate ER 200 mg PO DAILY omeprazole 20 mg PO DAILY oxybutynin chloride ER 5 mg PO DAILY Oxygen Home Use 10-15 lpm, at onset of headache, via non-rebreather mask x's up to 20 minutes per headache attack. M-tanks and E-tanks. sacubitril-valsartan 49-51 mg (Entresto) 1 tab PO BID sumatriptan succinate mg PO HPI HPI Back pain: Details: History of Present Illness The patient is a 64-year-old female presenting with back pain and radiculopathy. She reports persistent back pain that radiates down her right leg, which has been exacerbated by certain movements such as lifting her leg. The pain has been managed with injections previously, which provided some relief, particularly for her headaches. The patient is considering a cortisone injection for her back pain, which she believes alleviates her symptoms. MRI findings indicate grade one anterolisthesis of L4-L5 with neuroforaminal narrowing on both sides, correlating with her radicular symptoms. The straight leg raise test is positive on the right side, confirming the presence of radiculopathy. Pain Description - Onset: Persistent back pain with radiation to the right leg - Quality: Pain exacerbated by leg lifting - Relief: Cortisone injections provide symptom relief Physical Exam - Musculoskeletal: Positive straight leg raise on the right side Results - MRI: Grade one anterolisthesis of L4-L5 with neuroforaminal narrowing on both sides Pain Management - Analgesia: Cortisone injections considered for back pain relief - Activities of Daily Living: Pain impacts ability to lift leg without discomfort PFSH Surgical History History of cardiac defibrillator placement H/O hernia repair Hx of tonsillectomy Hx of appendectomy H/O: hysterectomy Family History Mother Hyperlipidemia Sister Hyperlipidemia Social History Alcohol intake: never Patient Tobacco Use Status: Never used Tobacco Physical Exam Vital Signs: Last Vital Signs Pulse 78 12/01/24 10:53 Resp 16 12/01/24 10:53 BP 181/100 H 12/01/24 10:53 Pulse Ox 98 12/01/24 10:53 Oxygen Delivery Method Room Air 12/01/24 10:53 BMI result Body Mass Index 37.1 Assessment & Plan Assessment & Plan (1) Lumbago with sciatica: Code(s): M54.40 - Lumbago with sciatica, unspecified side Category: Medical Plan Plan - Plan for a right parasagittal transforaminal L4-5 epidural steroid injection to manage right low back pain. - Obtain insurance authorization for the procedure and follow up with the patient. Patient was informed and verbally consented to the use of an ambient scribe for clinic note documentation during this visit. Discussion Notes I discussed with the patient the MRI findings of grade one anterolisthesis of L4-L5 with neuroforaminal narrowing, which explains her radicular symptoms. We talked about the option of a right parasagittal transforaminal L4-5 epidural steroid injection to alleviate her back pain. The patient agreed to proceed with the injection, and we will obtain insurance authorization before scheduling the procedure. Patient Instructions - Await a call from the nurse regarding insurance authorization and scheduling of the injection. - Monitor symptoms and report any significant changes or worsening of pain. Coding Level of Care Code Est Pt Level 4 (98874) Diagnoses Lumbago with sciatica M54.40
[2024-12-01 10:53] VITALS: BP 181/100; PULSE 78; RESP 16; O2SAT 98; BMI 37.1
== END 2024-12-01 11:25 | disposition home or self-care (01) ==
PROVIDERS: PCP Internal Medicine; Visit Provider Internal Medicine
DX: M54.40 Lumbago with sciatica, unspecified side (principal)
CPT/HCPCS: 99214

== ENCOUNTER → 2024-12-01 10:02 | Outpatient (BNVA) | payer OTHER, SELFPAY | PROVIDERS: PCP Internal Medicine; Visit Provider Internal Medicine | DX: M54.41 Lumbago with sciatica, right side (principal) | CPT/HCPCS: 99212 ==

== ENCOUNTER 2024-12-12 09:42 | Outpatient (AMB) | payer OTHER, SELFPAY ==
--- NOTE | 2024-12-12 09:49 | MHC.OFFVIS ---
Vital Signs 12/12/24 09:50 Height 5 ft 8 in Weight 247 lb 2 oz BMI 37.6 BP 148/100 H Blood Pressure Location Rt brachial Position Sitting Pulse 70 Pulse Source Pulse Oximeter Pulse Oximetry (%) 99 Oxygen Delivery Method Room Air Intake Visit Reasons: 6 mnts f/u appt Intake Note: Patient presents 6 month follow up for Cluster headache/migraine Spanish Translator Required: Yes Spanish Translator Services: Spanish Translator Present Spanish Translator Name: Stratus Accompanied by: Self / Same As Patient Allergies Penicillins Allergy (Verified 12/12/24 09:49) Rash HPI Comments Details: 06/14/2024, previous HPI: The patient is a 64-year-old female presenting with concerns regarding persistent cluster headaches and right facial pain. Denies significant interval medical history changes or hospitalizations. Her cluster headaches have improved. The cluster headaches still occur mostly during the middle of the night. However, they resolve with using p.r.n. O2 at 25 lpm via a non-rebreather mask after approximately 5 minutes. She continues have right facial pain- described as severe pulse-like bursts of right supratrocheear and right trochlear region. This is also a/w right eye redness/ptosis, Triggers include light touch, cold. Since the last visit, patient started on carbamazepine, which has had partial benefit. She has not has follow-up labs yet. Sumatriptan provides partial relief. Interval March 2024 brain MRI with and without contrast and brain MRA without contrast: Within normal limits 02/08/2024 follow-up HPI: She continues to have up to 3-4 episodes of right sided facial pain.. Today pt clarifies- the headache starts as a severe electrical pain from a focal spot in the right frontal area (just above the hairline) and runs down into the mid right eyebrow, and takes over her eye and right TN division I region. The pain is severe, repeated severe pains lasting 20 minutes. A/w restlessness, right eyelid swelling, possibly diaphoresis. Sometimes the pain is so severe she drops to he rknees. The worst attacks are at night between 2-4am, but can recurs up to 4 x's per day. Touching her right eye region can trigger an attack, but attacks can be triggered w/o touch. Attacks are not triggered by light tough, chewing, or wind exposure. Started Crabamazepine- has not helped. She had a [facility] ER eval for this last week- was tx'd w/ toradol- pt states was not very helpful. She has never tried Oxygen tx. She has not had brain ZMRI/MRA yet- unsure why not. HPI from 12/01/23: Right-handed 63-yr-old female presents for new pt evaluation of headache disorder. Pt is accompanied by her , Russell. Pt reports she has been having a right sided electrical pain headache for at least a year w/o known precipitating causes. The pain runs from a focal spot in the right frontal area (just above the hairline) and runs down into the right eyebrow. The pain is severe. The pain occurs most mornings when she washes her face and then recurs throughout the day- with or without touch. The headache is not a/w photophobia, phonophobia, N/V, red eyes, focal weakness. Sometimes ice helps, some times not. Tylenol helps some. Previously has tried Gabapentin and Pregabalin- does not think these helped. She also has a h/o migraine- her last attack was 3 weeks ago. It is a severe pressure pain in the mid-frontal region and bilateral eyes a/w photophobia, phonophobia, dizziness, N/V, which lasts 1-2 days, and happens at times. Uses Sumatripatn 100mg prn, helps a little, well-tolerated. Head CT, [facility]- unremarkable. She has a strong family h/o aneurysm- her grandmother and maternal cousin and niece have had intracranial aneurysms. PMH and ROS are notable for:? General: Vision has been blurry but not more with the headaches. Had eye exam 2 weeks ago- plans to have left eye cataract surgery. Musculoskeletal disorders or injury: Chronic lower back pain radiates into RLE. Leg cramps at night. History of concussion/head injury: Unsure- once passed out while talking on the pay phone- this was yrs ago. Respiratory d/o: Asthma COPD CV disease: HTN HLD Endocrine or metabolic d/o: Thyroid d/o History of syncope- unsure if had had more GI d/o: GERD, Constipation: [employer]: post-menopausal Family history of migraine or other headache disorder: her dtr and mother. Pertinent denials include: Mood d/o, Sleep d/o, Clotting or hematology d/o, metabolic d/o, History of seizure PFSH Surgical History History of cardiac defibrillator placement H/O hernia repair Hx of tonsillectomy Hx of appendectomy H/O: hysterectomy Family History Mother Hyperlipidemia Sister Hyperlipidemia Social History Alcohol intake: never Patient Tobacco Use Status: Never used Tobacco Physical Exam Vital Signs: Last Vital Signs Pulse 70 12/12/24 09:50 BP 148/100 H 12/12/24 09:50 Pulse Ox 99 12/12/24 09:50 Oxygen Delivery Method Room Air 12/12/24 09:50 BMI result Body Mass Index 37.6 Const Orientation/consciousness: patient oriented x3 Resp Effort & Inspection: normal respiratory effort and able to speak in complete sentences Neuro General: patient oriented x3 Cranial nerves: Yes CN's II-XII intact bilaterally ( limits raising rt eyebrow d/t pain, however can raise both symmetrically) Cognition (Neuro): normal cognition Gait exam (Neuro): Normal gait present Motor exam (neuro): 5/5 motor strength present throughout Psych Appearance: grossly normal Mental Status: mental status grossly normal Speech and movement: Normal speech and movement present Affect: normal affect Assessment & Plan Assessment & Plan (1) Lumbago with sciatica: Code(s): M54.40 - Lumbago with sciatica, unspecified side Category: Medical (2) Cluster headache: Code(s): G44.009 - Cluster headache syndrome, unspecified, not intractable Category: Medical Qualifiers: Headache chronicity pattern: unspecified pattern Intractability: not intractable Qualified Code(s): G44.009 - Cluster headache syndrome, unspecified, not intractable (3) Supraorbital neuralgia: Comment: Right Code(s): G50.0 - Trigeminal neuralgia Category: Medical (4) Migraine without aura: Code(s): G43.009 - Migraine without aura, not intractable, without status migrainosus Category: Medical Qualifiers: Status migrainosus presence: without status migrainosus Intractability: not intractable Qualified Code(s): G43.009 - Migraine without aura, not intractable, without status migrainosus (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 Optimize good self-care, including but not limited to maintaining a healthy diet, adequate fluid intake, adequate sleep, and engaging in regular physical activity. Track headaches, especially after any treatment regimen changes. For cluster headache: Information has been shared on patient resources, such as clusterbusters.org. Continue Home high flow O2 15-25 lpm via non-rebreather mask at onset of attack- pt requires both M tank and E-tanks. Continue Sumatriptan 100mg prn, MR x's 1 in 2hrs. Future considerations- trial of verapamil, Emgality 300 mg subQ monthly during cluster attack. For supraorbital and trochlear neuralgia headache: Continue Carbamazepine ER 200mg bid. Trial adding Melatonin 3mg q evening. Check fasting CBC, CMP, carbamazepine level Returned to pain management if symptoms worsen For acute migraine headache treatment: Continue Sumatriptan 100mg prn, MR x's 1 in 2hrs. May take sumatriptan with diclofenac as below Diclofenac 50 mg onset of migraine attack, may repeat in 12 hours. Previous acute migraine medication trials: no known others Acute migraine medication contraindications: None at this time For migraine headache prevention medication: Continue Metoprolol- used for HTN Carbamazepine as ordered above Will follow-up upon review of above and patient to follow-up in clinic in 6 months or sooner prn. Orders: Orders Comprehensive [place]. Panel Fast 12/12/24 G44.009 - Cluster headache syndrome, unspecified, not intractable, G50.0 - Trigeminal neuralgia, I10 - Essential (primary) hypertension Carbamazepine Tegretol 12/12/24 G40.909 - Epilepsy, unspecified, not intractable, without status epilepticus, G44.009 - Cluster headache syndrome, unspecified, not intractable, G50.0 - Trigeminal neuralgia, I10 - Essential (primary) hypertension Complete Blood Count Auto Diff 12/12/24 G44.009 - Cluster headache syndrome, unspecified, not intractable, G50.0 - Trigeminal neuralgia, I10 - Essential (primary) hypertension Medications: New sumatriptan succinate 50 - 100 mg orally at onset of headache, may repeat in 2 hrs PRN; max 2 tabs per day or 4 tabs/week (may take with diclofenac) 12 tabs 6RF migraine headache 30 days MDD 2 tabs Changed From carbamazepine ER 200 mg (2 x 100 mg) PO BID 30 days 120 caps 3RF G44.009 - Cluster headache syndrome, unspecified, not intractable, G50.0 - Trigeminal neuralgia To carbamazepine ER 200 mg (2 x 100 mg) PO BID 360 caps 1RF 90 days G44.009 - Cluster headache syndrome, unspecified, not intractable, G50.0 - Trigeminal neuralgia Refilled diclofenac potassium 50 mg PO BID PRN 30 tabs 3RF headache 30 days MDD max 15 days per month Coding Level of Care Code Est Pt Level 4 (39985) Diagnoses Lumbago with sciatica M54.40 Cluster headache, not intractable, unspecified chronicity pattern G44.009 Headache chronicity pattern: unspecified pattern Intractability: not intractable Supraorbital neuralgia G50.0 Migraine without aura and without status migrainosus, not intractable G43.009 Status migrainosus presence: without status migrainosus Intractability: not intractable 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
[2024-12-12 09:50] VITALS: BP 148/100; PULSE 70; O2SAT 99; BMI 37.6
== END 2024-12-12 10:47 | disposition home or self-care (01) ==
LOC: HO.HSMS 09:43
PROVIDERS: Visit Provider Nurse Practitioner Family
DX: M54.40 Lumbago with sciatica, unspecified side (principal); G44.009 Cluster headache syndrome, unspecified, not intractable; G50.0 Trigeminal neuralgia; G43.009 Migraine without aura, not intractable, without status migrainosus; H49.10 Fourth [trochlear] nerve palsy, unspecified eye; M79.2 Neuralgia and neuritis, unspecified; Z82.49 Family history of ischemic heart disease and other diseases of the circulatory system
CPT/HCPCS: 99214

== ENCOUNTER → 2024-12-12 09:42 | Outpatient (BNVA) | payer OTHER, SELFPAY | PROVIDERS: Visit Provider Nurse Practitioner Family | DX: M54.40 Lumbago with sciatica, unspecified side (principal); G50.0 Trigeminal neuralgia; G43.009 Migraine without aura, not intractable, without status migrainosus; H49.10 Fourth [trochlear] nerve palsy, unspecified eye; Z82.49 Family history of ischemic heart disease and other diseases of the circulatory system | CPT/HCPCS: 99212 ==

== ENCOUNTER 2025-01-01 08:08 | Outpatient (REF) | payer OTHER, SELFPAY ==
--- OUTSIDE RECORDS SUMMARY | 2024-01-27 08:40 | XMS_ITS | Encounter Summary ---
Author Organization [facility] Address [address] [place] [address] Care Team Providers Care Wood Car Builder Name Role Phone María Cruz MD Primary Care Provider Mary wick Encounter Details Date Type Department Care Team (Late st Contact Info) Description 01/27/2024 8:40 AM EDT Hospital Encounter TH HISTORIC ENCOUNTERS EASTERN CONVERSION ONLY Darrell Randolph MD [address] [place] [address] Social History Tobacco Use Types Packs/Day Years [...] care for your loved ones. For example, children's author or elderly care for an older adult? [...] is a 63 y.o. female. HPI: 63-year-old Montenegrin-speaking female (history and physical done with the [...] symptom and have work-up by a air sampling and monitoring including CT scan that showed left lung [...] lung (HCC) ADENOCARCINOMA OF LEFT LUNG 63-year-old Montenegrin-speaking female, history and physical done with the [...] 11:00 AM EDT Office Visit Adult Medicine [address] [phone] Nery Holly MD [address] [place] [address] 02/26/2025 9:00 AM EST Office Visit [facility] Hematology Oncology [address] [place] [phone] Darrell Randolph MD [address] [place] [phone] 03/28/2025 9:45 AM EST Office Visit Adult Medicine [address] [phone] Nery Holly MD [address] [place] [address] documented as of this encounter Visit Diagnoses Not on filedocumented in this encounter Care Teams Wood Car Builder Relationship Specialty Start Date End Date Cruz, María, MD Need Updated Address PCP - General 01/27/24 02/21/24 documented as of this encounter
--- OUTSIDE RECORDS SUMMARY | 2024-01-27 09:30 | XMS_ITS | Encounter Summary ---
Author Organization [facility] Address [address] [place] [address] Care Team Providers Care Juvenile Probation Officer Name Role Phone María Cruz MD Primary Care Provider Mary wick Encounter Details Date Type Department Care Team (Late st Contact Info) Description 01/27/2024 9:30 AM EDT Hospital Encounter TH HISTORIC ENCOUNTERS EASTERN CONVERSION ONLY Darrell Randolph MD [address] [place] [address] Social History Tobacco Use Types Packs/Day Years [...] for your loved ones. For example, child nurse or elderly care for an older adult? [...] 11:00 AM EDT Office Visit Adult Medicine [address] [phone] Nery Holly MD [address] [place] [address] 02/26/2025 9:00 AM EST Office Visit [facility] Hematology Oncology [address] [place] [phone] Darrell Randolph MD [address] [place] [address] 03/28/2025 9:45 AM EST Office Visit Adult Medicine [facility] [address] [place] [address] Nery Holly MD [address] [place], [place] documented as of this encounter Visit Diagnoses Not on filedocumented in this encounter Care Teams Juvenile Probation Officer Relationship Specialty Start Date End Date María Cruz MD Need Updated Address PCP - General 01/27/24 02/21/24 documented as of this encounter
--- OUTSIDE RECORDS SUMMARY | 2025-01-01 08:36 | XMS_ITS | Clinical Summary ---
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 Mud Analysis Name Role Phone María Cruz MD Primary Care Provider [phone]- [phone] Allergies Active Allergy Reactions Criticality Noted Date [...] cancer 11/20/2014 Overview: Left PET scan done [facility] 11/15/14 CT 07/11/2020 enlarging : Wedge resection [...] 83 01/27/2024 9:32 AM EDT Temperature 36.6 C (97.9 F) 01/27/2024 9:32 AM EDT Respiratory Rate - - Oxygen Saturation 100% [...] years 1-dose series) 2021 Influenza Vaccine (#1) 2024 3, 03/05/2021 DTap / Tdap / Td (3 - Td or Tdap) 10/23/2030 10/23/2020, 09/02/2010 Hepatitis B Vaccines Aged Out No long er eligible based on patient's age to complete this topic RSV Ped < 20 months Aged Out No longe r eligible based on patient's age to complete this topic Care Teams Well Logging Operator Mud Analysis Relationship Specialty Start Date End Date María Cruz MD PCP - General Internal Medicine 11/13/20
--- OUTSIDE RECORDS SUMMARY | 2025-01-01 08:36 | XMS_ITS ---
Author Name [facility] Organization Unknown Care Team Organization Name Specialty Phone Email Start Date End Da te [facility] Nery Valentine [facility] 07/21/2022 12/06/2023 [facility] Vanessa Tucker Primary [facility] 02/24/2022
--- OUTSIDE RECORDS SUMMARY | 2025-01-01 08:37 | XMS_ITS | Clinical Summary ---
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 10/24/19 20 Active albuterol 2.5 mg /3 mL (0.083 %) nebulizer solution Inhale 3 mL (2.5 mg total) into the lungs. 12/18/19 20 Active fluticasone propionate (FLONASE) 50 mcg/actuation nasal spray Two sprays per nostril once daily as needed for allergies 06/25/19 21 Active gabapentin (NEURONTIN) 300 mg capsule Take 1 capsule (300 mg total) by mouth. 06/25/19 21 Active meclizine (ANTIVERT) 25 mg tablet Take 1 tablet (25 mg total) by mouth. 12/18/19 20 Active omeprazole (PriLOSEC) [address] capsule Take 1 capsule (40 mg total) by mouth. 09/13/19 21 Active ondansetron (ZOFRAN) 4 mg tablet Take 1 tablet (4 mg total) by mouth. 09/05/19 20 Active senna 8.6 mg tablet TOME DOS TABLETAS POR V A ORAL AL ACOSTARSE 11/16/19 21 Active sucralfate (CARAFATE) 1 gram tablet TAKE 1 TABLET BY MOUTH 2 TIMES DAILY (BEFORE MEALS) 11/12/19 21 Active SUMAtriptan (IMITREX) 100 mg tablet Take 1 tablet (100 mg total) by mouth. 10/24/19 20 Active aspirin 81 mg EC tablet Take 1 tablet (81 mg total) by mouth 1 (one) time each day. 12/04/19 22 Active ofloxacin (OCUFLOX) 0.3 % ophthalmic solution PUT 1 DROP INTO LEFT EYE 4 TIMES DAILY.. AFTER EYE SHIELD IS REMOVED IN OFFICE DAY AFTER SURGERY 04/18/20 24 Active diclofenac (VOLTAREN) 1 % topical gelIndications:Susan manoj osteoarthritis of right knee,Primary osteoarthritis of left knee,History of recent fall APPLY 4 G TOPICALLY 4 (FOUR) TIMES A DAY IF NEEDED (PAIN OR SWELLING). 100 g 5 08/04/19 25 Active oxyBUTYnin XL (DITROPAN-XL) 5 mg 24 hr tablet Take 1 tablet (5 mg total) by mouth 1 (one) time each day. 90 tablet 1 08/15/19 25 Active famotidine (PEPCID) 20 mg tabletIndications: Essential (primary) hypertension Take 1 tablet (20 mg total) by mouth 1 (one) time each day. 90 tablet 1 08/15/19 25 Active hydroCHLOROthiazid e (HYDRODIURIL) 25 mg tabletIndications: Essential (primary) hypertension Take 1 tablet (25 mg total) by mouth 1 (one) time each day. 90 tablet 1 08/15/19 25 Active methocarbamoL (ROBAXIN) 750 mg tablet Take 1 tablet (750 mg total) by mouth 4 (four) times a day for 7 days. 28 each 10/16/19 25 Active carvediloL (COREG) 25 mg tablet TOME 1 TABLETA POR V A ORAL DOS VECES AL D A 11/07/19 25 Active Farxiga 10 mg tablet TOME 1 TABLETA POR V A ORAL TODOS LOS D 08/22/19 25 Active cyclobenzaprine (FLEXERIL) 5 mg tablet Take 1 tablet (5 mg total) by mouth 3 (three) times a day if needed for muscle spasms. 90 tablet 11/21/19 25 Active atorvastatin (LIPITOR) 40 mg tablet Take 1 tablet (40 mg total) by mouth 1 (one) time each day. 90 each 12/20/19 25 Active losartan (COZAAR) 50 mg tablet Take 1 tablet (50 mg total) by mouth 1 (one) time each day. 90 tablet 12/20/19 25 Active levothyroxine (SYNTHROID, LEVOTHROID) 150 mcg tablet Take 1 tablet (150 mcg total) by mouth 1 (one) time each day. 90 each 12/20/19 25 026 Active losartan (COZAAR) 50 mg tablet Take 1 tablet (50 mg total) by mouth daily. 06/25/19 21 025 Discontin ued(Reord er) levothyroxine (SYNTHROID, LEVOTHROID) 150 mcg tablet Take 1 tablet (150 mcg total) by mouth 1 (one) time each day. 90 each 3 05/03/19 25 025 Discontin ued(Reord er) atorvastatin (LIPITOR) 40 mg tablet Take 1 tablet (40 mg total) by mouth 1 (one) time each day. 90 each 1 08/16/19 25 025 Discontin ued(Reord er) atorvastatin (LIPITOR) 40 mg tablet Take 1 tablet (40 mg total) by mouth 1 (one) time each day. 90 each 1 12/06/19 25 025 Discontin ued(Reord er) Active Problems Problem Noted Date Diagnosed Date Severe obesity (BMI 35.0-39. 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 Patient continues to decline referral to a pain specialist. She would like to continue on the current dose of gabapentin. I have sent in a refill for gabapentin 100 mg capsules with instructions to take 1 capsule 3 times daily. Given that this is becoming a chronic [...] hematuria 11/28/2021 Hyperlipidemia 11/20/2020 Assessment & Plan (08/15/2024 1:40 PM EDT): Orders: Comprehensive metabolic panel; Future Lipid panel with reflex to direct LDL; Future Assessment & Plan (05/05/2024 5:42 PM EST): [...] 09/05/2019 Venous insufficiency 02/23/2018 Asthma-COPD overlap syndrome ([facility]/HCC V24, [facility]/H CC V28) 08/27/2017 Assessment & Plan (05/05/2024 5:42 PM EST): No recent exacerbations, no visits to ER. Continue albuterol prn. Will continue to monitor. Pneumonitis 08/27/2017 Lung cancer (CMS/HCC V24, CMS/HCC V28) 5 Overview (01/07/2024): Left PET scan done [facility] 11/15/14 CT 07/11/2020 enlarging : Wedge resection converted to Left lower Lobectomy 10/29/2020 w/ pos intraoperative DX HTN (hypertension) 10/27/2013 Assessment & Plan (08/15/2024 1:40 PM EDT): Orders: Comprehensive metabolic panel; Future Lipid panel with reflex to direct LDL; Future Assessment & Plan (05/05/2024 5:42 PM EST): Today 102/72. Patient currently on Losartan, hctz. Recommended to follow a low- salt diet and exercise as much as she can. Mastalgia 02/20/2013 Sebaceous cyst 02/20/2013 Overview (05/02/2024): Last Assessment & Plan: I counseled her these are not worrisome. She is bothered by them and will return for excision. Diverticulitis 02/07/2013 Overview (01/07/2024): 01/2013 [facility] Lumbar facet arthropathy 01/21/2011 Hypothyroidism 09/02/2010 Assessment & Plan (08/16/2024 4:46 PM EDT): Assessment & Plan (05/05/2024 5:42 PM EST): Recent TSH 17.5. Will increase levothyroxine to 150mcg. Will recheck levels in 6 weeks. Orders: Thyroid stimulating hormone; Future Encounters Date Type Department Care Team Description 12/19/2024 9:45 AM EDT Office Visit Adult Medicine [address] [phone] Carol Walters PA Primary hypertension (Primary Dx); Mixed hyperlipidemia; Hypothyroidism, unspecified type; Severe obesity (BMI 35.0-39.9) with comorbidity (CMS/HCC V24, CMS/HCC V28); Screening for malignant neoplasm of colon 11/20/2024 11:30 AM EDT - 11/20/2024 11:59 PM EDT Hospital Encounter XRAY [address] [phone] Acute pain of right knee; Fall due to wet surface, subsequent encounter Discharge Disposition: Home or Self Care 11/20/2024 11:00 AM EDT Office Visit [address] [phone] Carol Walters PA Right hip pain (Primary Dx); Acute pain of right knee; Neck pain on right side; Chest wall pain; Fall due to wet surface, subsequent encounter 11/14/2024 9:45 AM EDT Office Visit [address] [phone] Carol Walters PA Primary hypertension (Primary Dx); Mixed hyperlipidemia; Hypothyroidism, unspecified type; Severe obesity (BMI 35.0-39.9) with comorbidity (CMS/HCC V24, CMS/HCC V28) 10/16/2024 8:43 AM EDT - 10/16/2024 11:59 PM EDT Hospital Encounter Radiology Department [address] [phone] Discharge Disposition: Home or Self Care 10/15/2024 7:30 PM EDT - 10/15/2024 9:44 PM EDT Emergency [facility] Emergency [address] [place] [address] Contusion of neck, initial encounter (Primary Dx); Fall, initial encounter; Chest wall pain; Right hip pain Discharge Disposition: Home or Self Care 10/10/2024 10:30 AM EDT Consult Adult Medicine [address] [phone] Josie guzman, Nery Ramirez MD Preop cardiovascular exam (Primary Dx); Pterygium of right eye from Last 3 Months Immunizations Name Administration Dates Next Due Influenza Quadravalent, MDCK , 0.5ml, preservative free (Flucelvax) 6mo and older 12/24/2022,03/05/2021 Pneumococcal polysaccharide 23 valent (Pneumovax 23) 2yo and older 04/30/2016 Tdap Tetanus diptheria acell ular pertussis (Boostrix; Adacel) 7yo and older 10/23/2020,09/02/2010 Surgical History Surgery Date Site/Laterality Comments EYE [...] LLL lobectomy BREAST SURGERY 04/19/2016 Right PROCEDURE: MA UNLISTED PROCEDURE BREAST; COMMENT: neg Medical History Medical History Date Comments Essential hypertension, benign D X:Essential hypertension, benign Hypothyroidism DX:Hypothyroidis m Hyperlipidemia DX:Hyperlipidemi a Diverticulitis 02/07/2013 DX:Diverticuliti s; COMMENT: 01/2013 [facility] Sebaceous cyst 02/20/2013 DX:Sebaceous cys t Mastalgia 02/20/2013 DX:Mastalgia Moderate persistent asthma w ithout complication 04/08/2016 DX:Moderate persistent asthm a without complication Lumbar facet arthropathy 01/21/2011 DX:Lumb ar facet arthropathy Venous insufficiency 02/23/2018 DX:Venous i nsufficiency DJD (degenerative joint dise ase) of knee 09/19/2020 DX:DJD (degenerative joint d isease) of knee Lung cancer (CMS/HCC V24, CM S/HCC V28) 11/20/2014 DX:Lung cancer (HCC); COMMEN T: Left PET scan done [facility] 11/15/14 CT 07/11/2020 enlarging : Wedge [...] Comments Aunt 1 maternal Aunt 2 maternal Aunt 3 Daughter Alive Father Mother Other [...] Sexual Orientation Not on file Obstetrics History Para Term AB IAB SAB Ectopic Multiple Livin g Live Births 5 5 5 5 Date Outcome GA Total Labor Labor/2nd/3rd Weight Sex Type Anes PTL Jessica A1 A5 Name Clin Term Term Term Term Term Last Filed Vital Signs Vital Sign Reading Time Taken Comments Blood Pressure 133/83 12/19/2024 9:53 AM EDT Pulse 82 12/19/2024 9:53 AM EDT Temperature 36.2 C (97.1 F) 12/19/2024 9:53 AM EDT Respiratory Rate 15 12/19/2024 9:53 AM EDT Oxygen Saturation 98% 12/19/2024 9:53 AM EDT Inhaled Oxygen Concentration - - Weight 110 kg (242 lb) 12/19/2024 9:53 AM EDT Height 172.7 cm (5' 8 ) 12/19/2024 9:53 AM EDT Body Mass Index 36.8 12/19/2024 9:53 AM EDT Plan of Treatment Upcoming Encounters Date Type Department Care Team (Late st Contact Info) Description 02/15/2025 11:00 AM EDT Office Visit Adult Medicine [address] [phone] Nery Holly MD [address] [place] [address] 02/26/2025 9:00 AM EST Office Visit [facility] Hematology Oncology [address] [place] [address] [phone] Darrell Randolph MD [address] [place] [address] 03/28/2025 9:45 AM EST Office Visit Adult Medicine [address] [phone] Nery Holly MD [address] [place], [place] Health Maintenance Due Date Last Done Comments Zoster Vaccines (1 of 2) 1980 Pneumococcal Vaccine: 50+ Years (2 of 2 - PCV) 04/30/2017 04/30/2016 RSV Immunization Adult Patients (1 - Risk 60-74 years 1-dose series) 2021 HIV Screening 03/28/2022 Hepatitis C Screening 03/28/2022 Colorectal Cancer Screening: Colonoscopy 11/11/2023 11/10/2013 Influenza Vaccine (#1) 2024 12/24/2022, 2020 Social Influencers of Health Screening 04/11/2025 04/11/2024 Hypertension/CHF/CAD Annual BMP Blood Test 12/04/2025 12/04/2024, 03/22/2024, 03/16/2024, Additional history exists Breast Cancer Screening 10/16/2026 10/17/19, 09/10/2023, 09/10/2023, Additional history exists Cholesterol Screening (Lipid Panel) 12/04/2029 12/04/2024, 08/04/2024, 03/22/2024 DTaP,Tdap,and Td Vaccines (3 - Td or Tdap) 10/23/2030 10/23/2020, 09/02/2010 COVID-19 Vaccine Discontinued 06/09/2022, , 10/09/2020, Additional history exists Depression Screening Completed 11/14/2024 HIB Vaccines Aged Out No longer eligi [...] Procedure Name Priority Date/Time Associated Diagnosis Comments LIPID PANEL WITH REFLEX TO DIRECT LDL Routine 12/04/2024 8:51 AM EDT Mixed hyperlipidemia COMPREHENSIVE METABOLIC PANEL Routine 12/04/2024 8:51 AM EDT Mixed hyperlipidemia THYROID STIMULATING HORMONE WITH REFLEX TO FREE T4 AND FREE T3 Routine 12/04/2024 8:51 AM EDT Hypothyroidism, unspecified type XR KNEE 4+ VIEWS RIGHT Routine 11/20/2024 11:39 AM EDT Acute pain of right knee Fall due to wet surface, subsequent encounter [facility] MAMMO DIGITAL DIAGNOSTIC W WALTER BILAT Routine 10/16/2024 9:24 AM EDT Other abnormal and inconclusive findings on diagnostic imaging of breast XR CHEST 2 VIEWS STAT 10/15/2024 9:01 PM EDT XR HIP 2-3 VIEWS RIGHT STAT 10/15/2024 9:[address] CERVICAL SPINE WO CONTRAST STAT 10/15/2024 8:[address] HEAD WO CONTRAST STAT 10/15/2024 8 :04 PM EDT from Last 3 Months Results * Thyroid stimulating hormone with reflex to free t4 and free t3 (12/04/2024 8:51 AM EDT) TSH 2.47 0.40 - 4.00 mcIU/mL LAB CHEMISTRY METHOD 12/04/2024 12:07 PM EDT [facility] ([facility] Blood Venous blood specimen / Unknown Venipuncture / Unknown 12/04/2024 8:51 AM EDT 12/04/2024 8:51 AM EDT us Carol ANGEL LAB BLOOD ORDERABLES Final Resu lt [facility] [address] [place] [address], [place] [phone] * (ABNORMAL) Lipid panel with reflex to direct LDL (12/04/2024 8:51 AM EDT) Cholesterol 262(H) 0 - 200 mg/dL LAB CHEMISTRY METHOD 12/04/2024 11:[address] [facility] Triglycerides 209(H) 0 - 150 mg/dL LAB CHEMISTRY METHOD 12/04/2024 11:22 AM [facility] HDL 55 >=40 mg/dL LAB CHEMISTRY METHOD 12/04/2024 11:[address] [facility] LDL Calculated 165(H) 0 - 100 mg/dL LAB CHEMISTRY METHOD 12/04/2024 11:[address] [facility] Comment:Estimated LDL Calcul ated using equation: Total cholesterol - HDL cholesterol - (Triglycerides/5) VLDL Cholesterol Daniel 41.8 mg/dL LAB CHEMISTRY METHOD 12/04/2024 11:22 AM [facility] Non HDL Chol. (LDL+VLDL) 207(H) <145 mg/dL LAB CHEMISTRY METHOD 12/04/2024 11:[address] [facility] Chol/HDL Ratio 4.8(H) 0.0 - 4.4 LAB CHEMISTRY METHOD 12/04/2024 11:[address] [facility] Blood Venous blood specimen / Unknown Venipuncture / Unknown 12/04/2024 8:51 AM EDT 12/04/2024 8:51 AM EDT us Carol ANGEL LAB BLOOD ORDERABLES Final Resu lt [facility] [address] [place] [address], * Comprehensive metabolic panel (12/04/2024 8:51 AM EDT) Sodium 140 133 - 145 mmol/L LAB CHEMISTRY METHOD 12/04/2024 11:22 AM [facility] Potassium 3.9 3.5 - 5.5 mmol/L LAB CHEMISTRY METHOD 12/04/2024 11:22 AM [facility] Chloride 108 96 - 110 mmol/L LAB CHEMISTRY METHOD 12/04/2024 11:22 AM [facility] CO2 28 21 - 32 mmol/L LAB CHEMISTRY METHOD 12/04/2024 11:22 AM [facility] Anion Gap 4 3 - 11 LAB CHEMISTRY METHOD 12/04/2024 11:22 AM [facility] Glucose 90 70 - 100 mg/dL LAB CHEMISTRY METHOD 12/04/2024 11:22 AM [facility] BUN 19 5 - 25 mg/dL LAB CHEMISTRY METHOD 12/04/2024 11:22 AM [facility] Creatinine 0.77 0.50 - 1.10 mg/dL LAB CHEMISTRY METHOD 12/04/2024 11:22 AM [facility] eGFR 87 >=60 mL/min/1. 73m2 LAB CHEMISTRY METHOD 12/04/2024 11:22 AM [facility] Comment:Calculation based on the Chronic Kidney Disease Epidemiology Collaboration (CKD-EPI) equation refit without adjustment for race. BUN/Creatinine Ratio 24.7 LAB CHEMISTRY METHOD 12/04/2024 11:22 AM [facility] Calcium 9.3 8.5 - 10.5 mg/dL LAB CHEMISTRY METHOD 12/04/2024 11:22 AM [facility] AST (SGOT) 11 10 - 42 unit/L LAB CHEMISTRY METHOD 12/04/2024 11:[address] [facility] ALT (SGPT) 24 10 - 60 unit/L LAB CHEMISTRY METHOD 12/04/2024 11:[address] [facility] Alkaline Phosphatase 79 42 - 121 unit/L LAB CHEMISTRY METHOD 12/04/2024 11:[address] [facility] Total Protein 6.5 6.0 - 8.0 g/dL LAB CHEMISTRY METHOD 12/04/2024 11:[address] [facility] Albumin 3.9 3.2 - 5.0 g/dL LAB CHEMISTRY METHOD 12/04/2024 11:[address] [facility] Total Bilirubin 0.9 0.0 - 1.4 mg/dL LAB CHEMISTRY METHOD 12/04/2024 11:[address] [facility] Blood Venous blood specimen / Unknown Venipuncture / Unknown 12/04/2024 8:51 AM EDT 12/04/2024 8:51 AM EDT us Carol ANGEL LAB BLOOD ORDERABLES Final Resu lt [facility] [address] [place] [address], * XR Knee 4+ Views Right (11/20/2024 11:39 AM EDT) Anatomical Region Laterality Modality Lower Extremities, Knee Right Radiogra phic Imaging 11/20/2024 4:35 PM EDT Impressions 11/20/2024 4:35 PM EDT Minor degenerative changes. No acute findings. -------- FINAL REPORT -------- Dictated By: Sarai Godoy Dictated Date: 11/20/2024 16:35 ET Assigned Physician: Sarai Godoy Reviewed and Electronically Signed By: Sarai Godoy Signed Date: 11/20/2024 16:35 ET Workstation ID: [id number] Transcribed By: Self Edit Transcribed Date: 11/20/2024 16:35 ET Narrative 11/20/2024 4:35 PM EDT RIGHT KNEE VIEWS: 4. HISTORY: Pain. FINDINGS: There is minor degenerative spurring of the medial femoral tibial compartment and lateral femoral tibial compartment. No fracture or malalignment is seen. Soft tissues are normal. The patellae are normally positioned on the Merchant view. No joint effusion is seen. Procedure Note Sarai Godoy MD - 11/20/2024 RIGHT KNEE VIEWS: 4. HISTORY: Pain. FINDINGS: There is minor degenerative spurring of the medial femoraltibial compartment and lateral femoral tibial compartment. No fracture or malalignment is seen. Soft tissues are normal. The patellaeare normally positioned on the Merchant view. No joint effusion is seen. IMPRESSION: Minor degenerative changes. No acute findings. -------- FINAL REPORT -------- Dictated By: Sarai Godoy Dictated Date: 11/20/2024 16:35 ET Assigned Physician: Sarai Godoy Reviewed and Electronically Signed By: Sarai Godoy Signed Date: 11/20/2024 16:35 ET Workstation ID: [id number] Transcribed By: Self Edit Transcribed Date: 11/20/2024 16:35 ET Carol ANGEL IMG XR PROCEDURES Final Result * MG Mammo Digital Diagnostic w Walter bilat (10/16/2024 9:24 AM EDT) Anatomical Region Laterality Modality Breast Bilateral Mammography 10/16/2024 9:31 AM EDT Narrative 10/16/2024 9:38 AM EDT Bilateral mammogram. Diagnostic mammogram of the right breast. History follow-up on focal asymmetry in the right upper breast. Full field bilateral digital mammograms were obtained with 2-D C views and Tomosynthesis as well as spot compression views of the right breast in CC and MLO projections. Comparison with prior mammograms dating back to 08/22/2021. Focal asymmetry of concern in the right upper breast is essentially stable and somewhat less conspicuous. Stability of 2 years suggests benign nature. There is no evidence of new focal asymmetries, architectural distortion or suspicious calcifications. CONCLUSIONS: No mammographic evidence for malignancy. Follow-up mammogram at the time of the next a annual screening. BIRADS 2, benign findings. -------- FINAL REPORT -------- Dictated By: Anne Archibald Dictated Date: 10/16/2024 09:31 ET Assigned Physician: Anne Archibald Reviewed and Electronically Signed By: Anne Archibald Signed Date: 10/16/2024 09:38 ET Workstation ID: [id number] Transcribed By: Self Edit Transcribed Date: 10/16/2024 09:31 ET Procedure Note Anne Archibald MD - 10/16/2024 Bilateral mammogram. Diagnostic mammogram of the right breast. History follow-up on focal asymmetry in the right upper breast. Full field bilateral digital mammograms were obtained with 2-D C views andTomosynthesis as well as spot compression views of the right breast in CCand MLO projections. Comparison with prior mammograms dating back to 08/22/2021. Focal asymmetry of concern in the right upper breast is essentiallystable and somewhat less conspicuous. Stability of 2 years suggestsbenign nature. There is no evidence of new focal asymmetries, architectural distortion orsuspicious calcifications. CONCLUSIONS: No mammographic evidence for malignancy. Follow-up mammogramat the time of the next a annual screening. BIRADS 2, benign findings. -------- FINAL REPORT -------- Dictated By: Anne Archibald Dictated Date: 10/16/2024 09:31 ET Assigned Physician: Anne Archibald Reviewed and Electronically Signed By: Anne Archibald Signed Date: 10/16/2024 09:38 ET Workstation ID: [id number] Transcribed By: Self Edit Transcribed Date: 10/16/2024 09:31 ET us Addis Cope MD IMG BI PROCEDURES Final Res ult * XR Hip 2-3 Views Right (10/15/2024 9:01 PM EDT) Anatomical Region Laterality Modality Lower Extremities, Hip Right Radiograp hic Imaging 10/16/2024 8:28 AM EDT Impressions 10/16/2024 8:29 AM EDT No acute findings. -------- FINAL REPORT -------- Dictated By: Silviano Levi Dictated Date: 10/16/2024 08:28 ET Assigned Physician: Silviano Levi Reviewed and Electronically Signed By: Silviano Levi Signed Date: 10/16/2024 08:29 ET Workstation ID: [id number] Transcribed By: Self Edit Transcribed Date: 10/16/2024 08:28 ET Narrative 10/16/2024 8:29 AM EDT PROCEDURE: Radiographs of the right hip. HISTORY: trauma right hip. COMPARISON: None. FINDINGS: Mild changes of the visualized lumbar spine, hips, SI joints, and pubic symphysis. Alignment is normal. No bony lesion. Normal soft tissues. Procedure Note Silviano Levi MD - 10/16/2024 PROCEDURE: Radiographs of the right hip. HISTORY: trauma right hip. COMPARISON: None. FINDINGS: Mild changes of the visualized lumbar spine, hips, SI joints, and pubicsymphysis. Alignment is normal. No bony lesion. Normal soft tissues. IMPRESSION: No acute findings. -------- FINAL REPORT -------- Dictated By: Silviano Levi Dictated Date: 10/16/2024 08:28 ET Assigned Physician: Silviano Levi Reviewed and Electronically Signed By: Silviano Levi Signed Date: 10/16/2024 08:29 ET Workstation ID: [id number] Transcribed By: Self Edit Transcribed Date: 10/16/2024 08:28 ET Fannie ANGEL IMG XR PROCEDURES Final Re sult * XR Chest 2 Views (10/15/2024 9:01 PM EDT) Anatomical Region Laterality Modality Body Radiographic Martha ging 10/16/2024 8:36 AM EDT Impressions 10/16/2024 8:37 AM EDT No acute findings. -------- FINAL REPORT -------- Dictated By: Silviano Levi Dictated Date: 10/16/2024 08:36 ET Assigned Physician: Silviano Levi Reviewed and Electronically Signed By: Silviano Levi Signed Date: 10/16/2024 08:37 ET Workstation ID: [id number] Transcribed By: Self Edit Transcribed Date: 10/16/2024 08:36 ET Narrative 10/16/2024 8:37 AM EDT PROCEDURE: PA and lateral radiographs of the chest. HISTORY: trauma, left chest pain. COMPARISON: 03/16/2023. FINDINGS: Left-sided pacemaker/automatic implantable cardiac defibrillator generator with biventricular and right atrial leads. Heart size upper normal. Atherosclerotic calcification of the aorta. Pleural spaces and pulmonary vasculature are normal. Cholecystectomy clips. Bones appear demineralized. Procedure Note Silviano Levi MD - 10/16/2024 PROCEDURE: PA and lateral radiographs of the chest. HISTORY: trauma, left chest pain. COMPARISON: 03/16/2023. FINDINGS: Left-sided pacemaker/automatic implantable cardiac defibrillator generatorwith biventricular and right atrial leads. Heart size upper normal.Atherosclerotic calcification of the aorta. Pleural spaces and pulmonaryvasculature are normal. Cholecystectomy clips. Bones appeardemineralized. IMPRESSION: No acute findings. -------- FINAL REPORT -------- Dictated By: Silviano Levi Dictated Date: 10/16/2024 08:36 ET Assigned Physician: Silviano Levi Reviewed and Electronically Signed By: Silviano Levi Signed Date: 10/16/2024 08:37 ET Workstation ID: [id number] Transcribed By: Self Edit Transcribed Date: 10/16/2024 08:36 ET Fannie ANGEL IMG XR PROCEDURES Final Re sult * CT Cervical Spine wo Contrast (10/15/2024 8:04 PM EDT) Anatomical Region Laterality Modality Spine, C-spine Computed Tomogra phy 10/15/2024 8:40 PM EDT Impressions 10/15/2024 8:40 PM EDT No acute fractures or dislocations. This document has been electronically signed by: Noa Wylie MD on 10/15/2024 20:40:15 Narrative 10/15/2024 8:40 PM EDT INDICATION: Neck trauma, uncomplicated (NEXUS/CCR neg) (Age 16-64y) CT cervical spine without contrast Comparison: None provided Findings: Vertebral alignment is within normal limits. No significant degenerative change. No acute fractures or dislocations. No acute findings on limited view of the intracranial contents. Soft tissues of the neck are normal. Lung apices are clear. Procedure Note Noa Wylie MD - 10/15/2024 INDICATION: Neck trauma, uncomplicated (NEXUS/CCR neg) (Age 16-64y) CT cervical spine without contrast Comparison: None provided Findings: Vertebral alignment is within normal limits. No significant degenerative change. No acute fractures or dislocations. No acute findings on limited view of the intracranial contents. Soft tissues of the neck are normal. Lung apices are clear. IMPRESSION: No acute fractures or dislocations. This document has been electronically signed by: Noa Wylie MD on 10/15/2024 20:40:[address] PROCEDURES Final Re sult * CT Head wo Contrast (10/15/2024 8:04 PM EDT) Anatomical Region Laterality Modality Head and Neck Computed Tomogra phy 10/15/2024 8:35 PM EDT Impressions 10/15/2024 8:35 PM EDT Impression: No acute intracranial pathology. This document has been electronically signed by: Noa Wylie MD on 10/15/2024 20:35:54 Narrative 10/15/2024 8:35 PM EDT INDICATION: Head trauma, mod-severe Exam: CT head without contrast Comparison: None provided Findings: No acute stroke or bleed. Horner-white differentiation maintained. Ventricles are midline. No hydrocephalus. No sinus fluid levels. No significant mastoid air cell effusion. No acute skull fracture. Procedure Note Noa Wylie MD - 10/15/2024 INDICATION: Head trauma, mod-severe Exam: CT head without contrast Comparison: None provided Findings: No acute stroke or bleed. Horner-white differentiation maintained. Ventricles are midline. No hydrocephalus. No sinus fluid levels. No significant mastoid air cell effusion. No acute skull fracture. IMPRESSION: Impression: No acute intracranial pathology. This document has been electronically signed by: Noa Wylie MD on 10/15/2024 20:35:[address] PROCEDURES Final Re sult from Last 3 Months Insurance [facility] Care Teams [employer] Machine Feeder Relationship Specialty Start Date End Date Nery Holly MD [address] [place] [address] PCP - General Internal Medicine 02/22/24
[2025-01-01 13:48] LABS: MANUAL DIFF FLAG NO
[2025-01-01 13:52] LABS: Hematocrit 38.0 % (37.0-47.0); Hemoglobin 12.5 g/dl (12.0-16.0); Imm Gran Abs Auto 0.02 X10*3/uL (0.00-0.03); Imm Gran Pct Auto 0.4 % (0.0-0.4); Lymphocytes Absolute Auto 1.5 X10*3/uL (1.2-4.9); Mean Corpuscular HGB Conc 32.9 g/dl (31.0-35.0); Mean Corpuscular Hemoglobin 28.8 pg (27.0-33.0); Mean Corpuscular Volume 87.6 fL (80.0-98.0); NRBC Abs Auto 0.000 X10*3/uL (0.0-0.012); NRBC Pct Auto 0.0 /100WBC (0.0-0.2); Platelet Count 296 X10*3/uL (160-400); Red Blood Count 4.34 X10*6/uL (4.20-5.50); White Blood Count 5.2 X10*3/uL (4.8-10.8)
[2025-01-01 14:09] LABS: Alanine Aminotransferase 21 U/L (0-31); Albumin Level 4.4 g/dL (3.5-5.0); Alkaline Phosphatase 74 U/L (39-117); Anion Gap 14 (12-20); Aspartate Amino Transferase 22 U/L (5-31); Blood Urea Nitrogen 17 mg/dL (9-16); Calcium 9.5 mg/dL (8.4-10.2); Carbon Dioxide 25 mmol/L (22-29); Chloride 108 mmol/L (96-108); Estimated Glomerular Filt Rate > 60; Potassium 3.5 mmol/L (3.3-5.1); Sodium 143 mmol/L (135-145); Total Protein 6.9 g/dL (6.5-8.0)
[2025-01-01 14:19] LABS: Carbamazepine Tegretol < 2.0 mcg/mL (5.0-12.0)
== END 2025-01-01 08:09 | disposition home or self-care (01) ==
LOC: HO.HKASLDS 08:08
PROVIDERS: Visit Provider Nurse Practitioner Family
DX: G50.0 Trigeminal neuralgia (principal); G40.909 Epilepsy, unspecified, not intractable, without status epilepticus; G44.009 Cluster headache syndrome, unspecified, not intractable; I10 Essential (primary) hypertension
CPT/HCPCS: 36415; 80053; 80156; 85025

== ENCOUNTER 2025-01-11 06:29 | Outpatient (REF) | payer OTHER, SELFPAY ==
--- OUTSIDE RECORDS SUMMARY | 2024-01-27 08:40 | XMS_ITS | Encounter Summary ---
Author Organization [facility] Address [address] [place] [address] Care Team Providers Care Business Services Sales Representative Name Role Phone María Cruz MD Primary Care Provider Mary wick Encounter Details Date Type Department Care Team (Late st Contact Info) Description 01/27/2024 8:40 AM EDT Hospital Encounter TH HISTORIC ENCOUNTERS EASTERN CONVERSION ONLY Darrell Randolph MD [address] [place] [address] Social History Tobacco Use Types Packs/Day Years [...] care for your loved ones. For example, child welfare director or elderly care for an older adult? [...] Date Recorded What is your living situation? 1 06/12/2023 Comments No Sex and Gender Information Value [...] is a 63 y.o. female. HPI: 63-year-old Maori-speaking female (history and physical done with the [...] respiratory symptom and have work-up by a document scanner including CT scan that showed left lung [...] lung (HCC) ADENOCARCINOMA OF LEFT LUNG 63-year-old Maori-speaking female, history and physical done with the help of interpretation, whohad left lower lung lobectomy more than 3 years ago for adenocarcinoma of left lung, patient had T2N0 pathology, patient chose not to have adjuvant chemotherapy, patient has been on surveillance butdid not have CT scan for more than a year. Patient has been having this atypical migraine headachethat could be due to uncontrolled blood pressure [...] Care Team (Late st Contact Info) Description 02/15/2025 11:00 AM EDT Office Visit Adult Medicine [address] [phone] Nery Holly MD [address] [place] [address] 02/26/2025 9:00 AM EST Office Visit [facility] Hematology Oncology [address] [place] [phone] Darrell Randolph MD [address] [place] [phone] 03/22/2025 9:30 AM EST Appointment [facility] Endoscopy [address] [place] [phone] Jermain Miller MD [address] [place] [phone] 03/28/2025 9:45 AM EST Office Visit Adult Medicine [address] [phone] Nery Holly MD [address] [place], [place] documented as of this encounter Visit Diagnoses Not on filedocumented in this encounter Care Teams Business Services Sales Representative Relationship Specialty Start Date End Date María Cruz MD Need Updated Address PCP - General 01/27/24 02/21/24 documented as of this encounter
--- OUTSIDE RECORDS SUMMARY | 2024-01-27 09:30 | XMS_ITS | Encounter Summary ---
Author Organization [facility] Address [address] [place] [address] Care Team Providers Care Handling Tech Name Role Phone María Cruz MD Primary Care Provider Mary wick Encounter Details Date Type Department Care Team (Late st Contact Info) Description 01/27/2024 9:30 AM EDT Hospital Encounter TH HISTORIC ENCOUNTERS EASTERN CONVERSION ONLY Darrell Randolph MD [address] [place] [address] Social History Tobacco Use Types Packs/Day Years [...] for your loved ones. For example, child care centre manager or elderly care for an older adult? [...] 11:00 AM EDT Office Visit Adult Medicine [address] [phone] Nery Holly MD [address] [place] [address] 02/26/2025 9:00 AM EST Office Visit [facility] Hematology Oncology [address] [place] [phone] Darrell Randolph MD [address] [place] [address] 03/22/2025 9:[address] [facility] Endoscopy [address] [place] [phone] Jermain Mliler MD [address] [place] [phone] 03/28/2025 9:45 AM EST Office Visit Adult Medicine [address] [phone] Nery Holly MD [address] [place] [address] documented as of this encounter Visit Diagnoses Not on filedocumented in this encounter Care Teams Handling Tech Relationship Specialty Start Date End Date María Cruz MD Need Updated Address PCP - General 01/27/24 02/21/24 documented as of this encounter
--- OUTSIDE RECORDS SUMMARY | 2025-01-11 06:42 | XMS_ITS | Clinical Summary ---
Author Organization [facility] Address [address] [place] [address] Care Team Providers Care Retail Link Analyst Name Role Phone María Cruz MD Primary Care Provider +1- [phone] Allergies Active Allergy Reactions Criticality Noted Date [...] cancer 11/20/2014 Overview: Left PET scan done [facility] 11/15/14 CT 07/11/2020 enlarging : Wedge resection converted to Left lower Lobectomy 10/29/2020 w/ pos intraoperative DX HTN (hypertension) 10/27/2013 Mastalgia 02/20/2013 Diverticulitis 02/07/2013 Overview: 01/2013 [facility] Lumbar facet arthropathy 01/21/2011 Hypothyroidism 09/02/2010 [...] age to complete this topic Care Teams Retail Link Analyst Relationship Specialty Start Date End Date María Cruz MD PCP - General Internal Medicine 11/13/20
--- OUTSIDE RECORDS SUMMARY | 2025-01-11 06:42 | XMS_ITS | Clinical Summary ---
Author Organization [facility] [address] [facility] Address [address] [place] [address] Phone Care Team Providers Care Superior Court Justice Name Role Phone Nery Holly MD Primary [...] 09/05/2019 Venous insufficiency 02/23/2018 Asthma-COPD overlap syndrome ([facility]/HCC V24, CMS/H CC V28) 08/27/2017 Assessment & Plan (05/05/2024 5:42 PM EST): No recent exacerbations, no visits to ER. Continue albuterol prn. Will continue to monitor. Pneumonitis 08/27/2017 Lung cancer (CMS/HCC V24, CMS/HCC V28) 5 Overview (01/07/2024): [facility] 07/11/2020 enlarging : Wedge resection [...] for excision. Diverticulitis 02/07/2013 Overview (01/07/2024): 01/2013 [facility] Lumbar facet arthropathy 01/21/2011 Hypothyroidism 09/02/2010 Assessment & Plan (08/16/2024 4:46 PM EDT): Assessment & Plan (05/05/2024 5:42 PM EST): Recent TSH 17.5. Will increase levothyroxine to 150mcg. Will recheck levels in 6 weeks. Orders: Thyroid stimulating hormone; Future Encounters Date Type Department Care Team Description 12/19/2024 9:45 AM EDT Office Visit Adult Medicine [address] [phone] Carol Walters PA Primary hypertension (Primary Dx); Mixed hyperlipidemia; Hypothyroidism, unspecified type; Severe obesity (BMI 35.0-39.9) with comorbidity (CMS/HCC V24, CMS/HCC V28); Screening for malignant neoplasm of colon 11/20/2024 11:30 AM EDT - 11/20/2024 11:59 PM EDT Hospital Encounter [address] [phone] Acute pain of right knee; Fall due to wet surface, subsequent encounter Discharge Disposition: Home or Self Care 11/20/2024 11:00 AM EDT Office Visit Adult Medicine [address] [phone] Carol Walters PA Right hip pain (Primary Dx); Acute pain of right knee; Neck pain on right side; Chest wall pain; Fall due to wet surface, subsequent encounter 11/14/2024 9:45 AM EDT Office Visit Adult [address] [phone] Carol Walters PA Primary hypertension (Primary Dx); Mixed hyperlipidemia; Hypothyroidism, unspecified type; Severe obesity (BMI 35.0-39.9) with comorbidity (CMS/HCC V24, CMS/HCC V28) 10/16/2024 8:43 AM EDT - 10/16/2024 11:59 PM EDT Hospital Encounter Radiology Department - [address] [phone] Discharge Disposition: Home or Self Care 10/15/2024 7:30 PM EDT - 10/15/2024 9:44 PM EDT Emergency [facility] Emergency [address] [place] [address] Contusion of neck, initial encounter (Primary Dx); Fall, initial encounter; Chest wall pain; Right hip pain Discharge Disposition: Home or Self Care from Last 3 Months Immunizations Name Administration [...] LLL lobectomy BREAST SURGERY 04/19/2016 Right PROCEDURE: CT UNLISTED PROCEDURE BREAST; COMMENT: neg Medical History Medical History Date Comments Essential hypertension, benign D X:Essential hypertension, benign Hypothyroidism DX:Hypothyroidis m Hyperlipidemia DX:Hyperlipidemi a Diverticulitis 02/07/2013 DX:Diverticuliti s; COMMENT: 01/2013 [facility] Sebaceous cyst 02/20/2013 DX:Sebaceous cys t Mastalgia [...] (HCC); COMMEN T: Left PET scan done [facility] 11/15/14 CT 07/11/2020 enlarging : Wedge [...] your loved ones. For example, child care sitter or elderly care for an older adult? [...] 11:00 AM EDT Office Visit Adult Medicine [address] [phone] Nery Holly MD [address] [place] [address] 02/26/2025 9:00 AM EST Office Visit [facility] Hematology Oncology [address] [place] [phone] Darrell Randolph MD [address] [place] [address] 03/22/2025 9:30 AM EST Appointment [facility] Endoscopy [address] [place] [phone] Jermain Miller MD [address] [place] [phone] 03/28/2025 9:45 AM EST Office Visit Adult Medicine [address] [phone] Nery Holly MD [address] [place] [phone] Health Maintenance Due Date Last Done Comments [...] LAB CHEMISTRY METHOD 12/04/2024 12:07 PM EDT [facility] ([facility] Blood Venous blood specimen / Unknown Venipuncture / Unknown 12/04/2024 8:51 AM EDT 12/04/2024 8:51 AM EDT Carol ANGEL LAB BLOOD ORDERABLES Final Resu lt [facility] [address] [place] [address], [place] [phone] * (ABNORMAL) Lipid panel with reflex to direct LDL (12/04/2024 8:51 AM EDT) Cholesterol 262(H) 0 - 200 mg/dL LAB CHEMISTRY METHOD 12/04/2024 11:22 AM EDT [facility] Triglycerides 209(H) 0 - 150 mg/dL LAB CHEMISTRY METHOD 12/04/2024 11:22 AM EDT [facility] HDL 55 >=40 mg/dL LAB CHEMISTRY METHOD 12/04/2024 11:22 AM EDT [facility] LDL Calculated 165(H) 0 - 100 mg/dL LAB CHEMISTRY METHOD 12/04/2024 11:22 AM EDT [facility] Comment:Estimated LDL Calcul ated using equation: Total cholesterol - HDL cholesterol - (Triglycerides/5) VLDL Cholesterol Daniel 41.8 mg/dL LAB CHEMISTRY METHOD 12/04/2024 11:22 AM EDT [facility] Non HDL Chol. (LDL+VLDL) 207(H) <145 mg/dL LAB CHEMISTRY METHOD 12/04/2024 11:22 AM T [facility] Chol/HDL Ratio 4.8(H) 0.0 - 4.4 LAB CHEMISTRY METHOD 12/04/2024 11:22 AM T [facility] Blood Venous blood specimen / Unknown Venipuncture / Unknown 12/04/2024 8:51 AM EDT 12/04/2024 8:51 AM EDT Carol ANGEL LAB BLOOD ORDERABLES Final Resu lt [facility] [address] [place] [address], [place] [phone] * Comprehensive metabolic panel (12/04/2024 8:51 AM EDT) [facility] Signature Sodium 140 133 - 145 mmol/L LAB CHEMISTRY METHOD 12/04/2024 11:22 AM [facility] Potassium 3.9 3.5 - 5.5 mmol/L LAB CHEMISTRY METHOD 12/04/2024 11:22 AM [facility] Chloride 108 96 - 110 mmol/L LAB CHEMISTRY METHOD 12/04/2024 11:22 AM [facility] CO2 28 21 - 32 mmol/L LAB CHEMISTRY METHOD 12/04/2024 11:22 AM [facility] Anion Gap 4 3 - 11 LAB CHEMISTRY METHOD 12/04/2024 11:22 AM [facility] Glucose 90 70 - 100 mg/dL LAB CHEMISTRY METHOD 12/04/2024 11:22 AM [facility] BUN 19 5 - 25 mg/dL LAB CHEMISTRY METHOD 12/04/2024 11:22 AM [facility] Creatinine 0.77 0.50 - 1.10 mg/dL LAB CHEMISTRY METHOD 12/04/2024 11:22 AM [facility] eGFR 87 >=60 mL/min/1. 73m2 LAB CHEMISTRY METHOD 12/04/2024 11:22 AM [facility] Comment:Calculation based on the Chronic Kidney Disease Epidemiology Collaboration (CKD-EPI) equation refit without adjustment for race. BUN/Creatinine Ratio 24.7 LAB CHEMISTRY METHOD 12/04/2024 11:22 AM [facility] Calcium 9.3 8.5 - 10.5 mg/dL LAB CHEMISTRY METHOD 12/04/2024 11:22 AM [facility] AST (SGOT) 11 10 - 42 unit/L LAB CHEMISTRY METHOD 12/04/2024 11:22 AM [facility] ALT (SGPT) 24 10 - 60 unit/L LAB CHEMISTRY METHOD 12/04/2024 11:22 AM EDT [facility] Alkaline Phosphatase 79 42 - 121 unit/L LAB CHEMISTRY METHOD 12/04/2024 11:22 AM EDT [facility] Total Protein 6.5 6.0 - 8.0 g/dL LAB CHEMISTRY METHOD 12/04/2024 11:22 AM EDT [facility] Albumin 3.9 3.2 - 5.0 g/dL LAB CHEMISTRY METHOD 12/04/2024 11:22 AM EDT [facility] Total Bilirubin 0.9 0.0 - 1.4 mg/dL LAB CHEMISTRY METHOD 12/04/2024 11:22 AM EDT [facility] Blood Venous blood specimen / Unknown Venipuncture / Unknown 12/04/2024 8:51 AM EDT 12/04/2024 8:51 AM EDT Craol ANGEL LAB BLOOD ORDERABLES Final Resu lt [facility] [address] [place] [address], * XR Knee 4+ Views Right (11/20/2024 [...] Signed Date: 11/20/2024 16:35 ET Workstation ID: [id number] Transcribed By: Self Edit Transcribed Date: 11/20/2024 [...] Signed Date: 11/20/2024 16:35 ET Workstation ID: [id number] Transcribed By: Self Edit Transcribed Date: 11/20/2024 16:35 ET us Carol ANGEL IMG XR PROCEDURES Final Result [...] Signed Date: 10/16/2024 09:38 ET Workstation ID: [id number] Transcribed By: Self Edit Transcribed Date: 10/16/2024 [...] Signed Date: 10/16/2024 09:38 ET Workstation ID: [id number] Transcribed By: Self Edit Transcribed Date: 10/16/2024 [...] Signed Date: 10/16/2024 08:29 ET Workstation ID: [id number] Transcribed By: Self Edit Transcribed Date: 10/16/2024 [...] Signed Date: 10/16/2024 08:29 ET Workstation ID: [id number] Transcribed By: Self Edit Transcribed Date: 10/16/2024 08:28 ET us Fannie ANGEL IMG XR PROCEDURES Final Re [...] Signed Date: 10/16/2024 08:37 ET Workstation ID: [id number] Transcribed By: Self Edit Transcribed Date: 10/16/2024 [...] Signed Date: 10/16/2024 08:37 ET Workstation ID: [id number] Transcribed By: Self Edit Transcribed Date: 10/16/2024 08:36 ET us Fannie ANGEL IMG XR PROCEDURES Final Re [...] document has been electronically signed by: Noa Wylei MD on 10/15/2024 20:35:54 us [address] ANGEL IMG CT PROCEDURES Final Re sult from Last 3 Months Insurance [facility] PLAN Care Teams Superior [address] Justice Relationship Specialty Start Date End Date Nery Holly MD [address] [place] [address] PCP - General Internal Medicine 02/22/24
== END 2025-01-11 06:30 | disposition home or self-care (01) ==
LOC: CF 06:29
PROVIDERS: Visit Provider Internal Medicine
DX: Z13.89 Encounter for screening for other disorder (principal)

== ENCOUNTER 2025-04-11 08:52 | Outpatient (AMB) | payer OTHER, SELFPAY ==
--- OUTSIDE RECORDS SUMMARY | 2024-01-27 07:40 | XMS_ITS | Encounter Summary ---
Author Organization [facility] Address [address] [place] [address] Care Team Providers Care Track Worker Name Role Phone María Cruz MD Primary Care Provider Mary wick Encounter Details Date Type Department Care Team (Late st Contact Info) Description 01/27/2024 8:40 AM EDT Hospital Encounter TH HISTORIC ENCOUNTERS EASTERN CONVERSION ONLY Darrell Randolph MD [address] [place] [address] Social History Tobacco Use Types Packs/Day Years Used Date Smoking Tobacco: Never Smokeless Tobacco: Never Alcohol Use Standard Drinks/Week Comments No 0 (1 standard drink = 0.6 oz pur e alcohol) Housing Instability Answer Date Recorde d Are you worried that in the next 2 months you may not have stable housing? No 04/11/2024 Food Access & Nutrition Answer Date Rec orded Do you have access to a vari ety of food including fruits and vegetables? Yes 04/11/2024 Health Literacy Answer Date Recorded How often do you need to hav e someone help you when you read instructions, pamphlets, or other written material from your doctor or pharmacy? Never 04/11/2024 Caregiver: How often do you need to have someone help you when you read instructions, pamphlets, or other written material from your doctor or pharmacy? Not on file 04/11/2024 Financial Risk Answer Date Recorded How hard is it for you to pa y for the very basics like food, housing, medical care, and air conditioning / heating? Very hard 04/11/2024 Transportation Answer Date Recorded Has the lack of transportati on kept you from meetings, work, or from getting things needed for daily living? No Has the lack of transportati on kept you from medical appointments or from getting medications? No 04/11/2024 Social Isolation Answer Date Recorded How often do you feel lonely or isolated from th ose around you? Never 04/11/2024 Food Risk Answer Date Recorded Within the past 12 months we worried whether our food would run out before we got money to buy more. Never true 04/11/2024 Within the past 12 months th e food we bought just didn't last and we didn't have money to get more. Never true 04/11/2024 Dependent Care Answer Date Recorded Do you need help finding or paying for care for your loved ones. For example, early childhood associate or elderly care for an older adult? No 04/11/2024 Education Answer Date Recorded Do you think completing more education or training, like finishing a GED, going to college, or learning a trade, would be helpful for you? No 04/11/2024 Employment and Income Answer Date Recor ded During the last four weeks, have you been actively looking for work? No 04/11/2024 Living Situation Answer Date Recorded What is your living situation? Unrecognized valu e 04/11/2024 Comments No Sex and Gender Information Value Date Recorded Sex Assigned at Not on file Legal Sex Female 5:43 PM EST Gender Identity Not on file Sexual Orientation Not on file documented as of this encounter Last Filed Vital Signs Vital Sign Reading Time Taken Comments Blood Pressure 157/94 01/27/2024 9:32 AM EDT Sitting Left arm Pulse 83 01/27/2024 9:32 AM EDT Temperature - - Respiratory Rate - - Oxygen Saturation - - Inhaled Oxygen Concentration - - Weight 112 kg (247 lb) 01/27/2024 9:32 AM EDT Height 168.9 cm (5' 6.5 ) 08/10/2023 10 :01 AM EDT Body Mass Index 39.27 08/10/2023 10:01 AM EDT documented in this encounter Progress Notes * Darrell Randolph MD - 01/27/2024 9:30 AM EDT CHIEF COMPLAINT: Follow-up IDENTIFIER:Elba Ruiz is a 63 y.o. female. HPI: 63-year-old Guyanese-speaking female (history and physical done with the help of interpretation), patient had left lower lung lobectomy more than 3 years ago, patient had T2 N0 pathology did not have any adjuvant treatment, patient has been on surveillance but did not have any CT scan since last year ROS: Having a lot of social issues at home For last few days having some right-sided headache on and off Denies any anorexia or weight loss Denies any chest pain Denies any significant cough shortness of breath hemoptysis Denies any new unusual aches and pain Oncology History Overview Note Patient initially in 2016 have significant respiratory symptom and have 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, only adverse features was visceral pleural invasion, patient had T2N0 pathology (stageIb disease) Patient saw me on 11/20/2020 regarding adjuvant treatment, I sent her tumor/tissue for determaRx testing (because her risk factor according to NCCN guidelines were intermediate), patient's determaRx result showed low risk disease so decision made not to have any adjuvant chemotherapy Patient has surveillance/follow-up CT scan in August 2021 that showed no significant changes compared to prior study with left lower lung surgical sequelae no new suspicious pulmonary nodule or thoracicadenopathy Patient has been on surveillance by Dr. Neal, patient had a CT scan for follow- up on 07/27/2022 that showed surgical changes in the left lower lung otherwise no evidence of any adenopathy pulmonary nodule or any lesions suspicious for recurrence PAST MEDICAL HISTORY: Patient Active Problem List Diagnosis SNOMED CT(R) ??? Asthma-COPD overlap syndrome (HCC) ASTHMA-CHRONIC OBSTRUCTIVE PULMONARY DISEASE OVERLAP SYNDROME ??? Diverticulitis DIVERTICULITIS ??? DJD (degenerative joint disease) of knee OSTEOARTHRITIS OF KNEE ??? Fatty liver STEATOSIS OF LIVER ??? Helicobacter pylori gastritis HELICOBACTER PYLORI-ASSOCIATED GASTRITIS ??? HTN (hypertension) HYPERTENSIVE DISORDER ??? Hyperlipidemia HYPERLIPIDEMIA ??? Hypothyroidism HYPOTHYROIDISM ??? Lumbar facet arthropathy ARTHROPATHY OF LUMBAR FACET JOINT ??? Lung cancer (HCC) MALIGNANT TUMOR OF LUNG ??? Mastalgia PAIN OF BREAST ??? Migraine without status migrainosus, not intractable MIGRAINE ??? Pneumonitis PNEUMONITIS ??? Venous insufficiency VASCULAR INSUFFICIENCY SOCIAL HISTORY: Social History Tobacco Use ??? Smoking status: Never ??? Smokeless tobacco: Never Substance Use Topics ??? Alcohol use: Never FAMILY HISTORY: Family History Problem Relation Age of Onset ??? Cancer Mother Thyroid ??? Cancer Maternal Aunt Breast Family Status Relation Name Status ??? Mother (Not Specified) ??? Mat Aunt (Not Specified) Current Outpatient Medications: ??? acetaminophen (TYLENOL) 650 MG CR tablet, Take 1 tablet (650 mg total) by mouth., Disp: , Rfl: ??? albuterol (PROVENTIL) (2.5 MG/3ML) 0.083% nebulizer solution, Inhale 3 mL (2.5 mg total) into the lungs., Disp: , Rfl: ??? carbamide peroxide (DEBROX) 6.5 % otic solution, Place 5 drops in ear(s)., Disp: , Rfl: ??? cyclobenzaprine (FLEXERIL) 5 MG tablet, Take 1 tablet (5 mg total) by mouth., Disp: , Rfl: ??? fluticasone (FLONASE) 50 MCG/ACT nasal spray, Two sprays per nostril once daily as needed for allergies, Disp: , Rfl: ??? gabapentin (NEURONTIN) 300 MG capsule, Take 1 capsule (300 mg total) by mouth., Disp: , Rfl: ??? hydroCHLOROthiazide (HYDRODIURIL) tablet 25 mg, Take 1 tablet (25 mg total) by mouth daily., Disp: , Rfl: ??? levothyroxine (SYNTHROID) tablet 137 mcg, Take 1 tablet (137 mcg total) by mouth daily., Disp: , Rfl: ??? losartan (COZAAR) tablet 50 mg, Take 1 tablet (50 mg total) by mouth daily., Disp: , Rfl: ??? meclizine (ANTIVERT) 25 MG tablet, Take 1 tablet (25 mg total) by mouth., Disp: , Rfl: ??? methocarbamol (ROBAXIN) 500 MG tablet, TAKE 1 TABLET (ORAL) 3 TIMES PER DAY CUANDO SEA NECESARIO FOR 5 DAYS, Disp: , Rfl: ??? omeprazole (PriLOSEC) 40 MG capsule, Take 1 capsule (40 mg total) by mouth., Disp: , Rfl: ??? ondansetron (ZOFRAN) 4 MG tablet, Take 1 tablet (4 mg total) by mouth., Disp: , Rfl: ??? oxybutynin (DITROPAN-XL) 5 MG 24 hr tablet, Take 1 tablet (5 mg total) by mouth daily., Disp: ,Rfl: ??? oxyCODONE (ROXICODONE) 5 MG immediate release tablet, TOME PHYLLIS TABLETA POR V A ORAL CADA CUATROA SEIS HORAS CUANDO SEA NECESARIO PARA EL DOLOR, Disp: , Rfl: ??? Senna-Time 8.6 MG tablet, TOME DOS TABLETAS POR V A ORAL AL ACOSTARSE, Disp: , Rfl: ??? sucralfate (CARAFATE) 1 g tablet, TAKE 1 TABLET BY MOUTH 2 TIMES DAILY (BEFORE MEALS), Disp: , Rfl: ??? SUMAtriptan (IMITREX) 100 MG tablet, Take 1 tablet (100 mg total) by mouth., Disp: , Rfl: You are allergic to the following Date Reviewed: 01/27/2024 Allergen Reactions Penicillins Hives PHYSICAL EXAM: BP (!) 157/94 (BP Location: Left arm) Pulse 83 Temp 97.9 ??F (36.6 ??C) (Temporal) Wt 112 kg (247 lb) SpO2 100% BMI 39.27 kg/m?? ECOG 0-1 APPEARANCE: Alert and oriented in no acute distress EYES: nonicteric sclera pink conjunctiva ORAL CAVITY: No erythema or exudates NECK: Neck supple, no cervical and supraclavicular adenopathy, HEART: normal S1 and S2 LUNG: Distant breath sound otherwise clear bilaterally LYMPH NODES: No palpable superficial adenopathy ABDOMEN: Obese, distended, soft, nontender and no organomegaly appreciated EXTREMITIES: Trace edema of lower extremity IMPRESSION: SNOMED CT(R) 1. Adenocarcinoma of left lung (HCC) ADENOCARCINOMA OF LEFT LUNG 63-year-old Guyanese-speaking female, history and physical done with the help of interpretation, whohad left lower lung lobectomy more than 3 years ago for adenocarcinoma of left lung, patient had T2N0 pathology, patient chose not to have adjuvant chemotherapy, patient has been on surveillance butdid not have CT scan for more than a year. Patient has been having this atypical migraine headache that could be due to uncontrolled blood pressure or some other underlying etiology, less likely related to her lung cancer, I would like to check CT scan of the chest if there is any question then I will do further workup PLAN: I will try to get surveillance CT scan in next 1 to 2 months, I will see her back after the CAT scan in few months I recommend to discuss with PCP regarding her worsening headache, I doubt this is related to malignancy Darrell Randolph MD documented in this encounter Plan of Treatment Upcoming Encounters Date Type Department Care Team (Late st Contact Info) Description 06/05/2025 2:30 PM EST Office Visit Adult Medicine [address] [phone] Nery Holly MD [address] [place] [address] documented as of this encounter Visit Diagnoses Not on filedocumented in this encounter Care Teams Track Worker Relationship Specialty Start Date End Date María Cruz MD Need Updated Address PCP - General 01/27/24 02/21/24 documented as of this encounter
--- OUTSIDE RECORDS SUMMARY | 2024-01-27 08:30 | XMS_ITS | Encounter Summary ---
Author Organization [facility] Address [address] [place] [address] Care Team Providers Care Packaging Tech Name Role Phone María Cruz MD Primary Care Provider Mary wick Encounter Details Date Type Department Care Team (Late st Contact Info) Description 01/27/2024 9:30 AM EDT Hospital Encounter TH HISTORIC ENCOUNTERS EASTERN CONVERSION ONLY Darrell Randolph MD [address] [place] [address] Social History Tobacco Use Types Packs/Day Years [...] care for your loved ones. For example, teacher early childhood development or elderly care for an older adult? [...] on file documented as of this encounter Plan of Treatment Upcoming Encounters Date Type Department Care Team (Late st Contact Info) Description 06/05/2025 2:30 PM EST Office Visit Adult Medicine [address] [phone] Nery Holly MD [address] [place] [address] documented as of this encounter Visit Diagnoses Not on filedocumented in this encounter Care Teams Packaging Tech Relationship Specialty Start Date End Date María Cruz MD Need Updated Address PCP - General 01/27/24 02/21/24 documented as of this encounter
--- NOTE | 2025-04-11 08:58 | MHC.OFFVIS ---
Vital Signs 04/11/25 08:59 Height 5 ft 8 in Weight 243 lb BMI 36.9 BP 136/83 Blood Pressure Location Rt radial Position Sitting Respiration 16 Pulse 73 Pulse Source Pulse Oximeter Pulse Oximetry (%) 97 Oxygen Delivery Method Room Air Intake Visit Reasons: Headaches Emissions Engineer Required: Yes Emissions Engineer Services: Emissions Engineer Offered & Declined Emissions Engineer Name: prefers to translate Title I Director: Title I Director Present Accompanied by: Farrukh Brandt Allergies Penicillins Allergy (Verified 04/11/25 09:03) Rash Medication List - Last Reconciled 04/11/25 by Cyndy Bhakta LPN acetaminophen ER 650 mg PO TID albuterol sulfate 90 mcg/actuation (Ventolin HFA) inhalation amlodipine 5 mg PO DAILY atorvastatin 80 mg PO DAILY benzonatate 100 mg PO TID carbamazepine ER 200 mg (2 x 100 mg) PO BID 90 days diclofenac potassium 50 mg PO BID PRN 30 days MDD max 15 days per month ezetimibe mg PO famotidine 20 mg PO DAILY hydrochlorothiazide 25 mg PO DAILY levothyroxine 125 mcg PO DAILY losartan 50 mg PO DAILY metoprolol succinate ER 200 mg PO DAILY omeprazole 20 mg PO DAILY oxybutynin chloride ER 5 mg PO DAILY Oxygen Home Use 10-15 lpm, at onset of headache, via non-rebreather mask x's up to 20 minutes per headache attack. M-tanks and E-tanks. sacubitril-valsartan 49-51 mg (Entresto) 1 tab PO BID sumatriptan succinate 50 - 100 mg orally at onset of headache, may repeat in 2 hrs PRN; max 2 tabs per day or 4 tabs/week (may take with diclofenac) 30 days MDD 2 tabs HPI HPI Headaches: Details: History of Present Illness The patient is a 65 year old female presenting for a nerve block procedure and management of her chronic pain conditions. Her previous set of nerve block injections provided 80% pain relief that lasted for a few months. The patient also has a history of right lumbar radiculopathy, for which a right L4-5 transforaminal epidural steroid injection was scheduled. She was unable to attend that appointment, and the prior authorization for the procedure has . Pain Description - The patient has pain related to right lumbar radiculopathy. - Previous nerve block injections for facial pain provided 80% relief for a few months. Physical Exam - General: Patient was placed in a sitting position for the procedure, which she tolerated well. - Neurologic: Injection sites for the supraorbital, supratrochlear, and infraorbital nerves were identified using a landmark technique. Results Pain Management: - Analgesia: The last set of injections provided 80% relief for a few months. Procedure - Procedure: Right supraorbital, supratrochlear, and infraorbital nerve blocks were performed. - Consent: Informed consent was obtained prior to the procedure. - Description: The patient was placed in a sitting position. - A 27-gauge needle was used to inject 0.5 mL of 0.5% bupivacaine at each of the specified nerves based on a landmark technique. - Outcome: The patient tolerated the procedure well and was discharged in stable condition. [facility] Surgical History History of cardiac defibrillator placement H/O hernia repair Hx of tonsillectomy Hx of appendectomy H/O: hysterectomy Family History Mother Hyperlipidemia Sister Hyperlipidemia Social History Alcohol intake: never Patient Tobacco Use Status: Never used Tobacco Physical Exam Vital Signs: Last Vital Signs Pulse 73 04/11/25 08:59 Resp 16 04/11/25 08:59 BP 136/83 04/11/25 08:59 Pulse Ox 97 04/11/25 08:59 Oxygen Delivery Method Room Air 04/11/25 08:59 BMI result Body Mass Index 36.9 Assessment & Plan Assessment & Plan (1) Supraorbital neuralgia: Comment: Right Code(s): G50.0 - Trigeminal neuralgia Category: Medical (2) Cluster headache: Code(s): G44.009 - Cluster headache syndrome, unspecified, not intractable Category: Medical Qualifiers: Headache chronicity pattern: unspecified pattern Intractability: not intractable Qualified Code(s): G44.009 - Cluster headache syndrome, unspecified, not intractable (3) Lumbago with sciatica: Code(s): M54.40 - Lumbago with sciatica, unspecified side Category: Medical Plan Plan Patient was informed and verbally consented to the use of an ambient scribe for clinic note documentation during this visit. 1. Facial Pain - The patient underwent right supraorbital, supratrochlear, and infraorbital nerve blocks using 0.5% bupivacaine. - Her previous injections provided 80% relief for 4-6 months. - We will follow up and repeat injections as needed. 2. Right Lumbar Radiculopathy - The prior authorization for the patient's back procedure has . - She missed her scheduled right L4-5 TFESI. - A new authorization will be obtained, and the injection will be rescheduled. - The patient has been advised that if she misses the rescheduled appointment, it will not be scheduled again. Discussion Notes I confirmed with the patient that her prior injections provided good relief. I obtained informed consent to proceed with the supraorbital, supratrochlear, and infraorbital nerve blocks, which the patient tolerated well. We will follow up and repeat these injections as needed based on her response. We also discussed that the prior authorization for her back procedure has because she was unable to make a prior appointment. I explained that we will have to obtain a new authorization and reschedule the injection. I advised her that if the rescheduled appointment is missed, we will not be able to schedule it again. Patient Instructions - We will get a new insurance authorization for your back procedure and will contact you to reschedule the appointment. - It is very important that you attend the rescheduled back injection appointment, as it will not be scheduled again if it is missed. - Please follow up as needed for repeat nerve block injections for your facial pain. Coding Level of Care Code Procedure Only Diagnoses Supraorbital neuralgia G50.0 Cluster headache, not intractable, unspecified chronicity pattern G44.009 Headache chronicity pattern: unspecified pattern Intractability: not intractable Lumbago with sciatica M54.40
--- OUTSIDE RECORDS SUMMARY | 2025-04-11 08:58 | XMS_ITS | Clinical Summary ---
Author Organization [facility] Prior to 09/16/24 Address [address] [place] [address] Care Team Providers Care Secondary Art Teacher Name Role Phone María Cruz MD Primary Care Provider +1- [phone] Allergies Active Allergy Reactions Criticality Noted Date [...] (ROXICODONE) 5 MG immediate release tablet TOME PHLYLIS TABLETA POR V A ORAL CADA CUATRO [...] cancer 11/20/2014 Overview: Left PET scan done [facility] 11/15/14 CT 07/11/2020 enlarging : Wedge resection converted to Left lower Lobectomy 10/29/2020 w/ pos intraoperative DX HTN (hypertension) 10/27/2013 Mastalgia 02/20/2013 Diverticulitis 02/07/2013 Overview: 01/2013 [facility] Lumbar facet arthropathy 01/21/2011 Hypothyroidism 09/02/2010 [...] of 2 - PCV) 04/30/2017 04/30/2016 Pneumococcal Vaccine (2 of 2 - PCV) [...] age to complete this topic Care Teams Secondary Art Teacher Relationship Specialty Start Date End Date María Cruz MD PCP - General Internal Medicine 11/13/20
--- OUTSIDE RECORDS SUMMARY | 2025-04-11 08:58 | XMS_ITS | Clinical Summary ---
Author Organization [facility] [address] [facility] Address [address] [place] [address] Phone Care Team Providers Care Director Of Sports Medicine Name Role Phone Nery Holly MD Primary [...] SWELLING). 100 g 5 08/04/19 25 Active methocarbamoL (ROBAXIN) 750 mg tablet [...] day. 90 each 12/20/19 25 026 Active oxyBUTYnin XL (DITROPAN-XL) 5 mg 24 hr tablet TAKE 1 TABLET BY MOUTH 1 TIME EACH DAY. 90 tablet 1 02/09/20 25 Active famotidine (PEPCID) 20 mg tabletIndications: Essential (primary) hypertension TAKE 1 TABLET (20 MG TOTAL) BY MOUTH ONE TIME EACH DAY 90 tablet 1 02/09/20 25 Active hydroCHLOROthiazid e (HYDRODIURIL) 25 mg tabletIndications: Essential (primary) hypertension TAKE 1 TABLET BY MOUTH 1 TIME EACH DAY. 90 tablet 1 02/09/20 25 Active polyethylene glycol (Golytely) 236-22.74-6.74 -5.86 gram solution Take 4L by mouth once for one dose. May substitue any PEG. Starting at 2PM the day before your procedure drink 1 8oz glasses at your own pace until you complete half of the gallon. Finish 2nd half of the gallon at 8PM. 4000 mL 03/08/20 25 Active bisacodyL (DULCOLAX) 5 mg EC tablet Take 2 tablets by mouth right before beginning bowel prep. See instructions provided by the office 2 tablet 03/08/20 25 Active Active Problems Problem Noted Date Diagnosed [...] 11/20/2014 Overview (01/07/2024): [facility] 07/11/2020 enlarging : Wedge resection [...] for excision. Diverticulitis 02/07/2013 Overview (01/07/2024): 01/2013 [facility] Lumbar facet arthropathy 01/21/2011 Hypothyroidism 09/02/2010 Assessment & Plan (08/16/2024 4:46 PM EDT): Assessment & Plan (05/05/2024 5:42 PM EST): Recent TSH 17.5. Will increase levothyroxine to 150mcg. Will recheck levels in 6 weeks. Orders: Thyroid stimulating hormone; Future Immunizations Immunization Administration Dates Next Due Influenza Quadravalent, MDCK [...] LLL lobectomy BREAST SURGERY 04/19/2016 Right PROCEDURE: CO UNLISTED PROCEDURE BREAST; COMMENT: neg Medical History Medical History Date Comments Essential hypertension, benign D X:Essential hypertension, benign Hypothyroidism DX:Hypothyroidis m Hyperlipidemia DX:Hyperlipidemi a Diverticulitis 02/07/2013 DX:Diverticuliti s; COMMENT: 01/2013 [facility] Sebaceous cyst 02/20/2013 DX:Sebaceous cys t Mastalgia 02/20/2013 DX:Mastalgia Moderate persistent asthma w ithout complication 04/08/2016 DX:Moderate persistent asthm a without complication Lumbar facet arthropathy 01/21/2011 DX:Lumb ar facet arthropathy Venous insufficiency 02/23/2018 DX:Venous i nsufficiency DJD (degenerative joint dise ase) of knee 09/19/2020 DX:DJD (degenerative joint d isease) of knee Lung cancer ([facility] V24, [facility] V28) 11/20/2014 DX:Lung cancer (HCC); COMMEN T: Left PET scan done [facility] 11/15/14 CT 07/11/2020 enlarging : Wedge resection [...] do you feel lonely or isolated from ose around you? Never 04/11/2024 Food Risk [...] 2:30 PM EST Office Visit Adult Medicine [facility] [address] [place] [address] Nery Holly MD [address] [place], [place] Health Maintenance Due Date Last Done Comments Zoster Vaccines (1 of 2) 1980 RSV Immunization Adult Patients (1 - Risk 50-74 years 1-dose series) 2011 Pneumococcal Vaccine: 50+ Years (2 of 2 - PCV) 04/30/2017 04/30/2016 HIV Screening 03/28/2022 Hepatitis C Screening 03/28/2022 [...] Procedure Name Priority Date/Time Associated Diagnosis Comments COMPREHENSIVE METABOLIC PANEL Routine 12/04/2024 8:51 AM EDT Mixed hyperlipidemia LIPID PANEL WITH REFLEX TO DIRECT LDL Routine 12/04/2024 8:51 AM EDT Mixed hyperlipidemia MG MAMMO DIGITAL DIAGNOSTIC W WALTER BILAT Routine 10/16/2024 9:24 AM EDT Other abnormal and inconclusive findings on diagnostic imaging of breast from Last 3 Months or Most Recently Relevant to Health Maintenance Results * (ABNORMAL) Lipid panel with reflex to direct LDL (12/04/2024 8:51 AM EDT) Cholesterol 262(H) 0 - 200 mg/dL LAB CHEMISTRY METHOD 12/04/2024 11:22 AM EDT [facility] Triglycerides 209(H) 0 - 150 mg/dL LAB CHEMISTRY METHOD 12/04/2024 11:22 AM EDT [facility] HDL 55 >=40 mg/dL LAB CHEMISTRY METHOD 12/04/2024 11:22 AM EDT [facility] LDL Calculated 165(H) 0 - 100 mg/dL LAB CHEMISTRY METHOD 12/04/2024 11:22 AM EDT [facility] Comment:Estimated LDL Calcul ated using equation: Total cholesterol - HDL cholesterol - (Triglycerides/5) VLDL Cholesterol Daniel 41.8 mg/dL LAB CHEMISTRY METHOD 12/04/2024 11:22 AM [facility] Non HDL Chol. (LDL+VLDL) 207(H) <145 mg/dL LAB CHEMISTRY METHOD 12/04/2024 11:22 AM T [facility] Chol/HDL Ratio 4.8(H) 0.0 - 4.4 LAB CHEMISTRY METHOD 12/04/2024 11:22 AM [facility] Blood Venous blood specimen / Unknown Venipuncture / Unknown 12/04/2024 8:51 AM EDT 12/04/2024 8:51 AM EDT us Carol ANGEL LAB BLOOD ORDERABLES Final Resu lt [facility] [address] [place] [address], [place] [phone] * Comprehensive metabolic panel (12/04/2024 8:51 AM EDT) Sodium 140 133 - 145 mmol/L LAB CHEMISTRY METHOD 12/04/2024 11:22 AM [facility] Potassium 3.9 3.5 - 5.5 mmol/L LAB CHEMISTRY METHOD 12/04/2024 11:22 AM [facility] Chloride 108 96 - 110 mmol/L LAB CHEMISTRY METHOD 12/04/2024 11:22 AM [facility] CO2 28 21 - 32 mmol/L LAB CHEMISTRY METHOD 12/04/2024 11:22 AM [facility] Anion Gap 4 3 - 11 LAB CHEMISTRY METHOD 12/04/2024 11:22 AM [facility] Glucose 90 70 - 100 mg/dL LAB CHEMISTRY METHOD 12/04/2024 11:22 AM [facility] BUN 19 5 - 25 mg/dL LAB CHEMISTRY METHOD 12/04/2024 11:22 AM [facility] Creatinine 0.77 0.50 - 1.10 mg/dL LAB CHEMISTRY METHOD 12/04/2024 11:22 AM [facility] eGFR 87 >=60 mL/min/1. 73m2 LAB CHEMISTRY METHOD 12/04/2024 11:22 AM [facility] Comment:Calculation based on the Chronic Kidney Disease Epidemiology Collaboration (CKD-EPI) equation refit without adjustment for race. BUN/Creatinine Ratio 24.7 LAB CHEMISTRY METHOD 12/04/2024 11:22 AM [facility] Calcium 9.3 8.5 - 10.5 mg/dL LAB CHEMISTRY METHOD 12/04/2024 11:22 AM [facility] AST (SGOT) 11 10 - 42 unit/L LAB CHEMISTRY METHOD 12/04/2024 11:22 AM [facility] ALT (SGPT) 24 10 - 60 unit/L LAB CHEMISTRY METHOD 12/04/2024 11:22 AM [facility] Alkaline Phosphatase 79 42 - 121 unit/L LAB CHEMISTRY METHOD 12/04/2024 11:22 AM [facility] Total Protein 6.5 6.0 - 8.0 g/dL LAB CHEMISTRY METHOD 12/04/2024 11:22 AM [facility] Albumin 3.9 3.2 - 5.0 g/dL LAB CHEMISTRY METHOD 12/04/2024 11:22 AM [facility] Total Bilirubin 0.9 0.0 - 1.4 mg/dL LAB CHEMISTRY METHOD 12/04/2024 11:22 AM [facility] Blood Venous blood specimen / Unknown Venipuncture / Unknown 12/04/2024 8:51 AM EDT 12/04/2024 8:51 AM EDT us Carol ANGEL LAB BLOOD ORDERABLES Final Resu lt [facility] [address] [place] [address], [place] [phone] * MG Mammo Digital Diagnostic w Walter [...] Signed Date: 10/16/2024 09:38 ET Workstation ID: [id number] Transcribed By: Self Edit Transcribed Date: 10/16/2024 [...] Signed Date: 10/16/2024 09:38 ET Workstation ID: [id number] Transcribed By: Self Edit Transcribed Date: 10/16/2024 09:31 ET us Addis Cope MD IMG BI PROCEDURES Final Res ult from Last 3 Months or Most Recently Relevant to Health Maintenance Care Teams Director Of Sports Medicine Relationship Specialty Start Date End Date Nery Holly MD [address] [place] [phone] PCP - General Internal Medicine 02/22/24
[2025-04-11 08:59] VITALS: BP 136/83; PULSE 73; RESP 16; O2SAT 97; BMI 36.9
== END 2025-04-11 09:45 | disposition home or self-care (01) ==
LOC: HO.PMC 08:53
PROVIDERS: Visit Provider Internal Medicine
DX: G50.0 Trigeminal neuralgia (principal); G44.009 Cluster headache syndrome, unspecified, not intractable; M54.40 Lumbago with sciatica, unspecified side
CPT/HCPCS: 64400

== ENCOUNTER → 2025-04-11 08:52 | Outpatient (BNVA) | payer OTHER, SELFPAY | PROVIDERS: Visit Provider Internal Medicine | DX: G50.0 Trigeminal neuralgia (principal); G44.009 Cluster headache syndrome, unspecified, not intractable; M54.41 Lumbago with sciatica, right side | CPT/HCPCS: 64400 ==